=== PATIENT | male | born 1965 | race Caucasian/White ===

== ENCOUNTER 2020-04-07 01:07 | Observation (INO) | payer OTHER ==
[~2020-04-07] VITALS: Ht 185.4 cm; Wt 199.1 kg
--- NOTE | 2020-04-07 01:15 | PHYS DOC ---
Past Medical History Past Medical History: CAD, CHF, MRSA Past Medical History morbid obesity Past Surgical History: Other Past Surgical History cardiac stents [facility] about 2 yrs ago, Ortho surgeries that included ankle fusion, knee surgery, hip surgery and left arm surgery Smoking Status: Never Smoker Alcohol Use: None Drug Use: None General Adult EDM: Chief Complaint: CHEST PAIN HPI: HPI: Patient is a 54 year old male who presents for evaluation of chest pain and upper back pain that started just before arrival. Patient states that it was sudden onset and woke him up from sleep. Patient brought in by [facility] for evaluation. Patient took a [place] and nitroglycerin with improvement of symptoms. Patient states the pain did radiate up into his neck. Patient has a cardiac history and has cardiac stents placed approximately 2 years ago. Patient's last stress test was about 6 months ago. Patient denies any current complaints of chest pain. He was hypertensive on arrival but that improved spontaneously. Patient is normally seen at [facility]. Patient was recently admitted to that facility in the past 48 hours and discharged after treatment of MRSA infection Review of Systems: Review of Systems: Constitutional: Denies fever or chills. [] Eyes: Denies change in visual acuity. [] HENT: Denies nasal congestion or sore throat. [] Respiratory: Denies cough or shortness of breath. [] Cardiovascular: has chest pain and chronic edema. [] GI: Denies abdominal pain, nausea, vomiting, bloody stools or diarrhea. [] : Denies dysuria. [] Musculoskeletal: has upper back pain no joint pain. [] Integument: Denies rash. [] Neurologic: Denies headache, focal weakness or sensory changes. [] Endocrine: Denies polyuria or polydipsia. [] Lymphatic: Denies swollen glands. [] Psychiatric: Denies depression or anxiety. [] Heart Score: HEART Score for Chest Pain: HEART Score for Chest Pain Response (Comments) Value History Moderately Suspicious 1 ECG Normal 0 Age >45 - < 65 1 Risk Factors 1 or 2 Risk Factors 1 Troponin < Normal Limit 0 Total 3 Risk Factors: Risk Factors: DM, Current or recent (<one month) smoker, HTN, HLP, family history of CAD, obesity. Risk Scores: Score 0 - 3: 2.5% MACE over next 6 weeks - Discharge Home Score 4 - 6: 20.3% MACE over next 6 weeks - Admit for Clinical Observation Score 7 - 10: 72.7% MACE over next 6 weeks - Early Invasive Strategies Physical Exam: PE: Constitutional: Well developed, well nourished, mild acute distress, non-toxic appearance. [] HENT: Normocephalic, atraumatic, bilateral external ears normal, oropharynx moist, no oral exudates. [] Eyes: PERRL, EOMI, conjunctiva normal, no discharge. [] Neck: Normal range of motion, no tenderness, supple, no stridor. [] Cardiovascular:Heart rate regular rhythm, no murmur [] Lungs & Thorax: Bilateral breath sounds clear to auscultation [] Abdomen: Bowel sounds normal, soft, no tenderness, no masses. [] Skin: Warm, dry, no erythema, no rash. [] Back: No tenderness. [] Extremities: No tenderness, no cyanosis, ROM intact, no edema. [] Neurologic: Alert and oriented X 3, normal motor function, normal sensory function, no focal deficits noted. [] Psychologic: Affect normal, judgement normal, mood normal. [] Current Patient Data: Labs: Laboratory Tests Test 04/07/20 01:30 04/07/20 01:33 White Blood Count 5.0 x10^3/uL Red Blood Count 4.13 x10^6/uL Hemoglobin 13.5 g/dL Hematocrit 39.5 % Mean Corpuscular Volume 96 fL Mean Corpuscular Hemoglobin 33 pg Mean Corpuscular Hemoglobin Concent 34 g/dL Red Cell Distribution Width 14.1 % Platelet Count 117 x10^3/uL Neutrophils (%) (Auto) 53 % Lymphocytes (%) (Auto) 28 % Monocytes (%) (Auto) 14 % Eosinophils (%) (Auto) 5 % Basophils (%) (Auto) 1 % Neutrophils # (Auto) 2.7 x10^3/uL Lymphocytes # (Auto) 1.4 x10^3/uL Monocytes # (Auto) 0.7 x10^3/uL Eosinophils # (Auto) 0.2 x10^3/uL Basophils # (Auto) 0.0 x10^3/uL Sodium Level 135 mmol/L Potassium Level 4.7 mmol/L Chloride Level 101 mmol/L Carbon Dioxide Level 25 mmol/L Anion Gap 9 Blood Urea Nitrogen 11 mg/dL Creatinine 0.8 mg/dL Estimated GFR (Cockcroft-Gault) 101.5 BUN/Creatinine Ratio 14 Glucose Level 191 mg/dL Calcium Level 8.7 mg/dL Total Bilirubin 0.4 mg/dL Aspartate Amino Transf (AST/SGOT) 53 U/L Alanine Aminotransferase (ALT/SGPT) 29 U/L Alkaline Phosphatase 134 U/L Troponin I Quantitative 0.024 ng/mL EP-[id number]-[id number]-Type Natriuretic Peptide 24 pg/mL Total Protein 6.9 g/dL Albumin 2.7 g/dL Albumin/Globulin Ratio 0.6 Lipase 202 U/L Bedside Troponin I 0.01 ng/ml Current Medications Medications (Trade) Dose Ordered Sig/Arsenio Route PRN Reason Start Time Stop Time Status Last Admin Dose Admin Aspirin (Aspirin Chewable) 324 mg 1X ONCE PO 04/07/20 02:00 04/07/20 02:01 DC 04/07/20 01:42 Hydralazine HCl (Apresoline Inj) 10 mg 1X ONCE IVP 04/07/20 02:00 04/07/20 01:41 DC Iohexol (Omnipaque 350 Mg/ml) 100 ml 1X ONCE IV 04/07/20 03:00 04/07/20 03:01 DC 04/07/20 03:03 Info (CONTRAST GIVEN -- Rx MONITORING) 1 each PRN DAILY PRN MC SEE COMMENTS 04/07/20 02:45 04/09/20 02:44 EKG: EKG: EKG showed normal sinus rhythm, rate 73, leftward axis, inverted T waves lead III, not STEMI read at 1:21 AM [] Radiology/Procedures: Radiology/Procedures: [facility] [address] [place] [address] IMAGING REPORT Signed PATIENT: LEE HILLMAN ACCOUNT: [id number] : 1965 LOCATION: ER AGE: 54 SEX: M EXAM STATUS: REG ER ORD. PHYSICIAN: PENELOPE SHAW DO REASON: chest pain PROCEDURE: PORTABLE CHEST 1V AP portable chest radiograph 04/07/2020 Clinical History: Chest pain. An AP erect portable digital radiograph of the chest was obtained. No Previous studies are available for comparison. The Cardiac silhouette is borderline enlarged. The thoracic aorta is minimally tortuous. Mild elevation of the right hemidiaphragm is noted. Slight prominence of pulmonary vasculature is seen which could reflect mild CHF. Clinical correlation is recommended. No area of consolidation is noted. No pneumothorax or pleural effusion is seen. Degenerative changes are seen involving the thoracic spine. IMPRESSION: Slight prominence of the pulmonary vasculature is seen which could reflect mild CHF. Clinical correlation is recommended. Electronically signed by: Munir Larry MD (04/07/2020 2:12 AM) [id number] DICTATED and SIGNED BY: MUNIR LARRY MD DATE: 04/07/20 021 [] Impression: [facility] [address] [place] [address] IMAGING REPORT Signed PATIENT: LEE HILLMAN ACCOUNT: [id number] : 1965 LOCATION: ER AGE: 54 SEX: M EXAM STATUS: REG ER ORD. PHYSICIAN: PENELOPE SHAW DO REASON: chest pain radiated to back PROCEDURE: CT ANGIOGRAPHY CHEST CTA scan of the Chest with Contrast (Pulmonary Embolism protocol) 04/07/2020 Clinical History: Chest pain which radiates to the back. Technique: After the intravenous administration of 100 cc of Omnipaque 350, contiguous, 0.625 mm axial sections were obtained through the chest. 2 mm axial and 3D MIP coronal and sagittal reconstructed images were obtained. One or more of the following individualized dose reduction techniques were utilized for this study: 1. Automated exposure control. 2. Adjustment of the mA and/or kV according to patient size. 3. Use of iterative reconstruction technique. Findings: Comparison is made to portable chest radiograph formed earlier today. Images from the study are limited to some degree due to the patient's extremely large body habitus. No filling defect is seen within the major branches of either pulmonary artery. There is no CT evidence of pulmonary embolism. The heart is mildly enlarged. A stent is seen in the region of the left anterior descending coronary artery. Mild atherosclerotic calcification of the thoracic aorta is noted. The thoracic aorta is mildly tortuous but tapers normally. Minimal dependent subsegmental atelectasis is seen involving both lungs. No area of consolidation, pleural effusion or pneumothorax is seen. Images through the upper abdomen demonstrate the spleen to the mild to moderately enlarged measuring approximately 17 cm in length. The liver has a nodular contour suggestive of cirrhosis. Degenerative changes are seen involving the thoracic spine. Impression: There is no CT evidence of pulmonary embolism. Electronically signed by: Munir Larry MD (04/07/2020 3:16 AM) [id number] DICTATED and SIGNED BY: MUNIR LARRY MD DATE: 04/07/20 0316 Course & Med Decision Making: Course & Med Decision Making Pertinent Labs and Imaging studies reviewed. (See chart for details) [] Dragon Disclaimer: Dragon Disclaimer: This electronic medical record was generated, in whole or in part, using a voice recognition dictation system. 0227 CT angios chest added for further evaluation. In light of the fact of the sudden onset and severity of the pain and the history given that the pain started in his chest and radiate to his back I wanted to make sure he did not have an obvious aortic dissection versus a pulmonary embolus. 0329 patient was admitted for chest pain overnight observation. First round of cardiac work-up unremarkable and the CT chest is negative for pulmonary embolism. Patient is chest pain-free at this time Departure Departure Impression: Primary Impression: Precordial chest pain Additional Impressions: Congestive heart failure Qualified Codes: I50.9 - Heart failure, unspecified Elevated blood pressure reading Disposition: ADMITTED INPATIENT Admitting Physician: MAGO Condition: STABLE Justicifation of Admission Dx: Justifications for Admission: Justification of Admission Dx: Yes Angina: Symp at Rest PENELOPE SHAW DO Apr 07, 2020 01:15
[2020-04-07 01:37] LABS: BASO % 1 % (0-3); EOS # 0.2 x10^3/uL (0.0-0.7); EOS % 5 % (0-3); HEMATOCRIT 39.5 % (39.0-53.0); HEMOGLOBIN 13.5 g/dL (13.0-17.5); LYMPH # 1.4 x10^3/uL (1.0-4.8); LYMPH % 28 % (24-48); MEAN CORPUSCULAR HEMOGLOBIN 33 pg (25-35); MEAN CORPUSCULAR HGB CONC 34 g/dL (31-37); MEAN CORPUSCULAR VOLUME 96 fL (79-100); MONO # 0.7 x10^3/uL (0.0-1.1); MONO % 14 % (0-9); NEUT # 2.7 x10^3/uL (1.8-7.7); NEUT % 53 % (31-73); PLATELET COUNT 117 x10^3/uL (140-400); RED BLOOD COUNT 4.13 x10^6/uL (4.30-5.70); RED CELL DISTRIBUTION WIDTH 14.1 % (11.5-14.5)
[2020-04-07 01:48] LABS: CALCIUM 8.7 mg/dL (8.5-10.1); CREATININE 0.8 mg/dL (0.7-1.3); GFR 101.5; POTASSIUM 4.7 mmol/L (3.5-5.1)
[2020-04-07 01:53] LABS: ALBUMIN 2.7 g/dL (3.4-5.0); ALBUMIN/GLOBULIN RATIO 0.6 (1.0-1.7); TOTAL BILIRUBIN 0.4 mg/dL (0.2-1.0); TOTAL PROTEIN 6.9 g/dL (6.4-8.2)
[2020-04-07] MEDS ORDERED: hydrALAZINE 20 MG/ML VIAL. IVP ONE (02:00)
[2020-04-07] MEDS ORDERED: ASPIRIN CHEWABLE 81 MG TABLET. PO ONE (02:00)
--- NOTE | 2020-04-07 02:15 | RAD ---
AP portable chest radiograph 04/07/2020 Clinical History: Chest pain. An AP erect portable digital radiograph of the chest was obtained. No Previous studies are available for comparison. The Cardiac silhouette is borderline enlarged. The thoracic aorta is minimally tortuous. Mild elevation of the right hemidiaphragm is noted. Slight prominence of pulmonary vasculature is seen which could reflect mild CHF. Clinical correlation is recommended. No area of consolidation is noted. No pneumothorax or pleural effusion is seen. Degenerative changes are seen involving the thoracic spine. IMPRESSION: Slight prominence of the pulmonary vasculature is seen which could reflect mild CHF. Clinical correlation is recommended. Electronically signed by: Munir Cole MD (04/07/2020 2:12 AM) [id number]
[2020-04-07] MEDS ORDERED: CONTRAST GIVEN. MC PRN (02:45)
[2020-04-07] MEDS ORDERED: IOHEXOL 350 MG/ML 100 ML VIAL. IV ONE (03:00)
--- NOTE | 2020-04-07 03:19 | RAD ---
CTA scan of the Chest with Contrast (Pulmonary Embolism protocol) 04/07/2020 Clinical History: Chest pain which radiates to the back. Technique: After the intravenous administration of 100 cc of Omnipaque 350, contiguous, 0.625 mm axial sections were obtained through the chest. 2 mm axial and 3D MIP coronal and sagittal reconstructed images were obtained. One or more of the following individualized dose reduction techniques were utilized for this study: 1. Automated exposure control. 2. Adjustment of the mA and/or kV according to patient size. 3. Use of iterative reconstruction technique. Findings: Comparison is made to portable chest radiograph formed earlier today. Images from the study are limited to some degree due to the patient's extremely large body habitus. No filling defect is seen within the major branches of either pulmonary artery. There is no CT evidence of pulmonary embolism. The heart is mildly enlarged. A stent is seen in the region of the left anterior descending coronary artery. Mild atherosclerotic calcification of the thoracic aorta is noted. The thoracic aorta is mildly tortuous but tapers normally. Minimal dependent subsegmental atelectasis is seen involving both lungs. No area of consolidation, pleural effusion or pneumothorax is seen. Images through the upper abdomen demonstrate the spleen to the mild to moderately enlarged measuring approximately 17 cm in length. The liver has a nodular contour suggestive of cirrhosis. Degenerative changes are seen involving the thoracic spine. Impression: There is no CT evidence of pulmonary embolism. Electronically signed by: Munir Cole MD (04/07/2020 3:16 AM) [id number]
[2020-04-07] MEDS ORDERED: ONDANSETRON PF 4 MG/2 ML VIAL. IV PRN ×2 (03:45→09:30)
[2020-04-07 04:51] VITALS: BP 124/51
[2020-04-07] MEDS ORDERED: POTA10TA12 PO (05:33)
[2020-04-07] MEDS ORDERED: LISI-334 PO (05:33)
[2020-04-07] MEDS ORDERED: PRAV10TA2 PO (05:33)
[2020-04-07] MEDS ORDERED: LINE600T12 PO (05:33)
[2020-04-07] MEDS ORDERED: CARV25TA PO (05:33)
[2020-04-07] MEDS ORDERED: FURO20TA3 PO (05:33)
--- NOTE | 2020-04-07 06:28 | PDOC1 ---
History and Physical Date of Admission Date of Admission DATE: 04/07/20 TIME: 06:27 Identification/Chief Complaint Chief Complaint seen in er for evaluation of chest pain and upper back pain that started just before arrival. Patient states that it was sudden onset and woke him up from sleep. Patient brought in by [facility] for evaluation. Patient took a [place] and nitroglycerin with improvement of symptoms. Patient states the pain did radiate up into his neck. Patient has a cardiac history and has cardiac stents placed approximately 2 years ago. Patient's last stress test was about 6 months ago. Patient denies any current complaints of chest pain. He was hypertensive on arrival but that improved Patient is normally seen at [facility]. Patient was recently admitted to that facility in the past 48 hours and discharged after treatment of MRSA infection Past Medical History Past Medical History Past Medical History Past Medical History Past Medical History: CAD, CHF, MRSA Past Medical History morbid obesity Past Surgical History: Other Past Surgical History cardiac stents [facility] about 2 yrs ago, Ortho surgeries that included ankle fusion, knee surgery, hip surgery and left arm surgery Smoking Status: Never Smoker Alcohol Use: None Drug Use: None Cardiovascular: CHF, HTN Infectious disease: Other (CELLULITIS, MRSA) Family History Family History: High Cholestrol, Hypertension Social History Smoke: No ALCOHOL: none Drugs: None Current Problem List Problem List Problems Medical Problems: (1) Congestive heart failure Status: Acute (2) Elevated blood pressure reading Status: Acute (3) Precordial chest pain Status: Acute Current Medications Current Medications Current Medications Aspirin (Aspirin Chewable) 324 mg 1X ONCE PO Last administered on 04/07/20at 01:42; Start 04/07/20 at 02:00; Stop 04/07/20 at 02:01; Status DC Hydralazine HCl (Apresoline Inj) 10 mg 1X ONCE IVP ; Start 04/07/20 at 02:00; Stop 04/07/20 at 01:41; Status DC Iohexol (Omnipaque 350 Mg/ml) 100 ml 1X ONCE IV Last administered on 04/07/20at 03:03; Start 04/07/20 at 03:00; Stop 04/07/20 at 03:01; Status DC Info (CONTRAST GIVEN -- Rx MONITORING) 1 each PRN DAILY PRN MC SEE COMMENTS; Start 04/07/20 at 02:45; Stop 04/09/20 at 02:44 Ondansetron HCl (Zofran) 4 mg PRN Q8HRS PRN IV NAUSEA/VOMITING 1ST CHOICE; Start 04/07/20 at 03:45; Stop 04/08/20 at 03:44 Active Scripts Active Reported Zyvox (Linezolid) 600 Mg Tablet 600 Mg PO BID Klor-Con 10 (Potassium Chloride) 10 Meq Tablet.er 10 Meq PO DAILY Furosemide 20 Mg Tablet 20 Mg PO TIDAC Lisinopril 20 Mg Tablet 20 Mg PO DAILY Coreg (Carvedilol) 25 Mg Tablet 25 Mg PO BIDWMEALS Pravastatin Sodium 10 Mg Tablet 1 Tab PO DAILY Allergies Allergies: Coded Allergies: No Known Drug Allergies (Unverified , 04/07/20) ROS Review of System Constitutional: Denies fever or chills. [] Eyes: Denies change in visual acuity. [] HENT: Denies nasal congestion or sore throat. [] Respiratory: Denies cough or shortness of breath. [] Cardiovascular: has chest pain and chronic edema. [] GI: Denies abdominal pain, nausea, vomiting, bloody stools or diarrhea. [] : Denies dysuria. [] Musculoskeletal: has upper back pain no joint pain. [] Integument: Denies rash. [] Neurologic: Denies headache, focal weakness or sensory changes. [] Endocrine: Denies polyuria or polydipsia. [] Lymphatic: Denies swollen glands. [] Psychiatric: Denies depression or anxiety. [] 14 PT ROS OTHERWISE NEG General: YES: Fatigue Cardiovascular: yes Chest Pain Neurological: No Behavorial Changes, No Bowel/Bladder ControlChng, No Confusion, No Dizziness, No Gait Disturbance, No Headaches, No Impaired Coord/balance, No Memory Loss, No Numbness/Tingling, No Seizures, No Speech Problems, No Tremors, No Visual Changes, No Weakness, No Other Skin: Yes Skin Lesion Changes Physical Exam Physical Exam Constitutional: Well developed, well nourished, NO acute distress, non-toxic appearance. [] HENT: Normocephalic, atraumatic, bilateral external ears normal, oropharynx moist, no oral exudates. [] Eyes: PERRL, EOMI, conjunctiva normal, no discharge. [] Neck: Normal range of motion, no tenderness, supple, no stridor. [] Cardiovascular:Heart rate regular rhythm, no murmur [] Lungs & Thorax: Bilateral breath sounds clear to auscultation [] Abdomen: Bowel sounds normal, soft, no tenderness, no masses. [] Skin: Warm, LEFT UPPER, LATERAL CHEST WALL SWELLING, ERYTHEMA, NEAR AXILLA Back: No tenderness. [] Extremities: No tenderness, no cyanosis, ROM intact, no edema. [] Neurologic: Alert and oriented X 3, normal motor function, normal sensory function, no focal deficits noted. [] Psychologic: Affect normal, judgment normal, mood normal. [] General: Alert, Oriented X3, Cooperative, No acute distress HEENT: EOMI, Mucous membr. moist/pink Lungs: Clear to auscultation, Normal air movement Heart: RRR, no thrills Abdomen: Normal bowel sounds, Soft, Other (VERY OBESE) Rectal Exam: not examined PELVIC: Examination not indicated Extremities: No cyanosis Neuro: Normal speech, Cranial nerves 3-12 NL Psych/Mental Status: Mental status NL, Mood NL Vitals Vitals Vital Signs Date Time Temp Pulse Resp B/P (MAP) Pulse Ox O2 Delivery O2 Flow Rate FiO2 04/07/20 04:51 97.8 61 20 124/51 (75) 97 Room Air 97.8 Labs Labs Laboratory Tests Test 04/07/20 01:30 04/07/20 01:33 White Blood Count 5.0 x10^3/uL (4.0-11.0) Red Blood Count 4.13 x10^6/uL (4.30-5.70) Hemoglobin 13.5 g/dL (13.0-17.5) Hematocrit 39.5 % (39.0-53.0) Mean Corpuscular Volume 96 fL (79-100) Mean Corpuscular Hemoglobin 33 pg (25-35) Mean Corpuscular Hemoglobin Concent 34 g/dL (31-37) Red Cell Distribution Width 14.1 % (11.5-14.5) Platelet Count 117 x10^3/uL (140-400) Neutrophils (%) (Auto) 53 % (31-73) Lymphocytes (%) (Auto) 28 % (24-48) Monocytes (%) (Auto) 14 % (0-9) Eosinophils (%) (Auto) 5 % (0-3) Basophils (%) (Auto) 1 % (0-3) Neutrophils # (Auto) 2.7 x10^3/uL (1.8-7.7) Lymphocytes # (Auto) 1.4 x10^3/uL (1.0-4.8) Monocytes # (Auto) 0.7 x10^3/uL (0.0-1.1) Eosinophils # (Auto) 0.2 x10^3/uL (0.0-0.7) Basophils # (Auto) 0.0 x10^3/uL (0.0-0.2) Sodium Level 135 mmol/L (136-145) Potassium Level 4.7 mmol/L (3.5-5.1) Chloride Level 101 mmol/L (98-107) Carbon Dioxide Level 25 mmol/L (21-32) Anion Gap 9 (6-14) Blood Urea Nitrogen 11 mg/dL (8-26) Creatinine 0.8 mg/dL (0.7-1.3) Estimated GFR (Cockcroft-Gault) 101.5 BUN/Creatinine Ratio 14 (6-20) Glucose Level 191 mg/dL (70-99) Calcium Level 8.7 mg/dL (8.5-10.1) Total Bilirubin 0.4 mg/dL (0.2-1.0) Aspartate Amino Transf (AST/SGOT) 53 U/L (15-37) Alanine Aminotransferase (ALT/SGPT) 29 U/L (16-63) Alkaline Phosphatase 134 U/L (46-116) Troponin I Quantitative 0.024 ng/mL (0.000-0.055) HM-Htz-Y-Type Natriuretic Peptide 24 pg/mL (0-124) Total Protein 6.9 g/dL (6.4-8.2) Albumin 2.7 g/dL (3.4-5.0) Albumin/Globulin Ratio 0.6 (1.0-1.7) Lipase 202 U/L (73-393) Bedside Troponin I 0.01 ng/ml (<0.08) Laboratory Tests Test 04/07/20 01:30 04/07/20 01:33 White Blood Count 5.0 x10^3/uL (4.0-11.0) Red Blood Count 4.13 x10^6/uL (4.30-5.70) Hemoglobin 13.5 g/dL (13.0-17.5) Hematocrit 39.5 % (39.0-53.0) Mean Corpuscular Volume 96 fL (79-100) Mean Corpuscular Hemoglobin 33 pg (25-35) Mean Corpuscular Hemoglobin Concent 34 g/dL (31-37) Red Cell Distribution Width 14.1 % (11.5-14.5) Platelet Count 117 x10^3/uL (140-400) Neutrophils (%) (Auto) 53 % (31-73) Lymphocytes (%) (Auto) 28 % (24-48) Monocytes (%) (Auto) 14 % (0-9) Eosinophils (%) (Auto) 5 % (0-3) Basophils (%) (Auto) 1 % (0-3) Neutrophils # (Auto) 2.7 x10^3/uL (1.8-7.7) Lymphocytes # (Auto) 1.4 x10^3/uL (1.0-4.8) Monocytes # (Auto) 0.7 x10^3/uL (0.0-1.1) Eosinophils # (Auto) 0.2 x10^3/uL (0.0-0.7) Basophils # (Auto) 0.0 x10^3/uL (0.0-0.2) Sodium Level 135 mmol/L (136-145) Potassium Level 4.7 mmol/L (3.5-5.1) Chloride Level 101 mmol/L (98-107) Carbon Dioxide Level 25 mmol/L (21-32) Anion Gap 9 (6-14) Blood Urea Nitrogen 11 mg/dL (8-26) Creatinine 0.8 mg/dL (0.7-1.3) Estimated GFR (Cockcroft-Gault) 101.5 BUN/Creatinine Ratio 14 (6-20) Glucose Level 191 mg/dL (70-99) Calcium Level 8.7 mg/dL (8.5-10.1) Total Bilirubin 0.4 mg/dL (0.2-1.0) Aspartate Amino Transf (AST/SGOT) 53 U/L (15-37) Alanine Aminotransferase (ALT/SGPT) 29 U/L (16-63) Alkaline Phosphatase 134 U/L (46-116) Troponin I Quantitative 0.024 ng/mL (0.000-0.055) QN-Qps-Q-Type Natriuretic Peptide 24 pg/mL (0-124) Total Protein 6.9 g/dL (6.4-8.2) Albumin 2.7 g/dL (3.4-5.0) Albumin/Globulin Ratio 0.6 (1.0-1.7) Lipase 202 U/L (73-393) Bedside Troponin I 0.01 ng/ml (<0.08) Images Images CTA scan of the Chest with Contrast (Pulmonary Embolism protocol) 04/07/2020 Clinical History: Chest pain which radiates to the back. Technique: After the intravenous administration of 100 cc of Omnipaque 350, contiguous, 0.625 mm axial sections were obtained through the chest. 2 mm axial and 3D MIP coronal and sagittal reconstructed images were obtained. One or more of the following individualized dose reduction techniques were utilized for this study: 1. Automated exposure control. 2. Adjustment of the mA and/or kV according to patient size. 3. Use of iterative reconstruction technique. Findings: Comparison is made to portable chest radiograph formed earlier today. Images from the study are limited to some degree due to the patient's extremely large body habitus. No filling defect is seen within the major branches of either pulmonary artery. There is no CT evidence of pulmonary embolism. The heart is mildly enlarged. A stent is seen in the region of the left anterior descending coronary artery. Mild atherosclerotic calcification of the thoracic aorta is noted. The thoracic aorta is mildly tortuous but tapers normally. Minimal dependent subsegmental atelectasis is seen involving both lungs. No area of consolidation, pleural effusion or pneumothorax is seen. Images through the upper abdomen demonstrate the spleen to the mild to moderately enlarged measuring approximately 17 cm in length. The liver has a nodular contour suggestive of cirrhosis. Degenerative changes are seen involving the thoracic spine. Impression: There is no CT evidence of pulmonary embolism. Electronically signed by: Munir Cole MD (04/07/2020 3:16 AM) [id number] DICTATED and SIGNED BY: MUNIR COLE MD VTE Prophylaxis Ordered VTE Prophylaxis Devices: Yes VTE Pharmacological Prophylaxi: Yes Assessment/Plan Assessment/Plan Impression: Acute CHEST PAIN, ANGINA no CT evidence of pulmonary embolism. ON CTA Morbid OBESITY mrsa left chest wall cellulitis EPIGASTRIC PAIN cad with stents PLAN ADMIT CVC BED Serial troponin i consult cardiology CONSULT ID PO ZYVOX FOR NOW MELISSA NDIAYE D/W ER DR Oliviaicifation of Admission Dx: Justifications for Admission: Justification of Admission Dx: Yes Angina: Symp at Rest RODERICK MAXWELL MD Apr 07, 2020 06:28
[2020-04-07 07:00] VITALS: BP 129/40
[2020-04-07 07:30] LABS: BILIRUBIN,URINE NEGATIVE (NEG); CLARITY,URINE CLEAR; COLOR,URINE YELLOW; NITRITE,URINE NEGATIVE (NEG); PROTEIN,URINE NEGATIVE (NEG-TRACE); UROBILINOGEN,URINE 0.2 mg/dL (0.2 mg/dL)
[2020-04-07 07:46] LABS: BACTERIA,URINE 0 /HPF (0-FEW); RBC,URINE 0 /HPF (0-2); SQUAMOUS EPITHELIAL CELL,UR OCC /LPF; WBC,URINE 0 /HPF (0-4)
[2020-04-07] MEDS ORDERED: LINEZOLID 600 MG TABLET PO SCH (09:00)
[2020-04-07] MEDS ORDERED: LISINOPRIL 20 MG TABLET PO SCH (09:00)
[2020-04-07] MEDS ORDERED: POTASSIUM CHLORIDE 10 MEQ TABLET.ER. PO SCH (09:00)
[2020-04-07] MEDS ORDERED: IV NORMAL SALINE 1000ML BAG 1,000 ML IV SCH (09:25)
[2020-04-07] MEDS ORDERED: 0.9 % SODIUM CHLORIDE 10 ML DISP.SYRIN. IV PRN (09:30)
[2020-04-07] MEDS ORDERED: ALBUTEROL SULFATE 2.5 MG/3 ML NEBU. NEB PRN (09:30)
[2020-04-07] MEDS ORDERED: ACETAMINOPHEN 325 MG TABLET. PO PRN (09:30)
[2020-04-07] MEDS ORDERED: DOCUSATE SODIUM 100 MG CAPSULE. PO PRN (09:30)
[2020-04-07] MEDS ORDERED: CARVEDILOL 12.5 MG TABLET. PO SCH (09:30)
[2020-04-07] MEDS ORDERED: FUROSEMIDE 20 MG TABLET PO SCH (09:30)
[2020-04-07 11:29] VITALS: BP 127/61
--- NOTE | 2020-04-07 11:52 | CONS ---
DATE OF CONSULTATION: 04/07/2020 REQUESTING PHYSICIAN: Dr. King. REASON FOR CONSULTATION: Left chest wall abscess. HISTORY OF PRESENT ILLNESS: This is a 54-year-old gentleman who has morbid obesity, who was at [facility] from Friday to Friday with a left chest wall abscess, an I and D was done in the ER and the patient was admitted, it turned out to be MRSA. The patient was discharged on Zyvox. The patient was taking it and he had chest pain, hence he was brought in here. The patient is doing fine. The patient says he is ready to go home. I have been consulted for that MRSA abscess. The patient denies any nausea, vomiting, diarrhea, chest pain, shortness of breath, abdominal pain, urinary symptoms or bowel symptoms. The area of the left chest, where the cellulitis and abscess, which is significantly improved, there is no redness. There is a packing in place and minimal drainage present. Rest of skin examination unremarkable. PMH Obesity, HTN, CAD, THEO SH neg for smoking or etoh or drugs ROS : as per HPI,rest neg PHYSICAL EXAMINATION: HEENT: NAD. NECK: Supple. LUNGS: Clear. HEART: S1, S2 regular. ABDOMEN: Benign. EXTREMITIES: No edema, cyanosis. SKIN: Unremarkable other than what I mentioned. NEUROLOGICAL: The patient is alert, awake and appropriate. No focal neurologic deficit. LABORATORY DATA: White count is normal. BUN and creatinine are normal. Urinalysis unremarkable. Chest CT was negative for pulmonary embolism. IMPRESSION: 1. Left chest wall abscess and cellulitis, which have significantly improved. 2. Chest pain. 3. Obesity. 4. Hypertension. 5. Coronary artery disease. 6. Obstructive sleep apnea. RECOMMENDATIONS: I would continue Zyvox. He has 10 more days' worth of Zyvox at home. He should take it and finish it and he does have followup with his primary care. Thank you very much, Dr. King, for giving me the opportunity to participate in this patient's care. LINDA SESAY MD DR: TRACEE/zach JOB#: [id number] / [id number]
--- NOTE | 2020-04-07 12:25 | NUR ---
SS following for discharge planning. SS reviewed pt chart and discussed with pt RN. Pt is from home with spouse and is currently on room air. Possible discharge to home today. SS will continue to follow for discharge planning.
--- NOTE | 2020-04-07 12:32 | PDOC2 ---
CONSULT Date of Consult Date of Consult DATE: 04/07/20 TIME: 12:32 Reason for Consult Reason for Consult: Chest pain Referring Physician Referring Physician: Dr. King Identification/Chief Complaint Chief Complaint Chest pain Source Source: Chart review, Patient History of Present Illness Reason for Visit: 54-year-old male presented complaining of chest pain that is mostly inframammary that started this morning and was relieved after he burped. He rated the pain at 2/10 severity and not related to exertion. He stated that the pain was totally different than the pain he had prior to his previous angioplasty 2 years ago. He usually sees milieu manager at [facility]. He apparently had a stress test in October 2019 and was told it was normal. More recently, he was admitted to [facility] for left chest wall abscess and cellulitis that turned out to be MRSA infection and was discharged home on Zyvox by ID team. He denied any orthopnea/PND, palpitations or syncope. Past Medical History Cardiovascular: CAD (s/p PCI/stent placement 2 years ago), CHF, HTN Infectious disease: Other (CELLULITIS, MRSA) Past Surgical History Past Surgical History Ankle fusion surgery Knee surgery Hip surgery Recent abscess drainage Family History Family History: High Cholestrol, Hypertension Social History No ALCOHOL: none Drugs: None Current Problem List Problem List Problems Medical Problems: (1) Congestive heart failure Status: Acute (2) Elevated blood pressure reading Status: Acute (3) Precordial chest pain Status: Acute Current Medications Current Medications Current Medications Aspirin (Aspirin Chewable) 324 mg 1X ONCE PO Last administered on 04/07/20at 01:42; Start 04/07/20 at 02:00; Stop 04/07/20 at 02:01; Status DC Hydralazine HCl (Apresoline Inj) 10 mg 1X ONCE IVP ; Start 04/07/20 at 02:00; Stop 04/07/20 at 01:41; Status DC Iohexol (Omnipaque 350 Mg/ml) 100 ml 1X ONCE IV Last administered on 04/07/20at 03:03; Start 04/07/20 at 03:00; Stop 04/07/20 at 03:01; Status DC Info (CONTRAST GIVEN -- Rx MONITORING) 1 each PRN DAILY PRN MC SEE COMMENTS; Start 04/07/20 at 02:45; Stop 7/19/20 at 02:44 Ondansetron HCl (Zofran) 4 mg PRN Q8HRS PRN IV NAUSEA/VOMITING 1ST CHOICE; Start 04/07/20 at 03:45; Stop 04/08/20 at 03:44 Furosemide (Lasix) 20 mg TIDAC PO ; Start 04/07/20 at 09:30 Linezolid (Zyvox) 600 mg BID PO ; Start 04/07/20 at 09:00 Lisinopril (Prinivil) 20 mg DAILY PO ; Start 04/07/20 at 09:00 Potassium Chloride (Klor-Con) 10 meq DAILY PO ; Start 04/07/20 at 09:00 Carvedilol (Coreg) 25 mg BIDWMEALS PO ; Start 04/07/20 at 09:30 Atorvastatin Calcium (Lipitor) 5 mg QHS PO ; Start 04/07/20 at 21:00 Sodium Chloride (Normal Saline Flush) 3 ml QSHIFT PRN IV AFTER MEDS AND BLOOD DRAWS; Start 04/07/20 at 09:30 Sodium Chloride 1,000 ml @ 60 mls/hr [id number] IV ; Start 04/07/20 at 09:25 Ondansetron HCl (Zofran) 4 mg PRN Q4HRS PRN IV NAUSEA/VOMITING; Start 04/07/20 at 09:30 Acetaminophen (Tylenol) 650 mg PRN Q4HRS PRN PO TEMP OVER 100.4F OR MILD PAIN; Start 04/07/20 at 09:30 Docusate Sodium (Colace) 100 mg PRN BID PRN PO HARD STOOLS; Start 04/07/20 at 09:30 Albuterol Sulfate (Ventolin Neb Soln) 2.5 mg PRN Q4HRS PRN NEB SHORTNESS OF B REATH; Start 04/07/20 at 09:30 Enoxaparin Sodium (Lovenox 60mg Syringe) 60 mg Q12HR SQ ; Start 04/07/20 at 10:00 Active Scripts Active Reported Zyvox (Linezolid) 600 Mg Tablet 600 Mg PO BID Klor-Con 10 (Potassium Chloride) 10 Meq Tablet.er 10 Meq PO DAILY Furosemide 20 Mg Tablet 20 Mg PO TIDAC Lisinopril 20 Mg Tablet 20 Mg PO DAILY Coreg (Carvedilol) 25 Mg Tablet 25 Mg PO BIDWMEALS Pravastatin Sodium 10 Mg Tablet 1 Tab PO DAILY Allergies Allergies: Coded Allergies: No Known Drug Allergies (Unverified , 04/07/20) ROS PSYCHOLOGICAL ROS: No: Hallucinations Eyes: No Loss of vision HEENT: No: Epistaxis Respiratory: No: Hemoptysis Cardiovascular: yes Chest Pain Gastrointestinal: No Vomiting, No Diarrhea Genitourinary: No Hematuria Neurological: No Seizures Skin: No Rash Physical Exam General: Alert, Oriented X3 HEENT: Atraumatic, PERRLA Lungs: Clear to auscultation Heart: Regular rate Abdomen: Soft Neuro: Normal speech Psych/Mental Status: Mood NL Vitals VITALS Vital Signs Date Time Temp Pulse Resp B/P (MAP) Pulse Ox O2 Delivery O2 Flow Rate FiO2 04/07/20 11:33 96 Room Air 04/07/20 11:29 98.0 66 127/61 (83) 98.0 04/07/20 04:51 20 Labs Labs Laboratory Tests Test 04/07/20 01:30 04/07/20 01:33 04/07/20 07:10 04/07/20 07:30 White Blood Count 5.0 x10^3/uL (4.0-11.0) Red Blood Count 4.13 x10^6/uL (4.30-5.70) Hemoglobin 13.5 g/dL (13.0-17.5) Hematocrit 39.5 % (39.0-53.0) Mean Corpuscular Volume 96 fL (79-100) Mean Corpuscular Hemoglobin 33 pg (25-35) Mean Corpuscular Hemoglobin Concent 34 g/dL (31-37) Red Cell Distribution Width 14.1 % (11.5-14.5) Platelet Count 117 x10^3/uL (140-400) Neutrophils (%) (Auto) 53 % (31-73) Lymphocytes (%) (Auto) 28 % (24-48) Monocytes (%) (Auto) 14 % (0-9) Eosinophils (%) (Auto) 5 % (0-3) Basophils (%) (Auto) 1 % (0-3) Neutrophils # (Auto) 2.7 x10^3/uL (1.8-7.7) Lymphocytes # (Auto) 1.4 x10^3/uL (1.0-4.8) Monocytes # (Auto) 0.7 x10^3/uL (0.0-1.1) Eosinophils # (Auto) 0.2 x10^3/uL (0.0-0.7) Basophils # (Auto) 0.0 x10^3/uL (0.0-0.2) Sodium Level 135 mmol/L (136-145) Potassium Level 4.7 mmol/L (3.5-5.1) Chloride Level 101 mmol/L (98-107) Carbon Dioxide Level 25 mmol/L (21-32) Anion Gap 9 (6-14) Blood Urea Nitrogen 11 mg/dL (8-26) Creatinine 0.8 mg/dL (0.7-1.3) Estimated GFR (Cockcroft-Gault) 101.5 BUN/Creatinine Ratio 14 (6-20) Glucose Level 191 mg/dL (70-99) Calcium Level 8.7 mg/dL (8.5-10.1) Total Bilirubin 0.4 mg/dL (0.2-1.0) Aspartate Amino Transf (AST/SGOT) 53 U/L (15-37) Alanine Aminotransferase (ALT/SGPT) 29 U/L (16-63) Alkaline Phosphatase 134 U/L (46-116) Troponin I Quantitative 0.024 ng/mL (0.000-0.055) 0.045 ng/mL (0.000-0.055) FD-Ohn-M-Type Natriuretic Peptide 24 pg/mL (0-124) Total Protein 6.9 g/dL (6.4-8.2) Albumin 2.7 g/dL (3.4-5.0) Albumin/Globulin Ratio 0.6 (1.0-1.7) Lipase 202 U/L (73-393) Bedside Troponin I 0.01 ng/ml (<0.08) Urine Collection Type Unknown Urine Color Yellow Urine Clarity Clear Urine pH 6.0 (<5.0-8.0) Urine Specific [place]andy[place] >=1.030 (1.000-1.030) Urine Protein Negative mg/dL (NEG-TRACE) Urine Glucose (UA) Negative mg/dL (NEG) Urine Ketones (Stick) Negative mg/dL (NEG) Urine Blood Negative (NEG) Urine Nitrite Negative (NEG) Urine Bilirubin Negative (NEG) Urine Urobilinogen Dipstick 0.2 mg/dL (0.2 mg/dL) Urine Leukocyte Esterase Negative (NEG) Urine RBC 0 /HPF (0-2) Urine WBC 0 /HPF (0-4) Urine Squamous Epithelial Cells Occ /LPF Urine Bacteria 0 /HPF (0-FEW) Laboratory Tests Test 04/07/20 01:30 04/07/20 01:33 04/07/20 07:10 04/07/20 07:30 White Blood Count 5.0 x10^3/uL (4.0-11.0) Red Blood Count 4.13 x10^6/uL (4.30-5.70) Hemoglobin 13.5 g/dL (13.0-17.5) Hematocrit 39.5 % (39.0-53.0) Mean Corpuscular Volume 96 fL (79-100) Mean Corpuscular Hemoglobin 33 pg (25-35) Mean Corpuscular Hemoglobin Concent 34 g/dL (31-37) Red Cell Distribution Width 14.1 % (11.5-14.5) Platelet Count 117 x10^3/uL (140-400) Neutrophils (%) (Auto) 53 % (31-73) Lymphocytes (%) (Auto) 28 % (24-48) Monocytes (%) (Auto) 14 % (0-9) Eosinophils (%) (Auto) 5 % (0-3) Basophils (%) (Auto) 1 % (0-3) Neutrophils # (Auto) 2.7 x10^3/uL (1.8-7.7) Lymphocytes # (Auto) 1.4 x10^3/uL (1.0-4.8) Monocytes # (Auto) 0.7 x10^3/uL (0.0-1.1) Eosinophils # (Auto) 0.2 x10^3/uL (0.0-0.7) Basophils # (Auto) 0.0 x10^3/uL (0.0-0.2) Sodium Level 135 mmol/L (136-145) Potassium Level 4.7 mmol/L (3.5-5.1) Chloride Level 101 mmol/L (98-107) Carbon Dioxide Level 25 mmol/L (21-32) Anion Gap 9 (6-14) Blood Urea Nitrogen 11 mg/dL (8-26) Creatinine 0.8 mg/dL (0.7-1.3) Estimated GFR (Cockcroft-Gault) 101.5 BUN/Creatinine Ratio 14 (6-20) Glucose Level 191 mg/dL (70-99) Calcium Level 8.7 mg/dL (8.5-10.1) Total Bilirubin 0.4 mg/dL (0.2-1.0) Aspartate Amino Transf (AST/SGOT) 53 U/L (15-37) Alanine Aminotransferase (ALT/SGPT) 29 U/L (16-63) Alkaline Phosphatase 134 U/L (46-116) Troponin I Quantitative 0.024 ng/mL (0.000-0.055) 0.045 ng/mL (0.000-0.055) YS-Hqz-H-Type Natriuretic Peptide 24 pg/mL (0-124) Total Protein 6.9 g/dL (6.4-8.2) Albumin 2.7 g/dL (3.4-5.0) Albumin/Globulin Ratio 0.6 (1.0-1.7) Lipase 202 U/L (73-393) Bedside Troponin I 0.01 ng/ml (<0.08) Urine Collection Type Unknown Urine Color Yellow Urine Clarity Clear Urine pH 6.0 (<5.0-8.0) Urine Specific [place] >=1.030 (1.000-1.030) Urine Protein Negative mg/dL (NEG-TRACE) Urine Glucose (UA) Negative mg/dL (NEG) Urine Ketones (Stick) Negative mg/dL (NEG) Urine Blood Negative (NEG) Urine Nitrite Negative (NEG) Urine Bilirubin Negative (NEG) Urine Urobilinogen Dipstick 0.2 mg/dL (0.2 mg/dL) Urine Leukocyte Esterase Negative (NEG) Urine RBC 0 /HPF (0-2) Urine WBC 0 /HPF (0-4) Urine Squamous Epithelial Cells Occ /LPF Urine Bacteria 0 /HPF (0-FEW) Assessment/Plan Assessment/Plan 1. Chest pain with atypical features and most probably GI etiology. Myocardial infarction has been ruled out. Patient has history of coronary artery disease and had stents placement 2 years ago but had a negative stress test recently in October of this year. Okay for DC from cardiac standpoint and follow-up with primary milieu manager. 2. Hypertension: Controlled 3. Hyperlipidemia: Continue statins 4. Patient stated that he has history of CHF, most probably chronic diastolic heart failure. He is clinically well compensated. Continue Lasix. Thank you for your consultation DANIEL MILIAN MD Apr 07, 2020 12:32
[2020-04-07 13:34] VITALS: BP 127/61
--- NOTE | 2020-04-07 14:07 | NUR ---
Discharge Note: [facility] Discharge instructions and discharge home medications reviewed with Patient and a copy given. All questions have been answered and understanding verbalized. The following instructions and handouts were given: chest pain, wound care, cardiac diet. Discontinued iv line and catheter intact. Patient discharged to home with self-care via private vehicle.
--- NOTE | 2020-04-07 17:37 | NUR ---
Wound Care Pt discharged prior to arrival of WC team.
[2020-04-07] MEDS ORDERED: ATORVASTATIN CALCIUM 10 MG TABLET. PO SCH (21:00)
== END 2020-04-07 14:04 | disposition home or self-care (01) ==
LOC: ER 01:07 → 2 SOUTH 03:27
PROVIDERS: ADMIT Family Medicine; ATTEND Family Medicine
DX: I11.0 Hypertensive heart disease with heart failure (principal); I50.9 Heart failure, unspecified; R07.2 Precordial pain; B95.62 Methicillin resistant Staphylococcus aureus infection as the cause of diseases classified elsewhere; E66.01 Morbid (severe) obesity due to excess calories; E78.5 Hyperlipidemia, unspecified; G47.33 Obstructive sleep apnea (adult) (pediatric); Z95.1 Presence of aortocoronary bypass graft; Z79.82 Long term (current) use of aspirin; Z98.890 Other specified postprocedural states; Z68.43 Body mass index [BMI] 50.0-59.9, adult
CPT/HCPCS: 36415; 71045; 71275; 80053; 81001; 83690; 83880; 84484; 85025; 99285; G0378; Q9967; G0379

== ENCOUNTER 2020-04-30 19:57 | Observation (INO) | payer OTHER ==
[~2020-04-30] VITALS: Ht 182.9 cm; Wt 187.9 kg
[~2020-04-30 19:57] MED LIST: CARV25TA PO; FURO20TA3 PO; LINE600T12 PO; LISI-334 PO; POTA10TA12 PO; PRAV10TA2 PO
--- NOTE | 2020-04-30 21:09 | PHYS DOC ---
Past Medical History Past Medical History: CAD, CHF, MRSA Additional Past Medical Histor: NUMEROUS ORTHOPEDIC SURGERIES Past Surgical History: Other Additional Past Surgical Histo: MOST SURGICAL HX IS WITH [facility] Smoking Status: Never Smoker Alcohol Use: None Drug Use: None General Adult EDM: Chief Complaint: ABDOMINAL PAIN HPI: HPI: Patient is a 54 year old male who presents with vague complaints of fever. Patient reports that he has had chronic abdominal pain now for couple of months. This is bilateral and in the upper margins of his abdomen. He reports that it is intermittent in nature and now although he does have it today it is not as bad as it has been. He complains today of pain in the left lower quadrant which is new since yesterday. He reports that this is persistent, aching in nature and nonradiating. It is associated with a decrease in appetite but no diarrhea, melena or hematochezia. Patient also reports no nausea or vomiting. He does report some chronic dysuria that is unchanged. He denied any change in back pain. Today and yesterday the patient stated he ran a temperature as high as 101.5. Left upper quadrant patient decided to come in today when the pain worsened. Patient denies any cough, shortness of breath, chest pain, change in smell or taste, sore throat but does complain of some mild rhinorrhea. Review of Systems: Review of Systems: Constitutional: See HPI. [] Eyes: Denies change in visual acuity. [] HENT: See HPI. [] Respiratory: Denies cough or shortness of breath. [] Cardiovascular: Denies chest pain or edema. [] GI: See HPI. [] : Denies dysuria. [] Musculoskeletal: Denies back pain or joint pain. [] Integument: Denies rash. [] Neurologic: Denies headache, focal weakness or sensory changes. [] Endocrine: Denies polyuria or polydipsia. [] Lymphatic: Denies swollen glands. [] Psychiatric: Denies depression or anxiety. [] Heart Score: Risk Factors: Risk Factors: DM, Current or recent (<one month) smoker, HTN, HLP, family history of CAD, obesity. Risk Scores: Score 0 - 3: 2.5% MACE over next 6 weeks - Discharge Home Score 4 - 6: 20.3% MACE over next 6 weeks - Admit for Clinical Observation Score 7 - 10: 72.7% MACE over next 6 weeks - Early Invasive Strategies Allergies: Allergies: Allergies Coded Allergies Type Severity Reaction Last Updated Verified No Known Drug Allergies 04/07/20 No Physical Exam: PE: Constitutional: Well developed, well nourished, no acute distress, morbidly obese, non-toxic appearance. [] HENT: Normocephalic, atraumatic, bilateral external ears normal, TMs bilaterally without erythema or exudative changes, oropharynx dry, no oral exudates, nose normal. [] Eyes: PERRLA, EOMI, conjunctiva normal, no discharge. [] Neck: Normal range of motion, no tenderness, supple, no stridor. [] Cardiovascular: Regular rate and rhythm, no S3 or S4, no shift of PMI, pulses 1 out of 2 in the dorsalis pedis bilaterally [] Lungs & Thorax: Bilateral breath sounds clear to auscultation [] Abdomen: Bowel sounds normal, soft, tenderness in the left lower quadrant with questionable rebound, no guarding no masses, mild distention, no bruits. [] Skin: Warm, dry, no erythema, no rash. [] Back: No tenderness, no CVA tenderness. [] Extremities: No tenderness, no cyanosis, no clubbing, ROM intact, symmetric pitting edema 2 mm [] Neurologic: Alert and oriented X 3, normal motor function, normal sensory function, no focal deficits noted. [] Psychologic: Affect normal, judgement normal, mood normal. [] EKG: EKG: [] Radiology/Procedures: Radiology/Procedures: [] Course & Med Decision Making: Course & Med Decision Making Pertinent Labs and Imaging studies reviewed. (See chart for details) [id number]-patient was seen and examined. I discussed with him the results of the testing. As I suspect he does have diverticulitis but also has cystitis. In addition he does have some sirs criteria and I am uncomfortable to send him home. I like to see him improving for at least 8 to 10 hours. I discussed admission and he is amenable. [] Kacy Disclaimer: Kacy Disclaimer: This electronic medical record was generated, in whole or in part, using a voice recognition dictation system. Departure Departure Impression: Primary Impression: Acute diverticulitis Additional Impressions: Acute cystitis without hematuria Left lower quadrant abdominal pain SIRS (systemic inflammatory response syndrome) Disposition: ADMITTED INPATIENT Condition: GOOD Referrals: NO PCP (PCP) Justicifation of Admission Dx: Justifications for Admission: Justification of Admission Dx: Yes Sepsis: Infection Angina: [facility] NIECY ROCHA MD Apr 30, 2020 21:09
[2020-04-30 21:14] LABS: BASO % 0 % (0-3); EOS # 0.1 x10^3/uL (0.0-0.7); EOS % 1 % (0-3); HEMATOCRIT 36.5 % (39.0-53.0); HEMOGLOBIN 12.4 g/dL (13.0-17.5); LYMPH # 1.2 x10^3/uL (1.0-4.8); LYMPH % 9 % (24-48); MEAN CORPUSCULAR HEMOGLOBIN 33 pg (25-35); MEAN CORPUSCULAR HGB CONC 34 g/dL (31-37); MEAN CORPUSCULAR VOLUME 95 fL (79-100); MONO # 1.4 x10^3/uL (0.0-1.1); MONO % 11 % (0-9); NEUT # 10.2 x10^3/uL (1.8-7.7); NEUT % 79 % (31-73); PLATELET COUNT 115 x10^3/uL (140-400); RED BLOOD COUNT 3.83 x10^6/uL (4.30-5.70); RED CELL DISTRIBUTION WIDTH 15.3 % (11.5-14.5); WHITE BLOOD COUNT 12.8 x10^3/uL (4.0-11.0)
[2020-04-30] MEDS ORDERED: KETOROLAC 30 MG/ML VIAL. IVP ONE (21:15)
[2020-04-30] MEDS ORDERED: METOCLOPRAMIDE HCL 10 MG/2 ML VIAL. IVP ONE (21:15)
[2020-04-30] MEDS ORDERED: FAMOTIDINE 20 MG TABLET. PO ONE ×2 (21:15)
[2020-04-30] MEDS ORDERED: IV NORMAL SALINE 1000ML BAG 1,000 ML IV ONE (21:15)
[2020-04-30] MEDS ORDERED: MAG HYDROX/ALUMINUM HYD/SIMETH 30 ML ORAL.SUSP PO ONE (21:15)
[2020-04-30 21:16] LABS: BILIRUBIN,URINE SMALL (NEG); CLARITY,URINE CLOUDY; COLOR,URINE ORANGE; NITRITE,URINE POSITIVE (NEG); PH,URINE 5.5 (<5.0-8.0); PROTEIN,URINE 30 mg/dL (NEG-TRACE)
[2020-04-30 21:22] LABS: BACTERIA,URINE MANY /HPF (0-FEW); RBC,URINE 0 /HPF (0-2); SQUAMOUS EPITHELIAL CELL,UR OCC /LPF; WBC,URINE TNTC /HPF (0-4)
[2020-04-30 21:22] LABS: PROTHROMBIN TIME PATIENT 15.5 SEC (11.7-14.0)
--- NOTE | 2020-04-30 21:32 | RAD ---
Exam: Chest one view INDICATION: Fever TECHNIQUE: Frontal view of the chest Comparisons: 04/07/2020 FINDINGS: The cardiomediastinal silhouette and pulmonary vessels are within normal limits. The lung and pleural spaces are clear. IMPRESSION: No acute cardiopulmonary process. Electronically signed by: Kat Iverson MD (04/30/2020 9:28 PM) [id number]
[2020-04-30 21:39] LABS: CALCIUM 8.6 mg/dL (8.5-10.1); CREATININE 0.8 mg/dL (0.7-1.3); GFR 101.5; POTASSIUM 3.6 mmol/L (3.5-5.1)
[2020-04-30 21:44] LABS: ALBUMIN 2.5 g/dL (3.4-5.0); ALBUMIN/GLOBULIN RATIO 0.6 (1.0-1.7); TOTAL BILIRUBIN 1.8 mg/dL (0.2-1.0); TOTAL PROTEIN 6.9 g/dL (6.4-8.2)
[2020-04-30] MEDS ORDERED: CONTRAST GIVEN. MC PRN (22:00)
[2020-04-30] MEDS ORDERED: IOHEXOL 300 MG/ML 100ML VIAL. IV ONE (22:00)
--- NOTE | 2020-04-30 22:40 | RAD ---
Exam: CT of abdomen and pelvis with contrast INDICATION: Left lower quadrant abdominal pain with fever TECHNIQUE: Sequential axial images through the abdomen and pelvis obtained following the administration of 75 mL of Omni 300 IV contrast. Sagittal and coronal reformatted images were reconstructed from the axial data and reviewed. Comparisons: None FINDINGS: Heart size is normal. No pericardial visualized lung bases are clear. No pleural effusion. Cirrhotic morphology of the liver. Spleen is enlarged measuring 17.3 cm in long axis. Pancreas and adrenals are unremarkable. Gallbladder is distended. No pericholecystic inflammatory changes are identified. Kidneys demonstrate symmetric enhancement. No ureteral calculi. There is a nonobstructing 4 mm calculus at the upper pole of the left kidney. Bladder is decompressed not well evaluated. Prostate is not enlarged. Diverticulosis is noted in the sigmoid colon with mild adjacent fat stranding noted surrounding the descending colon. Additionally there is mucosal hyperenhancement of the duodenum. Bartley of the large and small bowel are unremarkable. No free abdominal air or fluid. No obstruction. Abdominal aorta has a normal course and caliber. Abdominal vasculature is patent. No enlarged intra-abdominal lymph nodes are identified. No suspicious osseous lesions or acute fractures. IMPRESSION: 1. Findings likely related to mild diverticulitis at the descending colon. No evidence for perforation or adjacent abscess. 2. There is mucosal hyperenhancement at the duodenum may relate to enteritis. 3. Cirrhotic morphology of the liver with secondary sequela of portal hypertension including splenomegaly. Exposure: One or more of the following in the visualized dose reduction techniques were utilized for this examination: 1. Automated exposure control 2. Adjustment of the MA and/or KV according to patient size 3. Use of iterative of reconstructive technique Electronically signed by: Kat Iverson MD (04/30/2020 10:37 PM) [id number]
[2020-04-30] MEDS ORDERED: PIPERACILLIN/TAZOBACTAM 4.5 GM in IV NORMAL SALINE 100ML 100 ML IV ONE (23:15)
[2020-04-30] MEDS ORDERED: PIPERACILLIN/TAZOBACTAM 3.375 GM in IV NORMAL SALINE 50ML 50 ML IV ONE (23:30)
[2020-04-30] MEDS ORDERED: fentaNYL PF VIAL 100 MCG/2 ML VIAL IV PRN (23:30)
[2020-05-01] MEDS ORDERED: PRAV40TA2 PO (03:33)
[2020-05-01] MEDS ORDERED: LISI-130 PO (03:33)
[2020-05-01] MEDS ORDERED: CARV12.511 PO (03:33)
[2020-05-01 03:34] VITALS: BP 145/70
[2020-05-01 07:56] VITALS: BP 154/64
[2020-05-01] MEDS ORDERED: LISINOPRIL 20 MG TABLET PO SCH (09:00)
[2020-05-01] MEDS ORDERED: PIPERACILLIN/TAZOBACTAM 4.5 GM in IV NORMAL SALINE 100ML 100 ML IV ONE (09:00)
[2020-05-01] MEDS ORDERED: POTASSIUM CHLORIDE 10 MEQ TABLET.ER. PO SCH (09:00)
[2020-05-01] MEDS ORDERED: CARVEDILOL 12.5 MG TABLET. PO SCH (09:15)
[2020-05-01] MEDS ORDERED: POLYETHYLENE GLYCOL 3350 17 GM PACKET. PO ONE (09:30)
[2020-05-01] MEDS ORDERED: DOCUSATE SODIUM 100 MG CAPSULE. PO PRN (09:30)
[2020-05-01] MEDS ORDERED: CIPR500T94 PO (09:30)
--- NOTE | 2020-05-01 09:37 | PDOC1 ---
History and Physical Date of Admission Date of Admission DATE: 05/01/20 TIME: 09:31 Identification/Chief Complaint Chief Complaint abd pain Source Source: Chart review, Patient History of Present Illness History of Present Illness MR. Preet Cage, is a 54 year old male ad [facility] with tachycardia and fever. He has abdominal pain now for couple of months, has diet moddded to try to improve possible ramírez. upper pain was intermittent and has been improved lately last night, admit with acute lower abd pain, left lower quadrant, acute and sharp, no diarrhea, but some hard stool, and less stool. he has changed his diet to no fast food, and now orders fruit and toast when he goes to the [employer] restaurant Patient also reports no nausea or vomiting. He does report some chronic dysuria that is unchanged. T 101.5. 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, has 3 grandkids, Past Medical History Cardiovascular: CAD, CHF, HTN Infectious disease: Other Family History Family History: High Cholestrol, Hypertension Social History Smoke: No ALCOHOL: none Drugs: None Current Problem List Problem List Problems Medical Problems: (1) Acute cystitis without hematuria Status: Acute (2) Left lower quadrant abdominal pain Status: Acute Current Medications Current Medications Current Medications Sodium Chloride 1,000 ml @ 1,000 mls/hr 1X ONCE IV Last administered on 04/30/20at 21:30; Start 04/30/20 at 21:15; Stop 04/30/20 at 22:14; Status DC Al Hydroxide/Mg Hydroxide (Mylanta Plus Xs) 30 ml 1X ONCE PO Last administered on 04/30/20at 21:31; Start 04/30/20 at 21:15; Stop 04/30/20 at 21:16; Status DC Famotidine (Pepcid) 20 mg 1X ONCE PO ; Start 04/30/20 at 21:15; Stop 04/30/20 at 21:16; Status UNV Metoclopramide HCl (Reglan Vial) 10 mg 1X ONCE IVP Last administered on 04/30/20at 21:30; Start 04/30/20 at 21:15; Stop 04/30/20 at 21:16; Status DC Ketorolac Tromethamine (Toradol 30mg Vial) 30 mg 1X ONCE IVP Last administered on 04/30/20at 21:30; Start 04/30/20 at 21:15; Stop 04/30/20 at 21:16; Status DC Famotidine (Pepcid) 20 mg 1X ONCE PO Last administered on 04/30/20at 21:31; Start 04/30/20 at 21:15; Stop 04/30/20 at 21:16; Status DC Iohexol (Omnipaque 300 Mg/ml) 75 ml 1X ONCE IV Last administered on 04/30/20at 22:10; Start 04/30/20 at 22:00; Stop 04/30/20 at 22:01; Status DC Info (CONTRAST GIVEN -- Rx MONITORING) 1 each PRN DAILY PRN MC SEE COMMENTS; Start 04/30/20 at 22:00; Stop 05/02/20 at 21:59 Piperacillin Sod/ Tazobactam Sod 4.5 gm/Sodium Chloride 100 ml @ 200 mls/hr 1X ONCE IV Last administered on 05/01/20at 00:24; Start 04/30/20 at 23:15; Stop 04/30/20 at 23:44; Status DC Fentanyl Citrate (Fentanyl 2ml Vial) 50 mcg PRN Q1HR PRN IV PAIN Last administered on 05/01/20at 00:22; Start 04/30/20 at 23:30; Stop 05/01/20 at 23:29 Piperacillin Sod/ Tazobactam Sod 3.375 gm/Sodium Chloride 50 ml @ 100 mls/hr 1X ONCE IV Last administered on 05/01/20at 06:20; Start 04/30/20 at 23:30; Stop 04/30/20 at 23:59; Status DC Carvedilol (Coreg) 12.5 mg BIDWMEALS PO ; Start 05/01/20 at 09:15 Furosemide (Lasix) 20 mg TIDAC PO ; Start 05/01/20 at 11:30 Lisinopril (Prinivil) 40 mg DAILY PO ; Start 05/01/20 at 09:00 Potassium Chloride (Klor-Con) 10 meq DAILY PO ; Start 05/01/20 at 09:00 Atorvastatin Calcium (Lipitor) 10 mg QHS PO ; Start 05/01/20 at 21:00 Piperacillin Sod/ Tazobactam Sod 4.5 gm/Sodium Chloride 100 ml @ 200 mls/hr 1X ONCE IV ; Start 05/01/20 at 09:00; Stop 05/01/20 at 09:29 Polyethylene Glycol (miraLAX PACKET) 17 gm 1X ONCE PO ; Start 05/01/20 at 09:30; Stop 05/01/20 at 09:31; Status UNV Docusate Sodium (Colace) 100 mg PRN DAILY PRN PO HARD STOOLS; Start 05/01/20 at 09:30; Status UNV Active Scripts Active Cipro (Ciprofloxacin Hcl) 500 Mg Tablet 1 Tab PO BID 10 Days Reported Pravastatin Sodium 40 Mg Tablet 1 Tab PO QHS Carvedilol (Carvedilol) 12.5 Mg Tablet 12.5 Mg PO BIDWMEALS Lisinopril 40 Mg Tablet 1 Tab PO DAILY Klor-Con 10 (Potassium Chloride) 10 Meq Tablet.er 10 Meq PO DAILY Furosemide 20 Mg Tablet 20 Mg PO TIDAC Allergies Allergies: Coded Allergies: No Known Drug Allergies (Unverified , 04/07/20) ROS General: YES: Fatigue; No: Chills, Night Sweats, Malaise, Appetite, Other PSYCHOLOGICAL ROS: No: Anxiety, Behavioral Disorder, Concentration difficultie, Decreased libido, Depression, Disorientation, Hallucinations, Hostility, Irritablity, Memory difficulties, Mood Swings, Obsessive thoughts, Physical abuse, Sexual abuse, Sleep disturbances, Suicidal ideation, Other Eyes: No Blurry vision, No Decreased vision, No Double vision, No Dry eyes, No Excessive tearing, No Eye Pain, No Itchy Eyes, No Loss of vision, No Photophobia, No Scotomata, No Uses contacts, No Uses glasses, No Other HEENT: No: Heacaches, Visual Changes, Hearing change, Nasal congestion, Nasal discharge, Oral lesions, Sinus pain, Sore Throat, Epistaxis, Sneezing, Snoring, Tinnitus, Vertigo, Vocal changes, Other Respiratory: No: Cough, Hemoptysis, Orthopnea, Pleuritic Pain, Shortness of breath, SOB with excertion, Sputum Changes, Stridor, Tachypnea, Wheezing, Other Cardiovascular: No Chest Pain, No Palpitations, No Orthopnea, No Paroxysmal Noc. Dyspnea, No Edema, No Lt Headedness, No Other Gastrointestinal: Yes Nausea, Yes Abdominal Pain, Yes Constipation Genitourinary: YES Flank Pain, YES Other; No Dysuria, No Frequency, No Incontinence, No Hematuria, No Retention, No Discharge, No Urgency, No Pain, No , No , No , No , No , No , No Musculoskeletal: No Gait Disturbance, No Joint Pain, No Joint Stiffness, No Joint Swelling, No Muscle Pain, No Muscular Weakness, No Pain In:, No Swelling In:, No Other Neurological: No Behavorial Changes, No Bowel/Bladder ControlChng, No Confusion, No Dizziness, No Gait Disturbance, No Headaches, No Impaired Coord/balance, No Memory Loss, No Numbness/Tingling, No Seizures, No Speech Problems, No Tremors, No Visual Changes, No Weakness, No Other Skin: No Dry Skin, No Eczema, No Hair Changes, No Lumps, No Mole Changes, No Mottling, No Nail Changes, No Pruritus, No Rash, No Skin Lesion Changes, No Other, No Acne Physical Exam General: Alert, Oriented X3, No acute distress HEENT: Atraumatic, Mucous membr. moist/pink Lungs: Clear to auscultation, Normal air movement Heart: S1S2, no gallops Extremities: No cyanosis, Other (chronic LE edema and lymphedema, elephantitis legs, ) Neuro: Normal speech, Normal tone Psych/Mental Status: Mental status NL, Mood NL Vitals Vitals Vital Signs Date Time Temp Pulse Resp B/P (MAP) Pulse Ox O2 Delivery O2 Flow Rate FiO2 05/01/20 07:56 99.1 82 18 154/64 (94) 93 Room Air 99.1 Labs Labs Laboratory Tests Test 04/30/20 20:30 04/30/20 21:00 05/01/20 02:04 Urine Collection Type Unknown Urine Color [place] Urine Clarity Cloudy Urine pH 5.5 (<5.0-8.0) Urine Specific [place] 1.020 (1.000-1.030) Urine Protein 30 mg/dL (NEG-TRACE) Urine Glucose (UA) Negative mg/dL (NEG) Urine Ketones (Stick) Trace mg/dL (NEG) Urine Blood Trace (NEG) Urine Nitrite Positive (NEG) Urine Bilirubin Small (NEG) Urine Urobilinogen Dipstick 1.0 mg/dL (0.2 mg/dL) Urine Leukocyte Esterase Large (NEG) Urine RBC 0 /HPF (0-2) Urine WBC Tntc /HPF (0-4) Urine Squamous Epithelial Cells Occ /LPF Urine Bacteria Many /HPF (0-FEW) White Blood Count 12.8 x10^3/uL (4.0-11.0) Red Blood Count 3.83 x10^6/uL (4.30-5.70) Hemoglobin 12.4 g/dL (13.0-17.5) Hematocrit 36.5 % (39.0-53.0) Mean Corpuscular Volume 95 fL (79-100) Mean Corpuscular Hemoglobin 33 pg (25-35) Mean Corpuscular Hemoglobin Concent 34 g/dL (31-37) Red Cell Distribution Width 15.3 % (11.5-14.5) Platelet Count 115 x10^3/uL (140-400) Neutrophils (%) (Auto) 79 % (31-73) Lymphocytes (%) (Auto) 9 % (24-48) Monocytes (%) (Auto) 11 % (0-9) Eosinophils (%) (Auto) 1 % (0-3) Basophils (%) (Auto) 0 % (0-3) Neutrophils # (Auto) 10.2 x10^3/uL (1.8-7.7) Lymphocytes # (Auto) 1.2 x10^3/uL (1.0-4.8) Monocytes # (Auto) 1.4 x10^3/uL (0.0-1.1) Eosinophils # (Auto) 0.1 x10^3/uL (0.0-0.7) Basophils # (Auto) 0.0 x10^3/uL (0.0-0.2) Prothrombin Time 15.5 SEC (11.7-14.0) Prothromb Time International Ratio 1.3 (0.8-1.1) Sodium Level 133 mmol/L (136-145) Potassium Level 3.6 mmol/L (3.5-5.1) Chloride Level 101 mmol/L (98-107) Carbon Dioxide Level 24 mmol/L (21-32) Anion Gap 8 (6-14) Blood Urea Nitrogen 11 mg/dL (8-26) Creatinine 0.8 mg/dL (0.7-1.3) Estimated GFR (Cockcroft-Gault) 101.5 BUN/Creatinine Ratio 14 (6-20) Glucose Level 132 mg/dL (70-99) Lactic Acid Level 2.3 mmol/L (0.4-2.0) 1.7 mmol/L (0.4-2.0) Calcium Level 8.6 mg/dL (8.5-10.1) Total Bilirubin 1.8 mg/dL (0.2-1.0) Aspartate Amino Transf (AST/SGOT) 47 U/L (15-37) Alanine Aminotransferase (ALT/SGPT) 31 U/L (16-63) Alkaline Phosphatase 102 U/L (46-116) Total Protein 6.9 g/dL (6.4-8.2) Albumin 2.5 g/dL (3.4-5.0) Albumin/Globulin Ratio 0.6 (1.0-1.7) Laboratory Tests Test 04/30/20 20:30 04/30/20 21:00 05/01/20 02:04 Urine Collection Type Unknown Urine Color [place] Urine Clarity Cloudy Urine pH 5.5 (<5.0-8.0) Urine Specific [place] 1.020 (1.000-1.030) Urine Protein 30 mg/dL (NEG-TRACE) Urine Glucose (UA) Negative mg/dL (NEG) Urine Ketones (Stick) Trace mg/dL (NEG) Urine Blood Trace (NEG) Urine Nitrite Positive (NEG) Urine Bilirubin Small (NEG) Urine Urobilinogen Dipstick 1.0 mg/dL (0.2 mg/dL) Urine Leukocyte Esterase Large (NEG) Urine RBC 0 /HPF (0-2) Urine WBC Tntc /HPF (0-4) Urine Squamous Epithelial Cells Occ /LPF Urine Bacteria Many /HPF (0-FEW) White Blood Count 12.8 x10^3/uL (4.0-11.0) Red Blood Count 3.83 x10^6/uL (4.30-5.70) Hemoglobin 12.4 g/dL (13.0-17.5) Hematocrit 36.5 % (39.0-53.0) Mean Corpuscular Volume 95 fL (79-100) Mean Corpuscular Hemoglobin 33 pg (25-35) Mean Corpuscular Hemoglobin Concent 34 g/dL (31-37) Red Cell Distribution Width 15.3 % (11.5-14.5) Platelet Count 115 x10^3/uL (140-400) Neutrophils (%) (Auto) 79 % (31-73) Lymphocytes (%) (Auto) 9 % (24-48) Monocytes (%) (Auto) 11 % (0-9) Eosinophils (%) (Auto) 1 % (0-3) Basophils (%) (Auto) 0 % (0-3) Neutrophils # (Auto) 10.2 x10^3/uL (1.8-7.7) Lymphocytes # (Auto) 1.2 x10^3/uL (1.0-4.8) Monocytes # (Auto) 1.4 x10^3/uL (0.0-1.1) Eosinophils # (Auto) 0.1 x10^3/uL (0.0-0.7) Basophils # (Auto) 0.0 x10^3/uL (0.0-0.2) Prothrombin Time 15.5 SEC (11.7-14.0) Prothromb Time International Ratio 1.3 (0.8-1.1) Sodium Level 133 mmol/L (136-145) Potassium Level 3.6 mmol/L (3.5-5.1) Chloride Level 101 mmol/L (98-107) Carbon Dioxide Level 24 mmol/L (21-32) Anion Gap 8 (6-14) Blood Urea Nitrogen 11 mg/dL (8-26) Creatinine 0.8 mg/dL (0.7-1.3) Estimated GFR (Cockcroft-Gault) 101.5 BUN/Creatinine Ratio 14 (6-20) Glucose Level 132 mg/dL (70-99) Lactic Acid Level 2.3 mmol/L (0.4-2.0) 1.7 mmol/L (0.4-2.0) Calcium Level 8.6 mg/dL (8.5-10.1) Total Bilirubin 1.8 mg/dL (0.2-1.0) Aspartate Amino Transf (AST/SGOT) 47 U/L (15-37) Alanine Aminotransferase (ALT/SGPT) 31 U/L (16-63) Alkaline Phosphatase 102 U/L (46-116) Total Protein 6.9 g/dL (6.4-8.2) Albumin 2.5 g/dL (3.4-5.0) Albumin/Globulin Ratio 0.6 (1.0-1.7) VTE Prophylaxis Ordered VTE Prophylaxis Devices: No VTE Pharmacological Prophylaxi: Yes Assessment/Plan Assessment/Plan tachycardia, fever, abd pain, UTI, sepsis admit OBS Zosyn x2 given some mild diverticulitis on CT, also constipated, miralax and colace given for DC morbid obesity, BMI 56 htn dm2 lipids he has lost 80 pounds in a year, trying to improve PATIENT was PUI, swabbed for COVID-19 and pending at the time of this eval. CYNDY EVANGELISTA MD May 01, 2020 09:36
[2020-05-01] MEDS ORDERED: FUROSEMIDE 20 MG TABLET PO SCH (11:30)
--- NOTE | 2020-05-01 11:35 | NUR ---
Pt discharged to home with . Discharge teaching completed.
[2020-05-01 11:42] VITALS: BP 147/62
[2020-05-01] MEDS ORDERED: ATORVASTATIN CALCIUM 10 MG TABLET. PO SCH (21:00)
--- NOTE | 2020-05-02 17:16 | NUR ---
IP: Notified pt of negative COVID results. Pt verbalized understanding.
== END 2020-05-01 11:35 | disposition home or self-care (01) ==
LOC: ER 19:57 → 6 SOUTH 05-01 00:22
PROVIDERS: ADMIT Family Medicine; ATTEND Family Medicine
DX: A41.9 Sepsis, unspecified organism (principal); K57.92 Diverticulitis of intestine, part unspecified, without perforation or abscess without bleeding; N30.00 Acute cystitis without hematuria; I11.0 Hypertensive heart disease with heart failure; I50.9 Heart failure, unspecified; I25.10 Atherosclerotic heart disease of native coronary artery without angina pectoris; E66.01 Morbid (severe) obesity due to excess calories; E11.9 Type 2 diabetes mellitus without complications; Z20.828 Contact with and (suspected) exposure to other viral communicable diseases; Z68.43 Body mass index [BMI] 50.0-59.9, adult; Z88.1 Allergy status to other antibiotic agents
CPT/HCPCS: 36415; 71045; 74177; 80053; 81001; 83605; 85025; 85610; 87040; 87086; 96361; 96365; 96366; 96375; 99285; G0378; J1885; J2543; J2765; J3010; J7030; Q9967; U0003; G0379

== ENCOUNTER 2020-09-25 11:18 | Emergency (ER) | payer SELFPAY ==
[~2020-09-25] VITALS: Ht 182.9 cm; Wt 216.0 kg
[~2020-09-25 11:18] MED LIST changes: +CARV12.511 PO; +CIPR500T94 PO; +LISI-130 PO; +PRAV40TA2 PO
[2020-09-25 11:40] VITALS: BP 235/116
--- NOTE | 2020-09-25 12:06 | RAD ---
EXAM: Right knee, 4 views. HISTORY: Pain. COMPARISON: None. FINDINGS: 4 views of the right knee are obtained. There is occipital spurring. There is medial and la teral compartment chondrocalcinosis. There is no significant joint effusion. There is no fracture or dislocation. IMPRESSION: 1. Mild tricompartmental osteoarthritis of the right knee with chondrocalcinosis. 2. No acute osseous finding. Electronically signed by: Traci Silveira MD (09/25/2020 12:04 PM) [id number]
[2020-09-25] MEDS ORDERED: TRAM50TA PO (12:32)
--- NOTE | 2020-09-25 12:32 | PHYS DOC ---
Past Medical History Past Medical History: CAD, CHF, MRSA Additional Past Medical Histor: NUMEROUS ORTHOPEDIC SURGERIES Past Surgical History: Other Additional Past Surgical Histo: MOST SURGICAL HX IS WITH [facility] Smoking Status: Never Smoker Alcohol Use: None Drug Use: None General Adult EDM: Chief Complaint: LOWER EXT PAIN HPI: HPI: Patient is a 55 year old morbidly obese male patient with history of hypertension, CAD, CHF, who presents to the ED today complaining of 7 out of 10 sharp right posterior and slightly anterior knee pain that began yesterday worse on ambulation. Patient states he feels like his knee is going to give out. Patient denies any injuries. States the pain is worse on weightbearing. Denies anything specifically relieving the pain. Describes the pain as sharp and intermittent. Review of Systems: Review of Systems: Constitutional: Denies fever or chills. []] Musculoskeletal: Reports right knee pain Integument: Denies rash. [] Neurologic: Denies headache, focal weakness or sensory changes. [] Psychiatric: Denies depression or anxiety. [] Heart Score: Risk Factors: Risk Factors: DM, Current or recent (<one month) smoker, HTN, HLP, family history of CAD, obesity. Risk Scores: Score 0 - 3: 2.5% MACE over next 6 weeks - Discharge Home Score 4 - 6: 20.3% MACE over next 6 weeks - Admit for Clinical Observation Score 7 - 10: 72.7% MACE over next 6 weeks - Early Invasive Strategies Allergies: Allergies: Allergies Coded Allergies Type Severity Reaction Last Updated Verified No Known Drug Allergies 04/07/20 No Physical Exam: PE: Constitutional: Well developed, well nourished, no acute distress, non-toxic appearance. [] Skin: Warm, dry, no erythema, no rash. [] Back: No tenderness, no CVA tenderness. [] Extremities: Morbidly obese patient, right knee with no obvious deformity. Limited range of motion to the right knee due to obesity. + Right pedal pulse. Cap refill less than 2 seconds of right lower extremity. Sensation intact to the right lower extremity Neurologic: Alert and oriented X 3, normal motor function, normal sensory function, no focal deficits noted. [] Psychologic: Affect normal, judgement normal, mood normal. [] Current Patient Data: Vital Signs: Vital Signs Date Time Temp Pulse Resp B/P (MAP) Pulse Ox O2 Delivery O2 Flow Rate FiO2 09/25/20 11:40 98.5 69 16 235/116 (155) 94 Room Air 98.5 EKG: EKG: [] Radiology/Procedures: Radiology/Procedures: []PROCEDURE: KNEE RIGHT 4V EXAM: Right knee, 4 views. HISTORY: Pain. COMPARISON: None. FINDINGS: 4 views of the right knee are obtained. There is occipital spurring. There is medial and lateral compartment chondrocalcinosis. There is no significant joint effusion. There is no fracture or dislocation. IMPRESSION: 1. Mild tricompartmental osteoarthritis of the right knee with chondrocalcinosis. 2. No acute osseous finding. Electronically signed by: Traci Silveira MD (09/25/2020 12:04 PM) [id number] DICTATED and SIGNED BY: TRACI SILVEIRA MD DATE: 09/25/20 [id number] 0 Course & Med Decision Making: Course & Med Decision Making Pertinent Labs and Imaging studies reviewed. (See chart for details) This is a 55-year-old male patient presenting to the ED today with right knee pain since yesterday, no known injury. Patient is morbidly obese. Right knee x-rays interpreted by radiologist were negative for any acute findings, noted for mild tricompartmental osteoarthritis of the right knee with chondrocalcinosis. Discharge to home. Follow-up with Ortho in 1 week. Kacy Disclaimer: Kacy Disclaimer: This electronic medical record was generated, in whole or in part, using a voice recognition dictation system. Departure Departure Impression: Primary Impression: Degenerative joint disease of knee, right Qualified Codes: M17.11 - Unilateral primary osteoarthritis, right knee Additional Impression: Knee pain, right Qualified Codes: M25.561 - Pain in right knee Disposition: 01 DC HOME SELF CARE/HOMELESS Condition: STABLE Referrals: NON,STAFF (PCP) AMI MCNAIR MD follow up in one week Patient Instructions: Arthritis, Degenerative-Brief, Knee Pain Additional Instructions: You were seen for right knee pain, your right knee x-rays were negative for any acute findings.You have mild tricompartmental osteoarthritis of the right knee with chondrocalcinosis. Please follow up with your Orthopedic doctor in one week Scripts Tramadol Hcl (TRAMADOL HCL) 50 Mg Tablet 50 MG PO Q6HRS PRN for PAIN, #20 TAB Prov: TANIKA MONTES APRN 09/25/20 TANIKA MONTES APRN Sep 25, 2020 12:32
== END 2020-09-25 12:55 | disposition home or self-care (01) ==
LOC: ER 11:18
DX: M17.11 Unilateral primary osteoarthritis, right knee (principal); M25.561 Pain in right knee; I11.0 Hypertensive heart disease with heart failure; R20.2 Paresthesia of skin; I50.9 Heart failure, unspecified; E66.01 Morbid (severe) obesity due to excess calories; Z68.44 Body mass index [BMI] 60.0-69.9, adult; Z86.14 Personal history of Methicillin resistant Staphylococcus aureus infection; Z98.890 Other specified postprocedural states
CPT/HCPCS: 73564; 99283

== ENCOUNTER 2021-07-10 13:03 | Inpatient (IN) | payer SELFPAY ==
[~2021-07-10] VITALS: Ht 188 cm; Wt 212.4 kg
[~2021-07-10 13:03] MED LIST changes: -LISI-334 PO; +LISI20TA18 PO; +TRAM50TA PO
[2021-07-10] MEDS ORDERED: NALOXONE 2 MG/2 ML DISP.SYRIN. IV ONE (13:15)
[2021-07-10] MEDS ORDERED: IV NORMAL SALINE 1000ML BAG 1,000 ML IV ONE ×3 (13:15→16:00)
--- NOTE | 2021-07-10 13:23 | RAD ---
CT STROKE HEAD W/O History: Reason: AMS / Spl. Instructions: / History: Comparison: None. Technique: Noncontrast CT imaging was performed of the head. Exposure: One or more of the following individualized dose reduction techniques were utilized for thi s examination: 1. Automated exposure control 2. Adjustment of the mA and/or kV according to patient size 3. Use of iterative reconstruction technique. Findings: No intracranial hemorrhage. No mass effect. No hydrocephalus. Mild foci of decreased aeration within the hemispheric white matter, most often due to chronic microv ascular ischemia. Imaged orbits are unremarkable. Imaged paranasal sinuses and mastoid air cells are clear. No acute ca lvarial fracture. Impression: 1. No acute intracranial abnormality. 2. Mild nonspecific white matter changes, most often due to chronic microvascular ischemia. FOR INTERNAL CODING PURPOSES Critical result: Findings discussed with Dr. Duncan at 07/10/2021 1:17 PM. RESULT CODE: (C) Electronically signed by: Christofer Vieyra DO (07/10/2021 1:20 PM) [id number]
[2021-07-10 13:37] LABS: BASO % 0 % (0-3); EOS % 0 % (0-3); HEMATOCRIT 38.1 % (39.0-53.0); LYMPH # 0.8 x10^3/uL (1.0-4.8); LYMPH % 8 % (24-48); MEAN CORPUSCULAR HEMOGLOBIN 34 pg (25-35); MEAN CORPUSCULAR HGB CONC 34 g/dL (31-37); MEAN CORPUSCULAR VOLUME 98 fL (79-100); MONO # 0.8 x10^3/uL (0.0-1.1); MONO % 8 % (0-9); NEUT % 84 % (31-73); PLATELET COUNT 66 x10^3/uL (140-400); RED CELL DISTRIBUTION WIDTH 16.6 % (11.5-14.5); WHITE BLOOD COUNT 10.7 x10^3/uL (4.0-11.0)
[2021-07-10 13:47] LABS: PROTHROMBIN TIME PATIENT 17.1 SEC (11.7-14.0)
[2021-07-10 13:54] LABS: CALCIUM 8.7 mg/dL (8.5-10.1); CREATININE 2.8 mg/dL (0.7-1.3); GFR 23.8; POTASSIUM 4.3 mmol/L (3.5-5.1)
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
[2021-07-10 14:06] LABS: ALBUMIN 2.2 g/dL (3.4-5.0); ALBUMIN/GLOBULIN RATIO 0.5 (1.0-1.7); MAGNESIUM 1.8 mg/dL (1.8-2.4); TOTAL BILIRUBIN 1.9 mg/dL (0.2-1.0); TOTAL PROTEIN 6.3 g/dL (6.4-8.2)
--- NOTE | 2021-07-10 14:10 | RAD ---
Single view of the chest. 07/10/2021 1:49 PM Indication: Reason: Altered mental status: Comparison: Chest radiograph April 30, 2020 Findings: There is diffuse interstitial coarsening. No pneumothorax or pleural effusion is seen. Poss ible left basilar infiltrate or atelectasis is seen. Heart size is within normal limits given techniq ue. No acute osseous changes are seen. IMPRESSION: Diffuse interstitial thickening with areas of left basilar consolidation or atelectasis. Reflect edema and low lung volumes versus an atypical or viral infectious process. Electronically signed by: Vinayak Wagner MD (07/10/2021 2:08 PM) [id number]
[2021-07-10] MEDS ORDERED: ONDANSETRON PF 4 MG/2 ML VIAL. IVP PRN ×2 (15:15→16:00)
--- NOTE | 2021-07-10 15:43 | PDOC2 ---
JEFFREY MCKENNA FINE [employer] MODEL 07/10/21 1543: CARDIAC CONSULT DATE OF CONSULT Date of Consult DATE: 07/10/21 TIME: 15:29 REASON FOR CONSULT Reason for Consult: Elevated troponin REFERRING PHYSICIAN Referring Physician: Perla SOURCE Source: Chart review, Patient HISTORY OF PRESENT ILLNESS HISTORY OF PRESENT ILLNESS This is a 55 yo male admitted for altered mental status. At the present time he is acting confused, tries to answer questions but incomplete. Able to follow commands. He is currently a poor historian. He is able to utter comprehensible words but again incomplete answers. He has a significant other and per chart review he she noted that he has not been acting right and at times shaking his head and has not been able to communicate well. He is not in significant pain currently and laying prone without and difficulty or distress. No mention of any chest pain, SOA or palpitations. PAST MEDICAL HISTORY Cardiovascular: CAD, HTN, Hyperlipidemia, Other (lymphedema) CENTRAL NERVOUS SYSTEM: CVA Heme/Onc: Other (thrmobocytopenia) Hepatobiliary: Cirrhosis Dermatology: Other (venous stasis) PAST SURGICAL HISTORY Past Surgical History Ankle fusion surgery, Knee surgery, Hip surgery, Recent abscess drainage FAMILY HISTORY Family History: Hypertension SOCIAL HISTORY Lives: Friends CURRENT MEDICATIONS CURRENT MEDICATIONS Current Medications Medications (Trade) Dose Ordered Sig/Arsenio Route PRN Reason Start Time Stop Time Status Last Admin Dose Admin Sodium Chloride 1,000 ml @ 1,000 mls/hr 1X ONCE IV 07/10/21 13:15 07/10/21 14:14 DC 07/10/21 13:38 ALLERGIES ALLERGIES: Coded Allergies: No Known Drug Allergies (Unverified , 04/07/20) ROS Review of System unreliable poor historian PHYSICAL EXAM General: Alert, Cooperative, No acute distress HEENT: Atraumatic, Mucous membr. moist/pink Lungs: Clear to auscultation, Normal air movement Heart: Regular rate (SR), Other (distant heart sounds) Abdomen: Soft, Other (obese) Extremities: Other (2+ bilateral LE pitting edema) Skin: No breakdown Neuro: Sensation intact Psych/Mental Status: Other (flat affect, answers questions in incomplete sentence) MUSCULOSKELETAL: Full range of motion without pain VITALS/I&O VITALS/I&O: Vital Signs Date Time Temp Pulse Resp B/P (MAP) Pulse Ox O2 Delivery O2 Flow Rate FiO2 07/10/21 14:01 72 24 94/50 (65) 95 Nasal Cannula 2.0 07/10/21 13:15 97.8 97.8 LABS Lab: Laboratory Tests Test 07/10/21 13:10 07/10/21 13:20 07/10/21 14:45 Glucose (Fingerstick) 84 mg/dL (70-99) White Blood Count 10.7 x10^3/uL (4.0-11.0) Red Blood Count 3.90 x10^6/uL (4.30-5.70) L Hemoglobin 13.0 g/dL (13.0-17.5) Hematocrit 38.1 % (39.0-53.0) L Mean Corpuscular Volume 98 fL (79-100) Mean Corpuscular Hemoglobin 34 pg (25-35) Mean Corpuscular Hemoglobin Concent 34 g/dL (31-37) Red Cell Distribution Width 16.6 % (11.5-14.5) H Platelet Count 66 x10^3/uL (140-400) L Neutrophils (%) (Auto) 84 % (31-73) H Lymphocytes (%) (Auto) 8 % (24-48) L Monocytes (%) (Auto) 8 % (0-9) Eosinophils (%) (Auto) 0 % (0-3) Basophils (%) (Auto) 0 % (0-3) Neutrophils # (Auto) 9.0 x10^3/uL (1.8-7.7) H Lymphocytes # (Auto) 0.8 x10^3/uL (1.0-4.8) L Monocytes # (Auto) 0.8 x10^3/uL (0.0-1.1) Eosinophils # (Auto) 0.0 x10^3/uL (0.0-0.7) Basophils # (Auto) 0.0 x10^3/uL (0.0-0.2) Prothrombin Time 17.1 SEC (11.7-14.0) H Prothrombin Time INR 1.4 (0.8-1.1) H Activated Partial Thromboplast Time 37 SEC (24-38) Sodium Level 134 mmol/L (136-145) L Potassium Level 4.3 mmol/L (3.5-5.1) Chloride Level 102 mmol/L (98-107) Carbon Dioxide Level 21 mmol/L (21-32) Anion Gap 11 (6-14) Blood Urea Nitrogen 40 mg/dL (8-26) H Creatinine 2.8 mg/dL (0.7-1.3) H Estimated GFR (Cockcroft-Gault) 23.8 BUN/Creatinine Ratio 14 (6-20) Glucose Level 96 mg/dL (70-99) Lactic Acid Level 3.8 mmol/L (0.4-2.0) H Calcium Level 8.7 mg/dL (8.5-10.1) Magnesium Level 1.8 mg/dL (1.8-2.4) Total Bilirubin 1.9 mg/dL (0.2-1.0) H Aspartate Amino Transferase (AST) 191 U/L (15-37) H Alanine Aminotransferase (ALT) 105 U/L (16-63) H Alkaline Phosphatase 68 U/L (46-116) Creatine Kinase 235 U/L (39-308) Troponin I Quantitative 0.185 ng/mL (0.000-0.055) Total Protein 6.3 g/dL (6.4-8.2) L Albumin 2.2 g/dL (3.4-5.0) L Albumin/Globulin Ratio 0.5 (1.0-1.7) L Ethyl Alcohol Level < 10 mg/dL (0-10) SARS-CoV-2 Antigen (Rapid) Negative (NEGATIVE) Laboratory Tests 07/10/21 13:20 Laboratory Tests 07/10/21 13:20 ASSESSMENT/PLAN ASSESSMENT/PLAN 1. Encephalopathy vs CVA syndrome 2. Hx of CVA 3. Hx of Cirrhosis with splenomegaly: noted on 04/30/2020 CT abd. Unknown etiology 4. Lactic acidosis 5. Transaminitis, Coagulopathy and thrombocytopenia: 1.. likely from cirrhosis. Defer to PCP 6. Mild troponin elevation: 0.1, no acute changes to EKG. Suspect demand mediated 7. JOSE: Cr 2.8, per PCP 8. Hypotension: low volume Recommendations 1. TTE, TSH, NH3, trend troponin, UDS 2. Hold statin. Stop lisinopril and lasix. Hold BP meds 3. IVF ongoing 4. Consult neurology 5. Change ASA from 325 to 81 mg. Monitor PLT HARVEY TERRELL MD 07/11/21 1838: CARDIAC CONSULT ASSESSMENT/PLAN ASSESSMENT/PLAN Late entry for 07/10/2021 Patient seen and examined. Agree with above nurse practitioner note. Multiorgan failure. Supportive care. Low suspicion for primary cardiac pathology JEFFREY MCKENNA APRN Jul 10, 2021 15:43 HARVEY TERRELL MD Jul 11, 2021 18:38
[2021-07-10] MEDS ORDERED: IOHEXOL 350 MG/ML 100 ML VIAL. IV ONE (15:45)
[2021-07-10] MEDS ORDERED: ASPIRIN RECTAL 300 MG SUPP. PR PRN (15:45)
--- NOTE | 2021-07-10 15:57 | PDOC2 ---
NEUROLOGY CONSULT Date of Service DOS: DATE: 07/10/21 TIME: 15:47 Reason for Consult Reason for Consult: Possible stroke Referring Physician Referring Physician: Dr. Calvin Source Source: Chart review, Patient History of Present Illness History of Present Illness The patient is a 55-year-old right-handed male brought in by emergency medical services from home for altered mental status. Last known normal was 23:00 last night. He has a significant other who reportedly has schizophrenia. She noticed that he was having trouble speaking, answering questions, giving only short answers. She says that he has had several strokes and heart attacks, but patient's daughter told Dr. Duncan that he has no such history. He is on disability because of multiple orthopedic surgeries. 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 He denies any history of stroke, seizure, or head injury. Past Medical History Cardiovascular: CAD, CHF, HTN, ND (?) Pulmonary: Other (Sleep apnea) CENTRAL NERVOUS SYSTEM: CVA Musculoskeletal: Other (Right shoulder limited motion (rotator cuff?), Several fractures) Infectious disease: Other (MRSA) Endocrine: Other (Morbid obesity, lymphedema, venous stasis) Past Surgical History Past Surgical History: Tonsillectomy, Other (Several orthopedic surgeries, cardiac catheterization, coronary stent) Family History Family History: No pertinent hx (He says parents of old age) Social History Social History Has significant other, says he works as a straight truck driver, denies alcohol or tobacco Current Medications Current Medications Current Medications Sodium Chloride 1,000 ml @ 1,000 mls/hr 1X ONCE IV Last administered on 07/10/21at 13:38; Start 07/10/21 at 13:15; Stop 07/10/21 at 14:14; Status DC Naloxone HCl (NARCAN 2mg SYRINGE) 2 mg 1X ONCE IV ; Start 07/10/21 at 13:15; Stop 07/10/21 at 13:16; Status DC Ondansetron HCl (Zofran) 4 mg PRN Q8HRS PRN IVP NAUSEA/VOMITING; Start at 15:15; Stop 07/11/21 at 15:14 Sodium Chloride 1,000 ml @ 100 mls/hr 1X ONCE IV ; Start 07/10/21 at 15:15; Stop 07/11/21 at 01:14 Iohexol (Omnipaque 350 Mg/ml) 75 ml 1X ONCE IV ; Start 07/10/21 at 15:45; Stop 07/10/21 at 15:46; Status DC Active Scripts Active Tramadol Hcl 50 Mg Tablet 50 Mg PO Q6HRS PRN Cipro (Ciprofloxacin Hcl) 500 Mg Tablet 1 Tab PO BID 10 Days Reported Pravastatin Sodium 40 Mg Tablet 1 Tab PO QHS Carvedilol (Carvedilol) 12.5 Mg Tablet 12.5 Mg PO BIDWMEALS Lisinopril 40 Mg Tablet 1 Tab PO DAILY Klor-Con 10 (Potassium Chloride) 10 Meq Tablet.er 10 Meq PO DAILY Furosemide 20 Mg Tablet 20 Mg PO TIDAC Allergies Allergies: Coded Allergies: No Known Drug Allergies (Unverified , 04/07/20) ROS Review of System Negative for fever, chills, weight loss, chest pain, indigestion, hematochezia, melena. Positive for dyspnea and dysuria. Full 14-point review of systems is negative. Physical Exam Physical Examination General: Well-developed, well-nourished, white male, in no acute distress HEENT: Normocephalic andatraumatic. Temporal arteriespulsatile and nontender. Neck: Supple without bruit, no meningismus Musculoskeletal: Stability:see neurologic. Gait exam:see neurologic. Tone:see neurologi c.Strength:see neurologic. Neurological: Mental Status:orientation, memory, attention span/concentration, language, fund of knowledge: Strange exam, he looks at the observer, follows a few commands, gives 1 or 2 word answers, acts like he is not understanding at first. He is silent when I asked him to name objects. Cranial Nerves:Pupils equal and reactive to light, extraocular movements areintact, visual pappas are full to confrontation. Facial sensation is normal. There is no facial asymmetry. Vesti bulo-ocular reflex is intact. Palate elevates and tongue protrudes in midline. All other cranial related problems are negative except as mentioned before.Reflexes:2+ and symmetric with flexor plantar responses. Motor:4/5 strength with normal tone and bulk. Coordination:Finger-nose finger is normal. Rapid alternating movements and fine finger movements are intact. Gait:not test ed. Sensory:Withdraws to minimal pain stimulation in all 4 extremities. Not cooperative with full sensory exam. Vitals VITALS Vital Signs Date Time Temp Pulse Resp B/P (MAP) Pulse Ox O2 Delivery O2 Flow Rate FiO2 07/10/21 14:01 72 24 94/50 (65) 95 Nasal Cannula 2.0 07/10/21 13:15 97.8 97.8 Labs Labs Laboratory Tests Test 07/10/21 13:10 07/10/21 13:20 07/10/21 14:45 Glucose (Fingerstick) 84 mg/dL (70-99) White Blood Count 10.7 x10^3/uL (4.0-11.0) Red Blood Count 3.90 x10^6/uL (4.30-5.70) Hemoglobin 13.0 g/dL (13.0-17.5) Hematocrit 38.1 % (39.0-53.0) Mean Corpuscular Volume 98 fL (79-100) Mean Corpuscular Hemoglobin 34 pg (25-35) Mean Corpuscular Hemoglobin Concent 34 g/dL (31-37) Red Cell Distribution Width 16.6 % (11.5-14.5) Platelet Count 66 x10^3/uL (140-400) Neutrophils (%) (Auto) 84 % (31-73) Lymphocytes (%) (Auto) 8 % (24-48) Monocytes (%) (Auto) 8 % (0-9) Eosinophils (%) (Auto) 0 % (0-3) Basophils (%) (Auto) 0 % (0-3) Neutrophils # (Auto) 9.0 x10^3/uL (1.8-7.7) Lymphocytes # (Auto) 0.8 x10^3/uL (1.0-4.8) Monocytes # (Auto) 0.8 x10^3/uL (0.0-1.1) Eosinophils # (Auto) 0.0 x10^3/uL (0.0-0.7) Basophils # (Auto) 0.0 x10^3/uL (0.0-0.2) Prothrombin Time 17.1 SEC (11.7-14.0) Prothromb Time International Ratio 1.4 (0.8-1.1) Activated Partial Thromboplast Time 37 SEC (24-38) Sodium Level 134 mmol/L (136-145) Potassium Level 4.3 mmol/L (3.5-5.1) Chloride Level 102 mmol/L (98-107) Carbon Dioxide Level 21 mmol/L (21-32) Anion Gap 11 (6-14) Blood Urea Nitrogen 40 mg/dL (8-26) Creatinine 2.8 mg/dL (0.7-1.3) Estimated GFR (Cockcroft-Gault) 23.8 BUN/Creatinine Ratio 14 (6-20) Glucose Level 96 mg/dL (70-99) Lactic Acid Level 3.8 mmol/L (0.4-2.0) Calcium Level 8.7 mg/dL (8.5-10.1) Magnesium Level 1.8 mg/dL (1.8-2.4) Total Bilirubin 1.9 mg/dL (0.2-1.0) Aspartate Amino Transf (AST/SGOT) 191 U/L (15-37) Alanine Aminotransferase (ALT/SGPT) 105 U/L (16-63) Alkaline Phosphatase 68 U/L (46-116) Creatine Kinase 235 U/L (39-308) Troponin I Quantitative 0.185 ng/mL (0.000-0.055) Total Protein 6.3 g/dL (6.4-8.2) Albumin 2.2 g/dL (3.4-5.0) Albumin/Globulin Ratio 0.5 (1.0-1.7) Ethyl Alcohol Level < 10 mg/dL (0-10) SARS-CoV-2 Antigen (Rapid) Negative (NEGATIVE) Laboratory Tests Test 07/10/21 13:10 07/10/21 13:20 07/10/21 14:45 Glucose (Fingerstick) 84 mg/dL (70-99) White Blood Count 10.7 x10^3/uL (4.0-11.0) Red Blood Count 3.90 x10^6/uL (4.30-5.70) Hemoglobin 13.0 g/dL (13.0-17.5) Hematocrit 38.1 % (39.0-53.0) Mean Corpuscular Volume 98 fL (79-100) Mean Corpuscular Hemoglobin 34 pg (25-35) Mean Corpuscular Hemoglobin Concent 34 g/dL (31-37) Red Cell Distribution Width 16.6 % (11.5-14.5) Platelet Count 66 x10^3/uL (140-400) Neutrophils (%) (Auto) 84 % (31-73) Lymphocytes (%) (Auto) 8 % (24-48) Monocytes (%) (Auto) 8 % (0-9) Eosinophils (%) (Auto) 0 % (0-3) Basophils (%) (Auto) 0 % (0-3) Neutrophils # (Auto) 9.0 x10^3/uL (1.8-7.7) Lymphocytes # (Auto) 0.8 x10^3/uL (1.0-4.8) Monocytes # (Auto) 0.8 x10^3/uL (0.0-1.1) Eosinophils # (Auto) 0.0 x10^3/uL (0.0-0.7) Basophils # (Auto) 0.0 x10^3/uL (0.0-0.2) Prothrombin Time 17.1 SEC (11.7-14.0) Prothromb Time International Ratio 1.4 (0.8-1.1) Activated Partial Thromboplast Time 37 SEC (24-38) Sodium Level 134 mmol/L (136-145) Potassium Level 4.3 mmol/L (3.5-5.1) Chloride Level 102 mmol/L (98-107) Carbon Dioxide Level 21 mmol/L (21-32) Anion Gap 11 (6-14) Blood Urea Nitrogen 40 mg/dL (8-26) Creatinine 2.8 mg/dL (0.7-1.3) Estimated GFR (Cockcroft-Gault) 23.8 BUN/Creatinine Ratio 14 (6-20) Glucose Level 96 mg/dL (70-99) Lactic Acid Level 3.8 mmol/L (0.4-2.0) Calcium Level 8.7 mg/dL (8.5-10.1) Magnesium Level 1.8 mg/dL (1.8-2.4) Total Bilirubin 1.9 mg/dL (0.2-1.0) Aspartate Amino Transf (AST/SGOT) 191 U/L (15-37) Alanine Aminotransferase (ALT/SGPT) 105 U/L (16-63) Alkaline Phosphatase 68 U/L (46-116) Creatine Kinase 235 U/L (39-308) Troponin I Quantitative 0.185 ng/mL (0.000-0.055) Total Protein 6.3 g/dL (6.4-8.2) Albumin 2.2 g/dL (3.4-5.0) Albumin/Globulin Ratio 0.5 (1.0-1.7) Ethyl Alcohol Level < 10 mg/dL (0-10) SARS-CoV-2 Antigen (Rapid) Negative (NEGATIVE) Images Images CT STROKE HEAD W/O History: Reason: AMS / Spl. Instructions: / History: Comparison: None. Technique: Noncontrast CT imaging was performed of the head. Exposure: One or more of the following individualized dose reduction techniques were utilized for this examination: 1. Automated exposure control 2. Adjustment of the mA and/or kV according to patient size 3. Use of iterative reconstruction technique. Findings: No intracranial hemorrhage. No mass effect. No hydrocephalus. Mild foci of decreased aeration within the hemispheric white matter, most often due to chronic microvascular ischemia. Imaged orbits are unremarkable. Imaged paranasal sinuses and mastoid air cells are clear. No acute calvarial fracture. Impression: 1. No acute intracranial abnormality. 2. Mild nonspecific white matter changes, most often due to chronic microvascular ischemia. Assessment/Plan Assessment/Plan Impression: I doubt that he has had a stroke, this would be a very strange aphasia, and the examination is otherwise nonfocal. I wonder about psychiatric disease, intoxication, or metabolic issues. Note he does have renal insufficiency, lactic acidosis, hyperbilirubinemia, transaminitis, elevated troponin, and hypoalbuminemia. Ethyl alcohol level is less than 10, urine drug screen is pending. Recommendations: He is well outside the window for alteplase, not a candidate for this medication CT angiogram Cardiac work-up Await urine drug screen Also see stroke orders, even though I doubt that he has had a stroke, he would benefit from rehabilitation modalities, neurological monitoring, speech for swallowing and communication. Consider additional studies including lumbar puncture and electroencephalogram depending on his course Also consider psychiatric assessment team consult Thank you for letting me help with the patient's care. TAHMINA RAMIREZ MD Jul 10, 2021 15:57
[2021-07-10] MEDS ORDERED: CALCIUM CARBONATE 500 MG TAB.CHEW PO PRN (16:00)
[2021-07-10] MEDS ORDERED: ELECTROLYTE (NON-ICU) PROTOCOL. MC PRN (16:00)
[2021-07-10] MEDS ORDERED: ACETAMINOPHEN 325 MG TABLET. PO PRN (16:00)
[2021-07-10] MEDS ORDERED: traMADol 50 MG TABLET PO PRN (16:00)
[2021-07-10 16:37] LABS: CHOLESTEROL/HDL RATIO 15.3
--- NOTE | 2021-07-10 16:50 | RAD ---
CTA HEAD AND NECK W/WO CONTRAST History:Reason: CVA / Spl. Instructions: IV OMNI 350 75 MLS / History: Technique: After bolus of intravenous contrast, volumetric CT data acquisition was acquired of the he ad and neck. Multiplanar reconstruction images to include MIP and 3-D reconstruction images are submi tted. Performed at a separate time from the noncontrast head CT. Exposure: One or more of the following individualized dose reduction techniques were utilized for thi s examination: 1. Automated exposure control 2. Adjustment of the mA and/or kV according to patient size 3. Use of iterative reconstruction technique. Comparison: None Any determination of stenosis is based on NASCET criteria. Head CTA: ICA: No stenosis, occlusion or aneurysm. MCA: No stenosis, occlusion or aneurysm. FAWN: No stenosis, occlusion or aneurysm. COMMUNICATIONS ADMINISTRATOR: No stenosis, occlusion or aneurysm. Basilar artery: No stenosis, occlusion or aneurysm. Distal vertebral arteries: No stenosis, occlusion or aneurysm. CT angiogram neck: Degraded evaluation due to patient body habitus. Aortic arch: Conventional arch anatomy. Common carotid arteries: No stenosis, occlusion or dissection. Internal carotid arteries: No stenosis, occlusion or dissection. External carotid arteries: Patent Vertebral arteries: No stenosis, occlusion or dissection. Imaged lung apices are unremarkable. Soft tissues appear normal. Bones: Multilevel cervical spondylosis. Multifocal carious dentition and periodontal disease. Multipl e missing teeth. Impression: 1. No arterial stenosis or occlusion within the head or neck. FOR INTERNAL CODING PURPOSES Critical result: Findings discussed with Dr. Duncan at 07/10/2021 4:47 PM. RESULT CODE: (C) Electronically signed by: Christofer Vieyra DO (07/10/2021 4:48 PM) [id number]
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
--- NOTE | 2021-07-10 18:32 | EKG ---
[facility] [address] [place] [id number] Test Date: 2021-07-10 Test Time: 13:23:12 Pat Name: LEE JORDAN Department: Room: ED HOLD 2 Gender: M Twister Tender: : 1965 Requested By: YOLI GAINES Order Number: [id number] Reading MD: Adams Christianson MD Measurements Intervals [place] Rate: 71 P: 26 VA: 186 QRS: 14 QRSD: 90 T: 8 QT: 426 QTc: 468 Interpretive Statements SINUS RHYTHM Electronically Signed On 07-11-2021 17:40:11 CDT by Adams Christianson MD
[2021-07-10 19:22] LABS: BILIRUBIN,URINE SMALL (NEG); CLARITY,URINE CLEAR; COLOR,URINE AMBER; NITRITE,URINE NEGATIVE (NEG); PROTEIN,URINE 100 mg/dL (NEG-TRACE)
[2021-07-10 19:29] LABS: BARBITURATES NEG (NEG); BENZODIAZEPINES NEG (NEG); CANNABINOIDS NEG (NEG); COCAINE NEG (NEG); METHADONE NEG (NEG); OPIATES POS (NEG); PHENCYCLIDINE NEG (NEG)
[2021-07-10 19:30] LABS: AMORPHOUS SEDIMENT,UR PRESENT /HPF; BACTERIA,URINE FEW /HPF (0-FEW); HYALINE CASTS, URINE MANY /HPF; RBC,URINE RARE /HPF (0-2)
[2021-07-10 19:36] LABS: AMPHETAMINE/METHAMPHETAMINE NEG (NEG)
[2021-07-10 21:39] VITALS: BP 91/58
[2021-07-10 22:39] VITALS: BP 105/50
[2021-07-10] MEDS: SENNOSIDES/DOCUSATE 8.6/50MG TABLET. PO SCH (22:59)
[2021-07-11 03:39] VITALS: BP 110/40
[2021-07-11 04:24] LABS: HEMOGLOBIN A1C 6.3 % (4.8-5.6)
[2021-07-11 07:16] VITALS: BP 135/44
[2021-07-11] MEDS ORDERED: ASPIRIN ENTERIC COATED 325 MG TABLET.DR. PO SCH (08:00)
[2021-07-11] MEDS ORDERED: PIP/TAZO PER PHARMACY MC PRN (08:15)
[2021-07-11] MEDS ORDERED: VANCOMYCIN 2 GM in IV NORMAL SALINE 500ML BAG 500 ML IV ONE (09:00)
[2021-07-11] MEDS ORDERED: INFLUENZA VAX SCREEN BY RX. MC ONE (09:00)
[2021-07-11] MEDS ORDERED: FLU VACC QUAD 21-22 (6MOS+) PF 0.5 ML SYRINGE. VAX IM ONE (09:00)
[2021-07-11 09:22] LABS: CREATININE 1.5 mg/dL (0.7-1.3)
[2021-07-11] MEDS ORDERED: OMEP20CA16 PO (09:22)
[2021-07-11] MEDS: ASPIRIN ENTERIC COATED 81 MG TABLET.DR. PO SCH (09:22)
[2021-07-11] MEDS: SENNOSIDES/DOCUSATE 8.6/50MG TABLET. PO SCH ×2 (09:22→21:41)
[2021-07-11] MEDS ORDERED: MELO15TA23 PO (09:23)
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
--- NOTE | 2021-07-11 10:38 | NUR ---
Wound Care Pt seen for wound care consultation. No wounds found on head to toe assessment. Calazime cream applied to buttocks area, reddened from moisture. Pt repositioned onto right side with wedge and pillows, heels floated. Wound care signing off at this time.
[2021-07-11 11:02] VITALS: BP 140/56
--- NOTE | 2021-07-11 12:45 | PDOC ---
PROGRESS NOTES Date of Service DATE: 07/11/21 TIME: 12:40 Assessment Problems Medical Problems: (1) Acute renal insufficiency Status: Acute (2) Elevated transaminase level Status: Acute (3) Elevated troponin level Status: Acute (4) Thrombocytopenia Status: Acute I doubt that he has had a stroke, this would be a very strange aphasia, and the examination is otherwise nonfocal. I wonder about psychiatric disease, intoxication, or metabolic issues. Note he does have renal insufficiency, lactic acidosis, hyperbilirubinemia, transaminitis, elevated troponin, and hypoalbuminemia. Ethyl alcohol level is less than 10, urine drug screen is positive for opiates He passed his swallow evaluation He has a very favorable lipid profile, I am going to hold off on statin Plan Repeat head CT tomorrow, too large for MRI scanner. Awaiting speech therapy communication evaluation Cardiac work-up including echocardiogram Physical and Occupational Therapy Aspirin Psychiatric assessment team consult There is no clouding of consciousness that requires an EEG, there is no evidence of central nervous system infection that requires a lumbar puncture Subjective Denies pain Objective Vital Signs Date Time Temp Pulse Resp B/P (MAP) Pulse Ox O2 Delivery O2 Flow Rate FiO2 07/11/21 11:02 97.6 71 18 140/56 (84) 96 Room Air 97.6 07/10/21 22:39 3.0 Intake and Output 07/11/21 07:00 Intake Total 0 ml Output Total 1025 ml Balance -1025 ml Intake Oral 0 ml Output Urine Total 1025 ml # Voids 2 PHYSICAL EXAM Alert. Oriented to place and person. He does not know the date. Still occasional strange hesitancy of speech, for instance he name my watch for me but then when I asked him a different question, he looked at me quizzically for a while. PERRL. EOMI. CN: no focal findings. Muscle tone: normal. Muscle strength: 4/5 DTR: 2+ Plantar reflex: Flexor Gait: not examined in bed. Sensory exam: no abnormal findings. No cerebellar signs elicited. Review of Relevant I have reviewed the following items robby (where applicable) has been applied. Labs Laboratory Tests Test 07/10/21 13:10 07/10/21 13:20 07/10/21 14:45 07/10/21 16:42 Glucose (Fingerstick) 84 mg/dL (70-99) White Blood Count 10.7 x10^3/uL (4.0-11.0) Red Blood Count 3.90 x10^6/uL (4.30-5.70) Hemoglobin 13.0 g/dL (13.0-17.5) Hematocrit 38.1 % (39.0-53.0) Mean Corpuscular Volume 98 fL (79-100) Mean Corpuscular Hemoglobin 34 pg (25-35) Mean Corpuscular Hemoglobin Concent 34 g/dL (31-37) Red Cell Distribution Width 16.6 % (11.5-14.5) Platelet Count 66 x10^3/uL (140-400) Neutrophils (%) (Auto) 84 % (31-73) Lymphocytes (%) (Auto) 8 % (24-48) Monocytes (%) (Auto) 8 % (0-9) Eosinophils (%) (Auto) 0 % (0-3) Basophils (%) (Auto) 0 % (0-3) Neutrophils # (Auto) 9.0 x10^3/uL (1.8-7.7) Lymphocytes # (Auto) 0.8 x10^3/uL (1.0-4.8) Monocytes # (Auto) 0.8 x10^3/uL (0.0-1.1) Eosinophils # (Auto) 0.0 x10^3/uL (0.0-0.7) Basophils # (Auto) 0.0 x10^3/uL (0.0-0.2) Prothrombin Time 17.1 SEC (11.7-14.0) Prothromb Time International Ratio 1.4 (0.8-1.1) Activated Partial Thromboplast Time 37 SEC (24-38) Sodium Level 134 mmol/L (136-145) Potassium Level 4.3 mmol/L (3.5-5.1) Chloride Level 102 mmol/L (98-107) Carbon Dioxide Level 21 mmol/L (21-32) Anion Gap 11 (6-14) Blood Urea Nitrogen 40 mg/dL (8-26) Creatinine 2.8 mg/dL (0.7-1.3) Estimated GFR (Cockcroft-Gault) 23.8 BUN/Creatinine Ratio 14 (6-20) Glucose Level 96 mg/dL (70-99) Hemoglobin A1c 6.3 % (4.8-5.6) Lactic Acid Level 3.8 mmol/L (0.4-2.0) 3.0 mmol/L (0.4-2.0) Calcium Level 8.7 mg/dL (8.5-10.1) Magnesium Level 1.8 mg/dL (1.8-2.4) Total Bilirubin 1.9 mg/dL (0.2-1.0) Aspartate Amino Transf (AST/SGOT) 191 U/L (15-37) Alanine Aminotransferase (ALT/SGPT) 105 U/L (16-63) Alkaline Phosphatase 68 U/L (46-116) Creatine Kinase 235 U/L (39-308) Troponin I Quantitative 0.185 ng/mL (0.000-0.055) Total Protein 6.3 g/dL (6.4-8.2) Albumin 2.2 g/dL (3.4-5.0) Albumin/Globulin Ratio 0.5 (1.0-1.7) Triglycerides Level 166 mg/dL (0-150) Cholesterol Level 107 mg/dL (0-200) LDL Cholesterol, Calculated 67 mg/dL (0-100) VLDL Cholesterol, Calculated 33 mg/dL (0-40) Non-HDL Cholesterol Calculated 100 mg/dL (0-129) HDL Cholesterol 7 mg/dL (40-60) Cholesterol/HDL Ratio 15.3 Thyroid Stimulating Hormone (TSH) 5.786 uIU/mL (0.358-3.74) Free Thyroxine 1.27 ng/dL (0.76-1.46) Ethyl Alcohol Level < 10 mg/dL (0-10) SARS-CoV-2 RNA (VINCE) Negative (Negative) SARS-CoV-2 Antigen (Rapid) Negative (NEGATIVE) Ammonia < 10 mcmol/L (11-34) Test 07/10/21 17:30 07/10/21 18:10 07/10/21 21:20 07/11/21 08:50 Urine Collection Type Void Urine Color Halina Urine Clarity Clear Urine pH 5.0 (<5.0-8.0) Urine Specific Raymond 1.020 (1.000-1.030) Urine Protein 100 mg/dL (NEG-TRACE) Urine Glucose (UA) Negative mg/dL (NEG) Urine Ketones (Stick) Trace mg/dL (NEG) Urine Blood Negative (NEG) Urine Nitrite Negative (NEG) Urine Bilirubin Small (NEG) Urine Urobilinogen Dipstick 1.0 mg/dL (0.2 mg/dL) Urine Leukocyte Esterase Trace (NEG) Urine RBC Rare /HPF (0-2) Urine WBC 5-10 /HPF (0-4) Urine Squamous Epithelial Cells Many /LPF Urine Amorphous Sediment Present /HPF Urine Bacteria Few /HPF (0-FEW) Urine Hyaline Casts Many /HPF Urine Mucus Marked /LPF Urine Opiates Screen Pos (NEG) Urine Methadone Screen Neg (NEG) Urine Barbiturates Neg (NEG) Urine Phencyclidine Screen Neg (NEG) Urine Amphetamine/Methamphetamine Neg (NEG) Urine Benzodiazepines Screen Neg (NEG) Urine Cocaine Screen Neg (NEG) Urine Cannabinoids Screen Neg (NEG) Urine Ethyl Alcohol Neg (NEG) Troponin I Quantitative 0.161 ng/mL (0.000-0.055) 0.178 ng/mL (0.000-0.055) Creatinine 1.5 mg/dL (0.7-1.3) Estimated GFR (Cockcroft-Gault) 49.0 Laboratory Tests Test 07/10/21 13:10 07/10/21 13:20 07/10/21 14:45 07/10/21 16:42 Glucose (Fingerstick) 84 mg/dL (70-99) White Blood Count 10.7 x10^3/uL (4.0-11.0) Red Blood Count 3.90 x10^6/uL (4.30-5.70) Hemoglobin 13.0 g/dL (13.0-17.5) Hematocrit 38.1 % (39.0-53.0) Mean Corpuscular Volume 98 fL (79-100) Mean Corpuscular Hemoglobin 34 pg (25-35) Mean Corpuscular Hemoglobin Concent 34 g/dL (31-37) Red Cell Distribution Width 16.6 % (11.5-14.5) Platelet Count 66 x10^3/uL (140-400) Neutrophils (%) (Auto) 84 % (31-73) Lymphocytes (%) (Auto) 8 % (24-48) Monocytes (%) (Auto) 8 % (0-9) Eosinophils (%) (Auto) 0 % (0-3) Basophils (%) (Auto) 0 % (0-3) Neutrophils # (Auto) 9.0 x10^3/uL (1.8-7.7) Lymphocytes # (Auto) 0.8 x10^3/uL (1.0-4.8) Monocytes # (Auto) 0.8 x10^3/uL (0.0-1.1) Eosinophils # (Auto) 0.0 x10^3/uL (0.0-0.7) Basophils # (Auto) 0.0 x10^3/uL (0.0-0.2) Prothrombin Time 17.1 SEC (11.7-14.0) Prothromb Time International Ratio 1.4 (0.8-1.1) Activated Partial Thromboplast Time 37 SEC (24-38) Sodium Level 134 mmol/L (136-145) Potassium Level 4.3 mmol/L (3.5-5.1) Chloride Level 102 mmol/L (98-107) Carbon Dioxide Level 21 mmol/L (21-32) Anion Gap 11 (6-14) Blood Urea Nitrogen 40 mg/dL (8-26) Creatinine 2.8 mg/dL (0.7-1.3) Estimated GFR (Cockcroft-Gault) 23.8 BUN/Creatinine Ratio 14 (6-20) Glucose Level 96 mg/dL (70-99) Hemoglobin A1c 6.3 % (4.8-5.6) Lactic Acid Level 3.8 mmol/L (0.4-2.0) 3.0 mmol/L (0.4-2.0) Calcium Level 8.7 mg/dL (8.5-10.1) Magnesium Level 1.8 mg/dL (1.8-2.4) Total Bilirubin 1.9 mg/dL (0.2-1.0) Aspartate Amino Transf (AST/SGOT) 191 U/L (15-37) Alanine Aminotransferase (ALT/SGPT) 105 U/L (16-63) Alkaline Phosphatase 68 U/L (46-116) Creatine Kinase 235 U/L (39-308) Troponin I Quantitative 0.185 ng/mL (0.000-0.055) Total Protein 6.3 g/dL (6.4-8.2) Albumin 2.2 g/dL (3.4-5.0) Albumin/Globulin Ratio 0.5 (1.0-1.7) Triglycerides Level 166 mg/dL (0-150) Cholesterol Level 107 mg/dL (0-200) LDL Cholesterol, Calculated 67 mg/dL (0-100) VLDL Cholesterol, Calculated 33 mg/dL (0-40) Non-HDL Cholesterol Calculated 100 mg/dL (0-129) HDL Cholesterol 7 mg/dL (40-60) Cholesterol/HDL Ratio 15.3 Thyroid Stimulating Hormone (TSH) 5.786 uIU/mL (0.358-3.74) Free Thyroxine 1.27 ng/dL (0.76-1.46) Ethyl Alcohol Level < 10 mg/dL (0-10) SARS-CoV-2 RNA (VINCE) Negative (Negative) SARS-CoV-2 Antigen (Rapid) Negative (NEGATIVE) Ammonia < 10 mcmol/L (11-34) Test 07/10/21 17:30 07/10/21 18:10 07/10/21 21:20 07/11/21 08:50 Urine Collection Type Void Urine Color Halina Urine Clarity Clear Urine pH 5.0 (<5.0-8.0) Urine Specific Raymond 1.020 (1.000-1.030) Urine Protein 100 mg/dL (NEG-TRACE) Urine Glucose (UA) Negative mg/dL (NEG) Urine Ketones (Stick) Trace mg/dL (NEG) Urine Blood Negative (NEG) Urine Nitrite Negative (NEG) Urine Bilirubin Small (NEG) Urine Urobilinogen Dipstick 1.0 mg/dL (0.2 mg/dL) Urine Leukocyte Esterase Trace (NEG) Urine RBC Rare /HPF (0-2) Urine WBC 5-10 /HPF (0-4) Urine Squamous Epithelial Cells Many /LPF Urine Amorphous Sediment Present /HPF Urine Bacteria Few /HPF (0-FEW) Urine Hyaline Casts Many /HPF Urine Mucus Marked /LPF Urine Opiates Screen Pos (NEG) Urine Methadone Screen Neg (NEG) Urine Barbiturates Neg (NEG) Urine Phencyclidine Screen Neg (NEG) Urine Amphetamine/Methamphetamine Neg (NEG) Urine Benzodiazepines Screen Neg (NEG) Urine Cocaine Screen Neg (NEG) Urine Cannabinoids Screen Neg (NEG) Urine Ethyl Alcohol Neg (NEG) Troponin I Quantitative 0.161 ng/mL (0.000-0.055) 0.178 ng/mL (0.000-0.055) Creatinine 1.5 mg/dL (0.7-1.3) Estimated GFR (Cockcroft-Gault) 49.0 Microbiology 07/10/21 Blood Culture - Final, Complete Medications Current Medications Sodium Chloride 1,000 ml @ 1,000 mls/hr 1X ONCE IV Last administered on 07/10/21at 13:38; Start 07/10/21 at 13:15; Stop 07/10/21 at 14:14; Status DC Naloxone HCl (NARCAN 2mg SYRINGE) 2 mg 1X ONCE IV ; Start 07/10/21 at 13:15; Stop 07/10/21 at 13:16; Status DC Ondansetron HCl (Zofran) 4 mg PRN Q8HRS PRN IVP NAUSEA/VOMITING; Start at 15:15; Stop 07/11/21 at 10:32; Status DC Sodium Chloride 1,000 ml @ 100 mls/hr 1X ONCE IV Last administered on at 16:42; Start 07/10/21 at 15:15; Stop 07/11/21 at 01:14; Status DC Iohexol (Omnipaque 350 Mg/ml) 75 ml 1X ONCE IV Last administered on 07/10/21at 15:59; Start 07/10/21 at 15:45; Stop 07/10/21 at 15:46; Status DC Acetaminophen (Tylenol) 650 mg PRN Q6HRS PRN PO MILD PAIN / TEMP > 100.3'F; Start 07/10/21 at 15:45 Aspirin (Ecotrin) 325 mg DAILYWBKFT PO ; Start 07/11/21 at 08:00; Stop 07/10/21 at 16:52; Status DC Aspirin (Aspirin Rectal Supp) 300 mg PRN DAILY PRN MD IF UNABLE TO TAKE PO; Start 07/10/21 at 15:45 Tramadol HCl (Ultram) 50 mg Q6HRS PRN PO MODERATE PAIN, SEVERE PAIN; Start 07/10/21 at 16:00; Stop 07/10/21 at 21:39; Status DC Sodium Chloride 1,000 ml @ 1,000 mls/hr 1X ONCE IV Last administered on 07/10/21at 16:41; Start 07/10/21 at 16:00; Stop 07/10/21 at 16:59; Status DC Ondansetron HCl (Zofran) 4 mg PRN Q6HRS PRN IVP NAUSEA/VOMITING; Start 07/10 at 16:00 Calcium Carbonate/ Glycine (Tums) 500 mg PRN Q3HRS PRN PO UPSET STOMACH; Start 07/10/21 at 16:00 Info (Non-Icu Electrolyte Protocol) 1 ea PRN DAILY PRN MC SEE COMMENTS; Start 07/10/21 at 16:00 Acetaminophen (Tylenol) 650 mg PRN Q6HRS PRN PO Headaches, Temp > 101.5F; Start 07/10/21 at 16:00; Status Cancel Senna/Docusate Sodium (Senna Plus) 1 tab BID PO Last administered on 07/11/21at 09:22; Start 07/10/21 at 21:00 Aspirin (Ecotrin) 81 mg DAILYWBKFT PO Last administered on 07/11/21at 09:22; Start 07/11/21 at 08:00 Tramadol HCl (Ultram) 50 mg PRN Q6HRS PRN PO MODERATE PAIN, SEVERE PAIN; Start 07/10/21 at 21:45 Info (FLU VACCINE SCREEN per RX) 1 each 1X ONCE MC ; Start 07/11/21 at 09:00; Stop 07/11/21 at 09:01; Status UNV Influenza Virus Vaccine Quadrival (Flulaval Quad [id number] Syringe) 0.5 ml ONCE ONCE VAX IM Last administered on 07/11/21at 09:26; Start 07/11/21 at 09:00; Stop 07/11/21 at 09:01; Status DC Vancomycin HCl (Vanco Per Pharmacy) 1 each PRN DAILY PRN MC SEE COMMENTS; Start 07/11/21 at 08:15 Piperacillin Sod/ Tazobactam Sod (Zosyn Per Pharmacy) 1 each PRN DAILY PRN MC SEE COMMENTS; Start 07/11/21 at 08:15 Piperacillin Sod/ Tazobactam Sod 3.375 gm/Sodium Chloride 50 ml @ 100 mls/hr Q6HRS IV ; Start 07/11/21 at 10:00 Vancomycin HCl 2 gm/Sodium Chloride 500 ml @ 250 mls/hr 1X ONCE IV Last administered on 07/11/21at 11:34; Start 07/11/21 at 09:00; Stop 07/11/21 at 10:59; Status DC Lorazepam (Ativan) 2 mg PRN Q6HRS PRN PO ANXIETY / AGITATION Last administered on 07/11/21at 09:22; Start 07/11/21 at 08:45 Active Scripts Active Reported Meloxicam 15 Mg Tablet 1 Tab PO DAILY 30 Days Omeprazole 20 Mg Capsule. 1 Cap PO DAILY Pravastatin Sodium 40 Mg Tablet 1 Tab PO QHS Carvedilol (Carvedilol) 12.5 Mg Tablet 12.5 Mg PO BIDWMEALS Lisinopril 40 Mg Tablet 1 Tab PO DAILY Klor-Con 10 (Potassium Chloride) 10 Meq Tablet.er 10 Meq PO DAILY Furosemide 20 Mg Tablet 20 Mg PO TIDAC Vitals/I & O Vital Sign - Last 24 Hours 07/10/21 07/10/21 07/10/21 07/10/21 13:15 13:31 13:45 13:47 Temp 97.8 97.8 Pulse 69 74 70 67 Resp 20 24 24 24 B/P (MAP) 86/42 (57) 94/47 (63) 91/42 (58) 91/43 (59) Pulse Ox 87 90 93 92 O2 Delivery Room Air Nasal Cannula Nasal Cannula Nasal Cannula O2 Flow Rate 2.0 2.0 2.0 07/10/21 07/10/21 07/10/21 07/10/21 14:01 14:16 14:31 14:46 Pulse 72 68 70 72 Resp 24 26 27 31 B/P (MAP) 94/50 (65) 96/55 (69) 89/49 (62) 103/53 (70) Pulse Ox 95 96 96 96 O2 Delivery Nasal Cannula Nasal Cannula Nasal Cannula Nasal Cannula O2 Flow Rate 2.0 2.0 2.0 2.0 07/10/21 07/10/21 07/10/21 07/10/21 15:01 15:16 15:31 16:17 Pulse 72 72 74 Resp 33 32 32 B/P (MAP) 89/44 (59) 81/43 (56) 111/52 (71) 121/59 (79) Pulse Ox 96 95 94 O2 Delivery Nasal Cannula Nasal Cannula Nasal Cannula Nasal Cannula O2 Flow Rate 2.0 2.0 2.0 2.0 07/10/21 07/10/21 07/10/21 07/10/21 17:12 19:42 20:12 20:42 Pulse 84 78 68 82 Resp 19 20 20 B/P (MAP) 110/56 (74) 98/48 (65) 105/57 (73) 110/56 (74) Pulse Ox 98 96 94 O2 Delivery Nasal Cannula Nasal Cannula Nasal Cannula Nasal Cannula O2 Flow Rate 2.0 2.0 2.0 2.0 07/10/21 07/10/21 07/10/21 07/11/21 21:39 22:00 22:39 03:39 Temp 98.5 99.5 98.5 98.5 99.5 98.5 Pulse 84 79 88 Resp 22 24 22 B/P (MAP) 91/58 (69) 105/50 (68) 110/40 (63) Pulse Ox 95 95 91 O2 Delivery Nasal Cannula Nasal Cannula Nasal Cannula Room Air O2 Flow Rate 2.0 2.0 3.0 07/11/21 07/11/21 07:16 11:02 Temp 98.2 97.6 98.2 97.6 Pulse 76 71 Resp 20 18 B/P (MAP) 135/44 (74) 140/56 (84) Pulse Ox 95 96 O2 Delivery Room Air Room Air Intake and Output 07/10/21 07/10/21 07/11/21 15:00 23:00 07:00 Intake Total 0 ml Output Total 300 ml 725 ml Balance -300 ml -725 ml Images CTA HEAD AND NECK W/WO CONTRAST History:Reason: CVA / Spl. Instructions: IV OMNI 350 75 MLS / History: Technique: After bolus of intravenous contrast, volumetric CT data acquisition was acquired of the head and neck. Multiplanar reconstruction images to include MIP and 3-D reconstruction images are submitted. Performed at a separate time from the noncontrast head CT. Exposure: One or more of the following individualized dose reduction techniques were utilized for this examination: 1. Automated exposure control 2. Adjustment of the mA and/or kV according to patient size 3. Use of iterative reconstruction technique. Comparison: None Any determination of stenosis is based on NASCET criteria. Head CTA: ICA: No stenosis, occlusion or aneurysm. MCA: No stenosis, occlusion or aneurysm. FAWN: No stenosis, occlusion or aneurysm. ANESTHESIOLOGY CRNA: No stenosis, occlusion or aneurysm. Basilar artery: No stenosis, occlusion or aneurysm. Distal vertebral arteries: No stenosis, occlusion or aneurysm. CT angiogram neck: Degraded evaluation due to patient body habitus. Aortic arch: Conventional arch anatomy. Common carotid arteries: No stenosis, occlusion or dissection. Internal carotid arteries: No stenosis, occlusion or dissection. External carotid arteries: Patent Vertebral arteries: No stenosis, occlusion or dissection. Imaged lung apices are unremarkable. Soft tissues appear normal. Bones: Multilevel cervical spondylosis. Multifocal carious dentition and periodontal disease. Multiple missing teeth. Impression: 1. No arterial stenosis or occlusion within the head or neck. Justicifation of Admission Dx: Justifications for Admission: Justification of Admission Dx: Yes Sepsis: Infection Angina: Symp at Rest TAHMINA RAMIREZ MD Jul 11, 2021 12:45
[2021-07-11] MEDS ORDERED: PERFLUTREN PROTEIN-A MICROSPHR 0.22 MG/ML 3 ML VIAL. IV ONE ×2 (13:06→13:15)
[2021-07-11] MEDS: VANCOMYCIN PER PHARMACY MC PRN (13:12)
--- NOTE | 2021-07-11 13:13 | NUR ---
Pharmacy Vancomycin Dosing Note S:Consulted to monitor and dose vancomycin started 07/11/21. O:LEE JORDAN is a 55 year old M with Bacteremia. Height: 6 feet, 2 inches Weight: 211.2 kg [place] Body Weight: 82.20 Adjusted Body Weight: 133.80 Dosing Weight: Actual Other Antibiotics: zosyn LABS: Last BUN: 40 Last Creatinine: 1.5 Creatinine Clearance: > 100 mL/min Last WBC: 10.7 Last Procalcitonin: -- Tmax (past 24 hours): 99.5 Microbiology: 07/10: blood cx: (2/2 bottles) gram positive cocci in clusters I/O: -- / 1025 Last dose given 07/11/21 at 1134 Vancomycin Dosing: Loading Dose: 2000 mg x1 Dosing Weight: Actual Target Trough: 15-20 A: Based on: patient's age, weight and renal function. P: 1. Begin Vancomycin 1500 mg IV q12h 2. Follow up Trough level on 07/12/21 at 2230 3. Pharmacy will continue to monitor, follow and adjust therapy as needed. JONNATHAN ARGUELLES RPH, 07/11/21 [id number]
[2021-07-11] MEDS: PIPERACILLIN/TAZOBACTAM 3.375 GM in IV NORMAL SALINE 50ML 50 ML IV SCH ×2 (14:05→18:00)
--- NOTE | 2021-07-11 14:15 | NUR ---
SS following for discharge planning. SS reviewed pt chart and discussed with pt RN. Pt is from home with spouse and is currently requiring oxygen at two liters nasal canula. COVID19 negative. Cardiology, Neurology, and Nephrology consulted. Pt on IV Zosyn and IV Vancomycin. PO diet. Self pay. Med Assist following. SS will continue to follow for discharge planning.
--- NOTE | 2021-07-11 14:37 | PDOC ---
DAVID MAYES COAL BAGGER 07/11/21 1437: CARDIO Progress Notes Date and Time Date of Service 07/11/21 Time of Evaluation 1310 Subjective Subjective: No Chest Pain, No shortness of breath, No Palpitations, Other Vitals Vitals Vital Signs Date Time Temp Pulse Resp B/P (MAP) Pulse Ox O2 Delivery O2 Flow Rate FiO2 07/11/21 13:18 Nasal Cannula 2.0 07/11/21 11:02 97.6 71 18 140/56 (84) 96 97.6 Weight Weight [ ] Input and Output Intake and Output Intake and Output 07/11/21 07:00 Intake Total 0 ml Output Total 1025 ml Balance -1025 ml Intake Oral 0 ml Output Urine Total 1025 ml # Voids 2 Laboratory Labs Laboratory Tests Test 07/10/21 14:45 07/10/21 16:42 07/10/21 17:30 07/10/21 18:10 SARS-CoV-2 RNA (VINCE) Negative (Negative) SARS-CoV-2 Antigen (Rapid) Negative (NEGATIVE) Lactic Acid Level 3.0 mmol/L (0.4-2.0) Ammonia < 10 mcmol/L (11-34) Urine Collection Type Void Urine Color Halina Urine Clarity Clear Urine pH 5.0 (<5.0-8.0) Urine Specific Roy 1.020 (1.000-1.030) Urine Protein 100 mg/dL (NEG-TRACE) Urine Glucose (UA) Negative mg/dL (NEG) Urine Ketones (Stick) Trace mg/dL (NEG) Urine Blood Negative (NEG) Urine Nitrite Negative (NEG) Urine Bilirubin Small (NEG) Urine Urobilinogen Dipstick 1.0 mg/dL (0.2 mg/dL) Urine Leukocyte Esterase Trace (NEG) Urine RBC Rare /HPF (0-2) Urine WBC 5-10 /HPF (0-4) Urine Squamous Epithelial Cells Many /LPF Urine Amorphous Sediment Present /HPF Urine Bacteria Few /HPF (0-FEW) Urine Hyaline Casts Many /HPF Urine Mucus Marked /LPF Urine Opiates Screen Pos (NEG) Urine Methadone Screen Neg (NEG) Urine Barbiturates Neg (NEG) Urine Phencyclidine Screen Neg (NEG) Urine Amphetamine/Methamphetamine Neg (NEG) Urine Benzodiazepines Screen Neg (NEG) Urine Cocaine Screen Neg (NEG) Urine Cannabinoids Screen Neg (NEG) Urine Ethyl Alcohol Neg (NEG) Troponin I Quantitative 0.161 ng/mL (0.000-0.055) Test 07/10/21 21:20 07/11/21 08:50 Troponin I Quantitative 0.178 ng/mL (0.000-0.055) Creatinine 1.5 mg/dL (0.7-1.3) Estimated GFR (Cockcroft-Gault) 49.0 Microbiology Micro Microbiology 07/10/21 Blood Culture - Preliminary, Resulted Physical Exam HEENT: Neck Supple W Full Motion Chest: Symmetric LUNGS: Other (diminished bases) Heart: RRR Abdomen: Soft N/T, Other (obese) Extremities: Other (1+ bilateral LE edema ) Neurology: alert, follow commands, confused Assessment Assessment 1. Encephalopathy; CT without acute findings 2. Lactic acidosis, sepsis, bacteremia; BC with GPC. BP remains low end 3. JOSE: improved 4. Mild troponin elevation: 0.1, no acute changes to EKG. Suspect type II, demand mediated in setting of above 5. Transaminitis, Coagulopathy and thrombocytopenia: 1.66. 6. Hx of Cirrhosis with splenomegaly: noted on 04/30/2020 CT abd. Unknown etiology. 7. Hx of CVA 8. Diabetes, II Recommendations ASA 81mg. Am labs. Monitor PLTs Echo pending Hold ACEi, Lasix with JOSE, hypotension No statin with transaminitis Ongoing antibiotic therapy for bacteremia Supportive care Justicifation of Admission Dx: Justifications for Admission: Justification of Admission Dx: Yes Sepsis: Infection Angina: Symp at Rest HARVEY TERRELL MD 07/11/21 1853: CARDIO Progress Notes Plan Plan The patient was seen and interviewed as well as examined at the bedside. The chart was reviewed. The case was discussed. Agree with the plan of care. DAVID MAYES APRN Jul 11, 2021 14:37 HARVEY TERRELL MD Jul 11, 2021 18:53
[2021-07-11 15:05] VITALS: BP 171/76
[2021-07-11] MEDS: MELOXICAM 7.5 MG TABLET PO SCH (16:04)
[2021-07-11] MEDS: CARVEDILOL 12.5 MG TABLET. PO SCH (16:05)
[2021-07-11] MEDS: FUROSEMIDE 20 MG TABLET PO SCH (16:05)
[2021-07-11] MEDS: PANTOPRAZOLE 40 MG TABLET.DR. PO SCH (16:05)
[2021-07-11] MEDS: LISINOPRIL 20 MG TABLET PO SCH (16:08)
[2021-07-11 19:17] VITALS: BP 157/71
[2021-07-11] MEDS ORDERED: ATORVASTATIN CALCIUM 10 MG TABLET. PO SCH (21:00)
[2021-07-11] MEDS: traMADol 50 MG TABLET PO PRN (21:42)
[2021-07-11 22:24] VITALS: BP 152/68
--- NOTE | 2021-07-11 22:55 | NUR ---
pt is doing sporadic hollers, he says he cant pee. pt got a coude cath last night. used a syringe to pull out what is in the balloon. readjusted it. scanned his bladder, it showed zero. urine began to flow slightly. pt states he doesnt take flomax. will continue to monitor, 3 rn's tried to get iv access on awake overnight counselor. zero success. dr raman said ok for anst to place a peripheral line. lcrn
[2021-07-11] MEDS: VANCOMYCIN 1.5 GM in IV NORMAL SALINE 500ML BAG 500 ML IV SCH (23:00)
[2021-07-11] MEDS: ACETAMINOPHEN 325 MG TABLET. PO PRN (23:37)
[2021-07-12 02:22] VITALS: BP 110/50
[2021-07-12] MEDS: PIPERACILLIN/TAZOBACTAM 3.375 GM in IV NORMAL SALINE 50ML 50 ML IV SCH ×4 (05:52→17:11)
[2021-07-12 07:30] VITALS: BP 151/60
[2021-07-12] MEDS ORDERED: OPIUM/BELLADONNA 30/16.2MG SUPP.RECT. PR PRN (07:30)
[2021-07-12 07:32] LABS: BILIRUBIN,URINE SMALL (NEG); CLARITY,URINE CLEAR; COLOR,URINE AMBER; NITRITE,URINE NEGATIVE (NEG); PROTEIN,URINE NEGATIVE (NEG-TRACE)
[2021-07-12 08:07] LABS: BACTERIA,URINE FEW /HPF (0-FEW)
[2021-07-12 08:17] LABS: BASO # 0.1 x10^3/uL (0.0-0.2); BASO % 1 % (0-3); EOS # 0.1 x10^3/uL (0.0-0.7); EOS % 1 % (0-3); HEMOGLOBIN 12.4 g/dL (13.0-17.5); LYMPH # 1.4 x10^3/uL (1.0-4.8); LYMPH % 16 % (24-48); MEAN CORPUSCULAR HEMOGLOBIN 32 pg (25-35); MEAN CORPUSCULAR HGB CONC 33 g/dL (31-37); MEAN CORPUSCULAR VOLUME 97 fL (79-100); MONO # 1.1 x10^3/uL (0.0-1.1); MONO % 13 % (0-9); NEUT % 70 % (31-73); PLATELET COUNT 67 x10^3/uL (140-400); RED BLOOD COUNT 3.81 x10^6/uL (4.30-5.70); RED CELL DISTRIBUTION WIDTH 16.5 % (11.5-14.5); WHITE BLOOD COUNT 8.5 x10^3/uL (4.0-11.0)
[2021-07-12 08:33] LABS: ALBUMIN 2.1 g/dL (3.4-5.0); ALBUMIN/GLOBULIN RATIO 0.5 (1.0-1.7); CALCIUM 8.3 mg/dL (8.5-10.1); GFR 78.2; POTASSIUM 4.1 mmol/L (3.5-5.1); TOTAL BILIRUBIN 1.9 mg/dL (0.2-1.0); TOTAL PROTEIN 6.4 g/dL (6.4-8.2)
[2021-07-12] MEDS: ASPIRIN ENTERIC COATED 81 MG TABLET.DR. PO SCH (08:47)
[2021-07-12] MEDS: CARVEDILOL 12.5 MG TABLET. PO SCH ×2 (08:47→17:12)
[2021-07-12] MEDS: SENNOSIDES/DOCUSATE 8.6/50MG TABLET. PO SCH ×2 (08:47→20:57)
[2021-07-12] MEDS: PANTOPRAZOLE 40 MG TABLET.DR. PO SCH (08:47)
[2021-07-12] MEDS: FUROSEMIDE 20 MG TABLET PO SCH ×2 (08:47→11:30)
[2021-07-12] MEDS: LISINOPRIL 20 MG TABLET PO SCH (08:48)
[2021-07-12] MEDS: MELOXICAM 7.5 MG TABLET PO SCH (08:48)
[2021-07-12] MEDS ORDERED: LINEZOLID 600 MG TABLET PO SCH (09:00)
[2021-07-12] MEDS ORDERED: LIDOCAINE WITH 8.4% SOD BICARB 3 ML DISP.SYRIN. ONE (09:49)
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
--- NOTE | 2021-07-12 10:16 | RAD ---
CT HEAD/BRAIN WO History: Reason: F/U possible stroke, 202.1KG, can't do MRI / Spl. Instructions: / History: Comparison: July 10, 2021 Technique: Noncontrast CT imaging was performed of the head. Exposure: One or more of the following individualized dose reduction techniques were utilized for thi s examination: 1. Automated exposure control 2. Adjustment of the mA and/or kV according to patient size 3. Use of iterative reconstruction technique. Findings: No intracranial hemorrhage. No mass effect. No hydrocephalus. Mild foci of decreased attenuation within the hemispheric white matter, most often due to chronic cristhian rovascular ischemia, unchanged. Imaged orbits are unremarkable. Imaged paranasal sinuses and mastoid air cells are clear. No acute ca lvarial fracture. Impression: 1. No acute intracranial abnormality. Electronically signed by: Christofer Vieyra DO (07/12/2021 10:13 AM) [id number]
[2021-07-12] MEDS: VANCOMYCIN 1.5 GM in IV NORMAL SALINE 500ML BAG 500 ML IV SCH (11:00)
[2021-07-12 11:13] VITALS: BP 156/60
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
--- NOTE | 2021-07-12 11:59 | NUR ---
SS following up with discharge planning. SS reviewed pt chart and discussed with pt RN. Pt is currently requiring oxygen at two liters nasal canula. COVID19 negative. Pt on IV Vancomycin, IV Zosyn, and PO Zyvox. Positive blood cultures. Order for PICC line placed. PO Diet. PT recommended [facility] unit. Self pay. Med Assist following. SS will continue to follow for discharge planning.
--- NOTE | 2021-07-12 13:44 | CARD ---
MR#: [id number] Date of Study: 07/11/2021 Ordering Physician: AYANNA ACOSTA, Referring Physician: AYANNA ACOSTA Tech: Richelle Gilliland [facility] APPROVED REPORT EXAM: Two-dimensional and M-mode echocardiogram with Doppler and color Doppler. Other Information Quality : Technically LimitedHR: 83bpm Rhythm : NSR INDICATION CVA/TIA Echo Enhancing Agent Indication: Rule Out Septal Defect Agent/Amount Used: Optison 2mL RISK FACTORS Hypertension Obesity Hyperlipidemia 2D DIMENSIONS Left Atrium(2D)4.9 (1.6-4.0cm)IVSd1.5 (0.7-1.1cm) Aortic Root(2D)3.7 (2.0-3.7cm)LVDd4.8 (3.9-5.9cm) LVOT Diameter2.7 (1.8-2.4cm)PWd1.9 (0.7-1.1cm) LVDs3.2 (2.5-4.0cm)FS (%) 34.2 % SV68.7 ml Aortic Valve AoV Peak Espinoza.153.5cm/Perez Peak GR.9.4mmHg Mitral Valve MV E Rgekgkqo13.4cm/sMV DECEL [id number] MV A Hdkoffix97.3cm/sE/A Ratio1.2 TDI Lateral E' P. V14.09cm/sMedial E' P. V11.46cm/s E/Lateral E'6.6E/Medial E'8.1 Tricuspid Valve TR P. [id number]/sTR Peak Gr.27mmHg LEFT VENTRICLE The left ventricle is normal size. There is mild to moderate concentric left ventricular hypertrophy. The left ventricular systolic function is normal and the ejection fraction is within normal range. LV ejection fraction is 55 to 60%. There is normal LV segmental wall motion. RIGHT VENTRICLE The right ventricle is normal size. There is normal right ventricular wall thickness. The right ventr icular systolic function is normal. ATRIA The left atrium is borderline dilated. The right atrium size is normal. The interatrial septum is int act with no evidence for an atrial septal defect or patent foramen ovale as noted on 2-D or Doppler i maging. Negative technically difficult bubble study. AORTIC VALVE The aortic valve is normal in structure and function. Doppler and Color Flow revealed no significant aortic regurgitation. There is no significant aortic valvular stenosis. MITRAL VALVE The mitral valve is normal in structure and function. There is no evidence of mitral valve prolapse. There is no mitral valve stenosis. Doppler and Color-flow revealed trace to mild mitral regurgitation . TRICUSPID VALVE The tricuspid valve is normal in structure and function. Doppler and Color Flow revealed trace tricus pid regurgitation. There is no tricuspid valve stenosis. PULMONIC VALVE The pulmonary valve is normal in structure and function. Doppler and Color Flow revealed no pulmonic valvular regurgitation. GREAT VESSELS The aortic root is normal in size. The ascending aorta is normal in size. The IVC was not visualized. PERICARDIAL EFFUSION There is no evidence of significant pericardial effusion. Critical Notification Critical Value: No <Conclusion> The left ventricle is normal size. The left ventricular systolic function is normal and the ejection fraction is within normal range. LV ejection fraction is 55 to 60%. There is mild to moderate concentric left ventricular hypertrophy. The interatrial septum is intact with no evidence for an atrial septal defect or patent foramen ovale as noted on 2-D or Doppler imaging. Negative technically difficult bubble study. Doppler and Color Flow revealed no significant aortic regurgitation. There is no significant aortic valvular stenosis. Doppler and Color-flow revealed trace to mild mitral regurgitation. Doppler and Color Flow revealed trace tricuspid regurgitation. Signed by : Deepak Russell MD Electronically Approved : 07/12/2021 13:43:57
--- NOTE | 2021-07-12 14:39 | RAD ---
XR CHEST 1V History: Reason: picc placement / Spl. Instructions: / History: Comparison: July 10, 2021 Findings: Interval placement left PICC with tip projecting over the cavoatrial junction. Low lung volumes. Mild diffuse interstitial thickening with ill-defined opacities, unchanged. No pleural effusion. No pneum othorax. Unchanged cardiac size. Impression: 1. Interval placement left PICC. 2. Diffuse interstitial thickening with ill-defined opacities, unchanged. Electronically signed by: Christofer Vieyra DO (07/12/2021 2:36 PM) [id number]
--- NOTE | 2021-07-12 14:48 | PDOC ---
PROGRESS NOTES Date of Service DATE: 07/12/21 TIME: 14:43 Assessment Problems Medical Problems: (1) Acute renal insufficiency Status: Acute (2) Elevated transaminase level Status: Acute (3) Elevated troponin level Status: Acute (4) Thrombocytopenia Status: Acute I doubt that he has had a stroke, CT head negative x2 I wonder about psychiatric disease, consider malingering, intoxication, or metabolic issues. Note he does have renal insufficiency, lactic acidosis, hyperbilirubinemia, transaminitis, elevated troponin, and hypoalbuminemia. Ethyl alcohol level is less than 10, urine drug screen is positive for opiates Speech therapy saw him for cognitive evaluation, patient feigned sleep and did not cooperate He passed his swallow evaluation He has a very favorable lipid profile, I am going to hold off on statin Echocardiogram done Plan Aspirin Awaiting psychiatric assessment team consult There is no clouding of consciousness that requires an EEG, there is no evidence of central nervous system infection that requires a lumbar puncture Discharge patient tomorrow if the additional evaluations are negative. Subjective No complaints Objective Vital Signs Date Time Temp Pulse Resp B/P (MAP) Pulse Ox O2 Delivery O2 Flow Rate FiO2 07/12/21 11:27 18 96 Nasal Cannula 07/12/21 11:13 98.5 82 156/60 (92) 2.0 98.5 Intake and Output 07/12/21 06:59 Intake Total 1220 ml Output Total 1950 ml Balance -730 ml Intake Oral 1220 ml Output Urine Total 1950 ml PHYSICAL EXAM Alert. Oriented to place and person. He does not know the date. Keeps eyes closed. Answers all questions, seems totally disinterested in whether he stays in the hospital goes home PERRL. EOMI. CN: no focal findings. Muscle tone: normal. Muscle strength: 4/5 DTR: 2+ Plantar reflex: Flexor Gait: not examined in bed. Sensory exam: no abnormal findings. No cerebellar signs elicited. Review of Relevant I have reviewed the following items robby (where applicable) has been applied. Labs Laboratory Tests Test 07/10/21 14:45 07/10/21 16:42 07/10/21 17:30 07/10/21 18:10 SARS-CoV-2 RNA (VINCE) Negative (Negative) SARS-CoV-2 Antigen (Rapid) Negative (NEGATIVE) Lactic Acid Level 3.0 mmol/L (0.4-2.0) Ammonia < 10 mcmol/L (11-34) Urine Collection Type Void Urine Color Halina Urine Clarity Clear Urine pH 5.0 (<5.0-8.0) Urine Specific [place] 1.020 (1.000-1.030) Urine Protein 100 mg/dL (NEG-TRACE) Urine Glucose (UA) Negative mg/dL (NEG) Urine Ketones (Stick) Trace mg/dL (NEG) Urine Blood Negative (NEG) Urine Nitrite Negative (NEG) Urine Bilirubin Small (NEG) Urine Urobilinogen Dipstick 1.0 mg/dL (0.2 mg/dL) Urine Leukocyte Esterase Trace (NEG) Urine RBC Rare /HPF (0-2) Urine WBC 5-10 /HPF (0-4) Urine Squamous Epithelial Cells Many /LPF Urine Amorphous Sediment Present /HPF Urine Bacteria Few /HPF (0-FEW) Urine Hyaline Casts Many /HPF Urine Mucus Marked /LPF Urine Opiates Screen Pos (NEG) Urine Methadone Screen Neg (NEG) Urine Barbiturates Neg (NEG) Urine Phencyclidine Screen Neg (NEG) Urine Amphetamine/Methamphetamine Neg (NEG) Urine Benzodiazepines Screen Neg (NEG) Urine Cocaine Screen Neg (NEG) Urine Cannabinoids Screen Neg (NEG) Urine Ethyl Alcohol Neg (NEG) Troponin I Quantitative 0.161 ng/mL (0.000-0.055) Test 07/10/21 21:20 07/11/21 08:50 07/12/21 06:23 07/12/21 06:30 Troponin I Quantitative 0.178 ng/mL (0.000-0.055) Creatinine 1.5 mg/dL (0.7-1.3) 1.0 mg/dL (0.7-1.3) Estimated GFR (Cockcroft-Gault) 49.0 78.2 Urine Collection Type Unknown Urine Color Halina Urine Clarity Clear Urine pH 6.0 (<5.0-8.0) Urine Specific [place] 1.025 (1.000-1.030) Urine Protein Negative mg/dL (NEG-TRACE) Urine Glucose (UA) Negative mg/dL (NEG) Urine Ketones (Stick) 15 mg/dL (NEG) Urine Blood Moderate (NEG) Urine Nitrite Negative (NEG) Urine Bilirubin Small (NEG) Urine Urobilinogen Dipstick 1.0 mg/dL (0.2 mg/dL) Urine Leukocyte Esterase Small (NEG) Urine RBC 11-20 /HPF (0-2) Urine WBC 5-10 /HPF (0-4) Urine Squamous Epithelial Cells Occ /LPF Urine Bacteria Few /HPF (0-FEW) Urine Mucus Slight /LPF White Blood Count 8.5 x10^3/uL (4.0-11.0) Red Blood Count 3.81 x10^6/uL (4.30-5.70) Hemoglobin 12.4 g/dL (13.0-17.5) Hematocrit 37.0 % (39.0-53.0) Mean Corpuscular Volume 97 fL (79-100) Mean Corpuscular Hemoglobin 32 pg (25-35) Mean Corpuscular Hemoglobin Concent 33 g/dL (31-37) Red Cell Distribution Width 16.5 % (11.5-14.5) Platelet Count 67 x10^3/uL (140-400) Neutrophils (%) (Auto) 70 % (31-73) Lymphocytes (%) (Auto) 16 % (24-48) Monocytes (%) (Auto) 13 % (0-9) Eosinophils (%) (Auto) 1 % (0-3) Basophils (%) (Auto) 1 % (0-3) Neutrophils # (Auto) 6.0 x10^3/uL (1.8-7.7) Lymphocytes # (Auto) 1.4 x10^3/uL (1.0-4.8) Monocytes # (Auto) 1.1 x10^3/uL (0.0-1.1) Eosinophils # (Auto) 0.1 x10^3/uL (0.0-0.7) Basophils # (Auto) 0.1 x10^3/uL (0.0-0.2) Sodium Level 136 mmol/L (136-145) Potassium Level 4.1 mmol/L (3.5-5.1) Chloride Level 102 mmol/L (98-107) Carbon Dioxide Level 23 mmol/L (21-32) Anion Gap 11 (6-14) Blood Urea Nitrogen 23 mg/dL (8-26) BUN/Creatinine Ratio 23 (6-20) Glucose Level 97 mg/dL (70-99) Calcium Level 8.3 mg/dL (8.5-10.1) Total Bilirubin 1.9 mg/dL (0.2-1.0) Aspartate Amino Transf (AST/SGOT) 113 U/L (15-37) Alanine Aminotransferase (ALT/SGPT) 69 U/L (16-63) Alkaline Phosphatase 116 U/L (46-116) Total Protein 6.4 g/dL (6.4-8.2) Albumin 2.1 g/dL (3.4-5.0) Albumin/Globulin Ratio 0.5 (1.0-1.7) Laboratory Tests Test 07/12/21 06:23 07/12/21 06:30 Urine Collection Type Unknown Urine Color Halina Urine Clarity Clear Urine pH 6.0 (<5.0-8.0) Urine Specific [place] 1.025 (1.000-1.030) Urine Protein Negative mg/dL (NEG-TRACE) Urine Glucose (UA) Negative mg/dL (NEG) Urine Ketones (Stick) 15 mg/dL (NEG) Urine Blood Moderate (NEG) Urine Nitrite Negative (NEG) Urine Bilirubin Small (NEG) Urine Urobilinogen Dipstick 1.0 mg/dL (0.2 mg/dL) Urine Leukocyte Esterase Small (NEG) Urine RBC 11-20 /HPF (0-2) Urine WBC 5-10 /HPF (0-4) Urine Squamous Epithelial Cells Occ /LPF Urine Bacteria Few /HPF (0-FEW) Urine Mucus Slight /LPF White Blood Count 8.5 x10^3/uL (4.0-11.0) Red Blood Count 3.81 x10^6/uL (4.30-5.70) Hemoglobin 12.4 g/dL (13.0-17.5) Hematocrit 37.0 % (39.0-53.0) Mean Corpuscular Volume 97 fL (79-100) Mean Corpuscular Hemoglobin 32 pg (25-35) Mean Corpuscular Hemoglobin Concent 33 g/dL (31-37) Red Cell Distribution Width 16.5 % (11.5-14.5) Platelet Count 67 x10^3/uL (140-400) Neutrophils (%) (Auto) 70 % (31-73) Lymphocytes (%) (Auto) 16 % (24-48) Monocytes (%) (Auto) 13 % (0-9) Eosinophils (%) (Auto) 1 % (0-3) Basophils (%) (Auto) 1 % (0-3) Neutrophils # (Auto) 6.0 x10^3/uL (1.8-7.7) Lymphocytes # (Auto) 1.4 x10^3/uL (1.0-4.8) Monocytes # (Auto) 1.1 x10^3/uL (0.0-1.1) Eosinophils # (Auto) 0.1 x10^3/uL (0.0-0.7) Basophils # (Auto) 0.1 x10^3/uL (0.0-0.2) Sodium Level 136 mmol/L (136-145) Potassium Level 4.1 mmol/L (3.5-5.1) Chloride Level 102 mmol/L (98-107) Carbon Dioxide Level 23 mmol/L (21-32) Anion Gap 11 (6-14) Blood Urea Nitrogen 23 mg/dL (8-26) Creatinine 1.0 mg/dL (0.7-1.3) Estimated GFR (Cockcroft-Gault) 78.2 BUN/Creatinine Ratio 23 (6-20) Glucose Level 97 mg/dL (70-99) Calcium Level 8.3 mg/dL (8.5-10.1) Total Bilirubin 1.9 mg/dL (0.2-1.0) Aspartate Amino Transf (AST/SGOT) 113 U/L (15-37) Alanine Aminotransferase (ALT/SGPT) 69 U/L (16-63) Alkaline Phosphatase 116 U/L (46-116) Total Protein 6.4 g/dL (6.4-8.2) Albumin 2.1 g/dL (3.4-5.0) Albumin/Globulin Ratio 0.5 (1.0-1.7) Microbiology 07/10/21 Urine Culture - Final, Complete 07/10/21 Blood Culture - Preliminary, Resulted Medications Current Medications Sodium Chloride 1,000 ml @ 1,000 mls/hr 1X ONCE IV Last administered on 07/10/21at 13:38; Start 07/10/21 at 13:15; Stop 07/10/21 at 14:14; Status DC Naloxone HCl (NARCAN 2mg SYRINGE) 2 mg 1X ONCE IV ; Start 07/10/21 at 13:15; Stop 07/10/21 at 13:16; Status DC Ondansetron HCl (Zofran) 4 mg PRN Q8HRS PRN IVP NAUSEA/VOMITING; Start 07/10/21 at 15:15; Stop 07/11/21 at 10:32; Status DC Sodium Chloride 1,000 ml @ 100 mls/hr 1X ONCE IV Last administered on 07/10/21at 16:42; Start 07/10/21 at 15:15; Stop 07/11/21 at 01:14; Status DC Iohexol (Omnipaque 350 Mg/ml) 75 ml 1X ONCE IV Last administered on 07/10/21at 15:59; Start 07/10/21 at 15:45; Stop 07/10/21 at 15:46; Status DC Acetaminophen (Tylenol) 650 mg PRN Q6HRS PRN PO MILD PAIN / TEMP > 100.3'F Last administered on 07/11/21at 23:37; Start 07/10/21 at 15:45 Aspirin (Ecotrin) 325 mg DAILYWBKFT PO ; Start 07/11/21 at 08:00; Stop 07/10/21 at 16:52; Status DC Aspirin (Aspirin Rectal Supp) 300 mg PRN DAILY PRN [place] IF UNABLE TO TAKE PO; Start 07/10/21 at 15:45 Tramadol HCl (Ultram) 50 mg Q6HRS PRN PO MODERATE PAIN, SEVERE PAIN; Start 07/10/21 at 16:00; Stop 07/10/21 at 21:39; Status DC Sodium Chloride 1,000 ml @ 1,000 mls/hr 1X ONCE IV Last administered on 07/10/21at 16:41; Start 07/10/21 at 16:00; Stop 07/10/21 at 16:59; Status DC Ondansetron HCl (Zofran) 4 mg PRN Q6HRS PRN IVP NAUSEA/VOMITING; Start 07/10/21 at 16:00 Calcium Carbonate/ Glycine (Tums) 500 mg PRN Q3HRS PRN PO UPSET STOMACH; Start 07/10/21 at 16:00 Info (Non-Icu Electrolyte Protocol) 1 ea PRN DAILY PRN MC SEE COMMENTS; Start 07/10/21 at 16:00 Acetaminophen (Tylenol) 650 mg PRN Q6HRS PRN PO Headaches, Temp > 101.5F; Start 07/10/21 at 16:00; Status Cancel Senna/Docusate Sodium (Senna Plus) 1 tab BID PO Last administered on 07/12/21at 08:47; Start 07/10/21 at 21:00 Aspirin (Ecotrin) 81 mg DAILYWBKFT PO Last administered on 07/12/21at 08:47; Start 07/11/21 at 08:00 Tramadol HCl (Ultram) 50 mg PRN Q6HRS PRN PO MODERATE PAIN, SEVERE PAIN Last administered on 07/11/21at 21:42; Start 07/10/21 at 21:45 Info (FLU VACCINE SCREEN per RX) 1 each 1X ONCE MC ; Start 07/11/21 at 09:00; Stop 07/11/21 at 09:01; Status UNV Influenza Virus Vaccine Quadrival (Flulaval Quad Syringe) 0.5 ml ONCE ONCE VAX IM Last administered on 07/11/21at 09:26; Start 07/11/21 at 09:00; Stop 07/11/21 at 09:01; Status DC Vancomycin HCl (Vanco Per Pharmacy) 1 each PRN DAILY PRN MC SEE COMMENTS Last administered on 07/11/21at 13:12; Start 07/11/21 at 08:15 Piperacillin Sod/ Tazobactam Sod (Zosyn Per Pharmacy) 1 each PRN DAILY PRN MC SEE COMMENTS; Start 07/11/21 at 08:15 Piperacillin Sod/ Tazobactam Sod 3.375 gm/Sodium Chloride 50 ml @ 100 mls/hr Q6HRS IV Last administered on 07/11/21at 14:05; Start 07/11/21 at 10:00 Vancomycin HCl 2 gm/Sodium Chloride 500 ml @ 250 mls/hr 1X ONCE IV Last administered on 07/11/21at 11:34; Start 07/11/21 at 09:00; Stop 07/11/21 at 10:59; Status DC Lorazepam (Ativan) 2 mg PRN Q6HRS PRN PO ANXIETY / AGITATION Last administered on 07/11/21at 23:38; Start 07/11/21 at 08:45 Vancomycin HCl 1.5 gm/Sodium Chloride 500 ml @ 250 mls/hr Q12H IV ; Start 07/11/21 at 23:00 Perflutren Protein Type A Microsphe (Optison) 0.66 mg STK-MED ONCE IV ; Start 07/11/21 at 13:06; Stop 07/11/21 at 13:07; Status DC Vancomycin HCl (Vancomycin Trough Level) 1 each 1X ONCE MC ; Start 07/12/21 at 22:30; Stop 07/12/21 at 22:31; Status Cancel Perflutren Protein Type A Microsphe (Optison) 0.66 mg 1X ONCE IV Last administered on 07/11/21at 13:15; Start 07/11/21 at 13:15; Stop 07/11/21 at 13:16; Status DC Carvedilol (Coreg) 12.5 mg BIDWMEALS PO Last administered on 07/12/21at 08:47; Start 07/11/21 at 17:00 Furosemide (Lasix) 20 mg TIDAC PO Last administered on 07/12/21at 08:47; Start 07/11/21 at 16:30 Lisinopril (Prinivil) 40 mg DAILY PO Last administered on 07/12/21at 08:48; Start 07/11/21 at 15:00 Meloxicam (Mobic) 15 mg DAILY PO Last administered on 07/12/21at 08:48; Start 07/11/21 at 15:00 Pantoprazole Sodium (Protonix) 40 mg DAILYAC PO Last administered on 07/12/21at 08:47; Start 07/11/21 at 16:30 Atorvastatin Calcium (Lipitor) 10 mg QHS PO Last administered on 07/11/21at 21:41; Start 07/11/21 at 21:00 Belladonna Alkaloids/Opium (B & O) 1 supp PRN Q8HRS PRN [place] BLADDER SPASM Last administered on 07/12/21at 10:57; Start 07/12/21 at 07:30 Linezolid (Zyvox) 600 mg BID PO Last administered on 07/12/21at 08:47; Start 07/12/21 at 09:00 Lidocaine HCl (Buffered Lidocaine 1%) 3 ml STK-MED ONCE .ROUTE ; Start 07/12/21 at 09:49; Stop 07/12/21 at 09:50; Status DC Lactobacillus Rhamnosus (Culturelle) 1 cap BID PO ; Start 07/12/21 at 21:00 Active Scripts Active Reported Meloxicam 15 Mg Tablet 1 Tab PO DAILY 30 Days Omeprazole 20 Mg Capsule.dr 1 Cap PO DAILY Pravastatin Sodium 40 Mg Tablet 1 Tab PO QHS Carvedilol (Carvedilol) 12.5 Mg Tablet 12.5 Mg PO BIDWMEALS Lisinopril 40 Mg Tablet 1 Tab PO DAILY Klor-Con 10 (Potassium Chloride) 10 Meq Tablet.er 10 Meq PO DAILY Furosemide 20 Mg Tablet 20 Mg PO TIDAC Vitals/I & O Vital Sign - Last 24 Hours 07/11/21 07/11/21 07/11/21 07/11/21 15:05 16:05 16:08 19:17 Temp 98.0 98.8 98.0 98.8 Pulse 73 73 73 85 Resp 20 24 B/P (MAP) 171/76 (107) 171/76 171/76 157/71 (99) Pulse Ox 96 93 O2 Delivery Nasal Cannula Nasal Cannula O2 Flow Rate 2.0 2.0 07/11/21 07/11/21 07/12/21 07/12/21 20:00 22:24 01:06 02:22 Temp 99.1 98.6 99.1 98.6 Pulse 80 75 Resp 22 B/P (MAP) 152/68 (96) 110/50 (70) Pulse Ox 93 93 O2 Delivery Nasal Cannula Nasal Cannula Nasal Cannula Nasal Cannula O2 Flow Rate 2.0 2.0 2.0 2.0 07/12/21 07/12/21 07/12/21 07/12/21 07:30 08:05 08:47 08:48 Temp 98.5 98.5 Pulse 84 84 84 Resp 22 B/P (MAP) 151/60 (90) 151/60 151/60 Pulse Ox 96 O2 Delivery Nasal Cannula Nasal Cannula O2 Flow Rate 2.0 2.0 07/12/21 07/12/21 07/12/21 10:57 11:13 11:27 Temp 98.5 98.5 Pulse 82 Resp 22 22 18 B/P (MAP) 156/60 (92) Pulse Ox 96 96 96 O2 Delivery Nasal Cannula Nasal Cannula Nasal Cannula O2 Flow Rate 2.0 2.0 Intake and Output 07/11/21 07/11/21 07/12/21 14:59 22:59 06:59 Intake Total 520 ml 700 ml Output Total 650 ml 1300 ml Balance -130 ml -[address] HEAD/BRAIN WO 07/12/2021 10:13 AM History: Reason: F/U possible stroke, 202.1KG, can't do MRI / Spl. Instructions: / History: Comparison: July 10, 2021 Technique: Noncontrast CT imaging was performed of the head. Exposure: One or more of the following individualized dose reduction techniques were utilized for this examination: 1. Automated exposure control 2. Adjustment of the mA and/or kV according to patient size 3. Use of iterative reconstruction technique. Findings: No intracranial hemorrhage. No mass effect. No hydrocephalus. Mild foci of decreased attenuation within the hemispheric white matter, most often due to chronic microvascular ischemia, unchanged. Imaged orbits are unremarkable. Imaged paranasal sinuses and mastoid air cells are clear. No acute calvarial fracture. Impression: 1. No acute intracranial abnormality. Echocardiogram, 07/11/2021: LEFT VENTRICLE The left ventricle is normal size. There is mild to moderate concentric left ventricular hypertrophy. The left ventricular systolic function is normal and the ejection fraction is within normal range. LV ejection fraction is 55 to 60%. There is normal LV segmental wall motion. RIGHT VENTRICLE The right ventricle is normal size. There is normal right ventricular wall thickness. The right ventricular systolic function is normal. ATRIA The left atrium is borderline dilated. The right atrium size is normal. The interatrial septum is intact with no evidence for an atrial septal defect or patent foramen ovale as noted on 2-D or Doppler imaging. Negative technically difficult bubble study. AORTIC VALVE The aortic valve is normal in structure and function. Doppler and Color Flow revealed no significant aortic regurgitation. There is no significant aortic valvular stenosis. MITRAL VALVE The mitral valve is normal in structure and function. There is no evidence of mitral valve prolapse. There is no mitral valve stenosis. Doppler and Color-flow revealed trace to mild mitral regurgitation. TRICUSPID VALVE The tricuspid valve is normal in structure and function. Doppler and Color Flow revealed trace tricuspid regurgitation. There is no tricuspid valve stenosis. PULMONIC VALVE The pulmonary valve is normal in structure and function. Doppler and Color Flow revealed no pulmonic valvular regurgitation. GREAT VESSELS The aortic root is normal in size. The ascending aorta is normal in size. The IVC was not visualized. PERICARDIAL EFFUSION There is no evidence of significant pericardial effusion. Critical Notification Critical Value: No <Conclusion> The left ventricle is normal size. The left ventricular systolic function is normal and the ejection fraction is within normal range. LV ejection fraction is 55 to 60%. There is mild to moderate concentric left ventricular hypertrophy. The interatrial septum is intact with no evidence for an atrial septal defect or patent foramen ovale as noted on 2-D or Doppler imaging. Negative technically difficult bubble study. Doppler and Color Flow revealed no significant aortic regurgitation. There is no significant aortic valvular stenosis. Doppler and Color-flow revealed trace to mild mitral regurgitation. Doppler and Color Flow revealed trace tricuspid regurgitation. Justicifation of Admission Dx: Justifications for Admission: Justification of Admission Dx: Yes Sepsis: Infection Angina: Symp at Rest TAHMINA RAMIREZ MD Jul 12, 2021 14:48
[2021-07-12 15:04] VITALS: BP 135/62
--- NOTE | 2021-07-12 15:18 | PDOC ---
DAVID MAYES ALL SOURCE INTELLIGENCE ANALYST 07/12/21 1518: CARDIO Progress Notes Date and Time Date of Service 07/12/21 Time of Evaluation 1310 Subjective Subjective: No Chest Pain, No shortness of breath, No Palpitations, Other Vitals Vitals Vital Signs Date Time Temp Pulse Resp B/P (MAP) Pulse Ox O2 Delivery O2 Flow Rate FiO2 07/12/21 11:27 18 96 Nasal Cannula 07/12/21 11:13 98.5 82 156/60 (92) 2.0 98.5 Weight Weight [ ] Input and Output Intake and Output Intake and Output 07/12/21 07:00 Intake Total 1220 ml Output Total 1950 ml Balance -730 ml Intake Oral 1220 ml Output Urine Total 1950 ml Laboratory Labs Laboratory Tests Test 07/12/21 06:23 07/12/21 06:30 Urine Collection Type Unknown Urine Color [place] Urine Clarity Clear Urine pH 6.0 (<5.0-8.0) Urine Specific [place] 1.025 (1.000-1.030) Urine Protein Negative mg/dL (NEG-TRACE) Urine Glucose (UA) Negative mg/dL (NEG) Urine Ketones (Stick) 15 mg/dL (NEG) Urine Blood Moderate (NEG) Urine Nitrite Negative (NEG) Urine Bilirubin Small (NEG) Urine Urobilinogen Dipstick 1.0 mg/dL (0.2 mg/dL) Urine Leukocyte Esterase Small (NEG) Urine RBC 11-20 /HPF (0-2) Urine WBC 5-10 /HPF (0-4) Urine Squamous Epithelial Cells Occ /LPF Urine Bacteria Few /HPF (0-FEW) Urine Mucus Slight /LPF White Blood Count 8.5 x10^3/uL (4.0-11.0) Red Blood Count 3.81 x10^6/uL (4.30-5.70) Hemoglobin 12.4 g/dL (13.0-17.5) Hematocrit 37.0 % (39.0-53.0) Mean Corpuscular Volume 97 fL (79-100) Mean Corpuscular Hemoglobin 32 pg (25-35) Mean Corpuscular Hemoglobin Concent 33 g/dL (31-37) Red Cell Distribution Width 16.5 % (11.5-14.5) Platelet Count 67 x10^3/uL (140-400) Neutrophils (%) (Auto) 70 % (31-73) Lymphocytes (%) (Auto) 16 % (24-48) Monocytes (%) (Auto) 13 % (0-9) Eosinophils (%) (Auto) 1 % (0-3) Basophils (%) (Auto) 1 % (0-3) Neutrophils # (Auto) 6.0 x10^3/uL (1.8-7.7) Lymphocytes # (Auto) 1.4 x10^3/uL (1.0-4.8) Monocytes # (Auto) 1.1 x10^3/uL (0.0-1.1) Eosinophils # (Auto) 0.1 x10^3/uL (0.0-0.7) Basophils # (Auto) 0.1 x10^3/uL (0.0-0.2) Sodium Level 136 mmol/L (136-145) Potassium Level 4.1 mmol/L (3.5-5.1) Chloride Level 102 mmol/L (98-107) Carbon Dioxide Level 23 mmol/L (21-32) Anion Gap 11 (6-14) Blood Urea Nitrogen 23 mg/dL (8-26) Creatinine 1.0 mg/dL (0.7-1.3) Estimated GFR (Cockcroft-Gault) 78.2 BUN/Creatinine Ratio 23 (6-20) Glucose Level 97 mg/dL (70-99) Calcium Level 8.3 mg/dL (8.5-10.1) Total Bilirubin 1.9 mg/dL (0.2-1.0) Aspartate Amino Transf (AST/SGOT) 113 U/L (15-37) Alanine Aminotransferase (ALT/SGPT) 69 U/L (16-63) Alkaline Phosphatase 116 U/L (46-116) Total Protein 6.4 g/dL (6.4-8.2) Albumin 2.1 g/dL (3.4-5.0) Albumin/Globulin Ratio 0.5 (1.0-1.7) Microbiology Micro Microbiology 07/10/21 Urine Culture - Final, Complete 07/10/21 Blood Culture - Preliminary, Resulted Physical Exam HEENT: Neck Supple W Full Motion Chest: Symmetric LUNGS: Other (diminished bases) Heart: RRR Abdomen: Soft N/T, Other (obese) Extremities: Other (1+ bilateral LE edema ) Neurology: alert, follow commands, confused Assessment Assessment 1. Encephalopathy; CT without acute findings 2. Lactic acidosis, sepsis, bacteremia; BC with GPC. BP remains low end 3. JOSE: improved. now normalized 4. Mild troponin elevation: 0.1, no acute changes to EKG. Suspect type II, demand mediated in setting of above. Echo with preserved LV systolic function 5. Transaminitis, Coagulopathy and thrombocytopenia: 1.. 6. Hx of Cirrhosis with splenomegaly: noted on 04/30/2020 CT abd. Unknown etiology. 7. Hx of CVA 8. Diabetes, II Recommendations ASA 81mg. Monitor PLTs Resume oral lasix No statin with transaminitis Ongoing antibiotic therapy for bacteremia Supportive care Justicifation of Admission Dx: Justifications for Admission: Justification of Admission Dx: Yes Sepsis: Infection Angina: Symp at Rest HARVEY TERRELL MD 07/12/21 1903: CARDIO Progress Notes Plan Plan The patient was seen and interviewed as well as examined at the bedside. The chart was reviewed. The case was discussed. Agree with the plan of care. DAVID MAYES APRN Jul 12, 2021 15:18 HARVEY TERRELL MD Jul 12, 2021 19:03
[2021-07-12] MEDS: VANCOMYCIN PER PHARMACY MC PRN (15:58)
--- NOTE | 2021-07-12 15:59 | NUR ---
Pharmacy Vancomycin Dosing Note S: Consulted to monitor and dose vancomycin started 07/11/21. O: LEE JORADN is a 55 year old M with Bacteremia. Other Antibiotics: zosyn LABS: Last BUN: 23 Last Creatinine: 1 Creatinine Clearance: > 100 mL/min Last WBC: 8.5 Last Procalcitonin: -- Tmax (past 24 hours): 99.5 Microbiology: 07/10: blood cx: (2/2 bottles) gram positive cocci in clusters 07/10: blood cx: Group B Strep I/O: 1220 / 1950 Last dose given 07/11/21 at 1134 Vancomycin Dosing: Dosing Weight: Actual Target Trough: 15-20 A: Based on: improvement in patients renal function. P: 1. Increase to Vancomycin 2000 mg IV q12h 2. Follow up Trough level on 07/14/21 at 0430 3. Pharmacy will continue to monitor, follow and adjust therapy as needed. JONNATHAN ARGUELLES, [facility], 07/12/21 [id number]
[2021-07-12] MEDS: VANCOMYCIN 2 GM in IV NORMAL SALINE 500ML BAG 500 ML IV SCH (17:00)
[2021-07-12 19:17] VITALS: BP 154/68
[2021-07-12] MEDS: traMADol 50 MG TABLET PO PRN (20:57)
[2021-07-12] MEDS: LACTOBACILLUS RHAMNOSUS GG 1 CAPSULE. PO SCH (20:57)
[2021-07-12 22:59] VITALS: BP 145/72
[2021-07-13 03:35] VITALS: BP 148/58
[2021-07-13] MEDS: VANCOMYCIN 2 GM in IV NORMAL SALINE 500ML BAG 500 ML IV SCH ×2 (05:00→17:00)
[2021-07-13 05:34] LABS: BASO # 0.1 x10^3/uL (0.0-0.2); BASO % 1 % (0-3); EOS # 0.1 x10^3/uL (0.0-0.7); EOS % 1 % (0-3); HEMATOCRIT 36.2 % (39.0-53.0); HEMOGLOBIN 12.2 g/dL (13.0-17.5); LYMPH # 1.5 x10^3/uL (1.0-4.8); LYMPH % 17 % (24-48); MEAN CORPUSCULAR HEMOGLOBIN 33 pg (25-35); MEAN CORPUSCULAR HGB CONC 34 g/dL (31-37); MEAN CORPUSCULAR VOLUME 96 fL (79-100); MONO # 1.7 x10^3/uL (0.0-1.1); MONO % 19 % (0-9); NEUT # 5.5 x10^3/uL (1.8-7.7); NEUT % 63 % (31-73); PLATELET COUNT 68 x10^3/uL (140-400); RED BLOOD COUNT 3.77 x10^6/uL (4.30-5.70); RED CELL DISTRIBUTION WIDTH 16.3 % (11.5-14.5); WHITE BLOOD COUNT 8.8 x10^3/uL (4.0-11.0)
[2021-07-13] MEDS: PIPERACILLIN/TAZOBACTAM 3.375 GM in IV NORMAL SALINE 50ML 50 ML IV SCH ×4 (06:00→16:59)
[2021-07-13 06:41] LABS: ALBUMIN/GLOBULIN RATIO 0.4 (1.0-1.7); CREATININE 0.9 mg/dL (0.7-1.3); GFR 88.3; POTASSIUM 3.7 mmol/L (3.5-5.1); TOTAL BILIRUBIN 1.9 mg/dL (0.2-1.0); TOTAL PROTEIN 6.7 g/dL (6.4-8.2)
[2021-07-13 07:15] VITALS: BP 135/66
[2021-07-13] MEDS: LACTOBACILLUS RHAMNOSUS GG 1 CAPSULE. PO SCH ×2 (08:23→20:57)
[2021-07-13] MEDS: MELOXICAM 7.5 MG TABLET PO SCH (08:23)
[2021-07-13] MEDS: SENNOSIDES/DOCUSATE 8.6/50MG TABLET. PO SCH ×2 (08:23→21:00)
[2021-07-13] MEDS: PANTOPRAZOLE 40 MG TABLET.DR. PO SCH (08:23)
[2021-07-13] MEDS: FUROSEMIDE 40 MG TABLET. PO SCH (08:24)
[2021-07-13] MEDS: CARVEDILOL 12.5 MG TABLET. PO SCH ×2 (08:24→17:00)
[2021-07-13] MEDS: LISINOPRIL 20 MG TABLET PO SCH (08:24)
[2021-07-13] MEDS: VANCOMYCIN PER PHARMACY MC PRN (08:39)
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
--- NOTE | 2021-07-13 10:33 | PDOC ---
PROGRESS NOTES Date of Service DATE: 07/13/21 TIME: 10:29 Assessment Problems Medical Problems: (1) Acute renal insufficiency Status: Acute (2) Elevated transaminase level Status: Acute (3) Elevated troponin level Status: Acute (4) Thrombocytopenia Status: Acute I doubt that he has had a stroke, CT head negative x2 I wonder about psychiatric disease Speech therapy saw him for cognitive evaluation, patient feigned sleep and did not cooperate He passed his swallow evaluation He has a very favorable lipid profile, I am going to hold off on statin Metabolic/medical issues include gram-positive bacteremia, acute renal insufficiency, elevated transaminases, hyperbilirubinemia, hypoalbuminemia, urine drug screen positive for opiates, elevated troponin, thrombocytopenia. He had lactic acidosis at admission Plan Aspirin Awaiting psychiatric assessment team consult There is no clouding of consciousness that requires an EEG, there is no evidence of central nervous system infection that requires a lumbar puncture Home when medical issues cleared Subjective No complaints Objective Vital Signs Date Time Temp Pulse Resp B/P (MAP) Pulse Ox O2 Delivery O2 Flow Rate FiO2 07/13/21 08:24 81 135/66 07/13/21 08:05 Room Air 07/13/21 07:15 98.0 22 95 98.0 07/12/21 11:13 2.0 Intake and Output 07/13/21 07:00 Intake Total 4280 ml Output Total 900 ml Balance 3380 ml Intake Oral 3680 ml IV Total 600 ml Output Urine Total 900 ml # Voids 2 PHYSICAL EXAM Alert. Oriented to place and person. Knows month and year, much more bright and alert PERRL. EOMI. CN: no focal findings. Muscle tone: normal. Muscle strength: 4/5 DTR: 2+ Plantar reflex: Flexor Gait: not examined in bed. Sensory exam: no abnormal findings. No cerebellar signs elicited. Review of Relevant I have reviewed the following items robby (where applicable) has been applied. Labs Laboratory Tests Test 07/12/21 06:23 07/12/21 06:30 07/13/21 05:15 Urine Collection Type Unknown Urine Color [place] Urine Clarity Clear Urine pH 6.0 (<5.0-8.0) Urine Specific [place] 1.025 (1.000-1.030) Urine Protein Negative mg/dL (NEG-TRACE) Urine Glucose (UA) Negative mg/dL (NEG) Urine Ketones (Stick) 15 mg/dL (NEG) Urine Blood Moderate (NEG) Urine Nitrite Negative (NEG) Urine Bilirubin Small (NEG) Urine Urobilinogen Dipstick 1.0 mg/dL (0.2 mg/dL) Urine Leukocyte Esterase Small (NEG) Urine RBC 11-20 /HPF (0-2) Urine WBC 5-10 /HPF (0-4) Urine Squamous Epithelial Cells Occ /LPF Urine Bacteria Few /HPF (0-FEW) Urine Mucus Slight /LPF White Blood Count 8.5 x10^3/uL (4.0-11.0) 8.8 x10^3/uL (4.0-11.0) Red Blood Count 3.81 x10^6/uL (4.30-5.70) 3.77 x10^6/uL (4.30-5.70) Hemoglobin 12.4 g/dL (13.0-17.5) 12.2 g/dL (13.0-17.5) Hematocrit 37.0 % (39.0-53.0) 36.2 % (39.0-53.0) Mean Corpuscular Volume 97 fL (79-100) 96 fL (79-100) Mean Corpuscular Hemoglobin 32 pg (25-35) 33 pg (25-35) Mean Corpuscular Hemoglobin Concent 33 g/dL (31-37) 34 g/dL (31-37) Red Cell Distribution Width 16.5 % (11.5-14.5) 16.3 % (11.5-14.5) Platelet Count 67 x10^3/uL (140-400) 68 x10^3/uL (140-400) Neutrophils (%) (Auto) 70 % (31-73) 63 % (31-73) Lymphocytes (%) (Auto) 16 % (24-48) 17 % (24-48) Monocytes (%) (Auto) 13 % (0-9) 19 % (0-9) Eosinophils (%) (Auto) 1 % (0-3) 1 % (0-3) Basophils (%) (Auto) 1 % (0-3) 1 % (0-3) Neutrophils # (Auto) 6.0 x10^3/uL (1.8-7.7) 5.5 x10^3/uL (1.8-7.7) Lymphocytes # (Auto) 1.4 x10^3/uL (1.0-4.8) 1.5 x10^3/uL (1.0-4.8) Monocytes # (Auto) 1.1 x10^3/uL (0.0-1.1) 1.7 x10^3/uL (0.0-1.1) Eosinophils # (Auto) 0.1 x10^3/uL (0.0-0.7) 0.1 x10^3/uL (0.0-0.7) Basophils # (Auto) 0.1 x10^3/uL (0.0-0.2) 0.1 x10^3/uL (0.0-0.2) Sodium Level 136 mmol/L (136-145) 133 mmol/L (136-145) Potassium Level 4.1 mmol/L (3.5-5.1) 3.7 mmol/L (3.5-5.1) Chloride Level 102 mmol/L (98-107) 100 mmol/L (98-107) Carbon Dioxide Level 23 mmol/L (21-32) 24 mmol/L (21-32) Anion Gap 11 (6-14) 9 (6-14) Blood Urea Nitrogen 23 mg/dL (8-26) 15 mg/dL (8-26) Creatinine 1.0 mg/dL (0.7-1.3) 0.9 mg/dL (0.7-1.3) Estimated GFR (Cockcroft-Gault) 78.2 88.3 BUN/Creatinine Ratio 23 (6-20) 17 (6-20) Glucose Level 97 mg/dL (70-99) 104 mg/dL (70-99) Calcium Level 8.3 mg/dL (8.5-10.1) 8.0 mg/dL (8.5-10.1) Total Bilirubin 1.9 mg/dL (0.2-1.0) 1.9 mg/dL (0.2-1.0) Aspartate Amino Transf (AST/SGOT) 113 U/L (15-37) 82 U/L (15-37) Alanine Aminotransferase (ALT/SGPT) 69 U/L (16-63) 52 U/L (16-63) Alkaline Phosphatase 116 U/L (46-116) 118 U/L (46-116) Total Protein 6.4 g/dL (6.4-8.2) 6.7 g/dL (6.4-8.2) Albumin 2.1 g/dL (3.4-5.0) 2.0 g/dL (3.4-5.0) Albumin/Globulin Ratio 0.5 (1.0-1.7) 0.4 (1.0-1.7) Laboratory Tests Test 07/13/21 05:15 White Blood Count 8.8 x10^3/uL (4.0-11.0) Red Blood Count 3.77 x10^6/uL (4.30-5.70) Hemoglobin 12.2 g/dL (13.0-17.5) Hematocrit 36.2 % (39.0-53.0) Mean Corpuscular Volume 96 fL (79-100) Mean Corpuscular Hemoglobin 33 pg (25-35) Mean Corpuscular Hemoglobin Concent 34 g/dL (31-37) Red Cell Distribution Width 16.3 % (11.5-14.5) Platelet Count 68 x10^3/uL (140-400) Neutrophils (%) (Auto) 63 % (31-73) Lymphocytes (%) (Auto) 17 % (24-48) Monocytes (%) (Auto) 19 % (0-9) Eosinophils (%) (Auto) 1 % (0-3) Basophils (%) (Auto) 1 % (0-3) Neutrophils # (Auto) 5.5 x10^3/uL (1.8-7.7) Lymphocytes # (Auto) 1.5 x10^3/uL (1.0-4.8) Monocytes # (Auto) 1.7 x10^3/uL (0.0-1.1) Eosinophils # (Auto) 0.1 x10^3/uL (0.0-0.7) Basophils # (Auto) 0.1 x10^3/uL (0.0-0.2) Sodium Level 133 mmol/L (136-145) Potassium Level 3.7 mmol/L (3.5-5.1) Chloride Level 100 mmol/L (98-107) Carbon Dioxide Level 24 mmol/L (21-32) Anion Gap 9 (6-14) Blood Urea Nitrogen 15 mg/dL (8-26) Creatinine 0.9 mg/dL (0.7-1.3) Estimated GFR (Cockcroft-Gault) 88.3 BUN/Creatinine Ratio 17 (6-20) Glucose Level 104 mg/dL (70-99) Calcium Level 8.0 mg/dL (8.5-10.1) Total Bilirubin 1.9 mg/dL (0.2-1.0) Aspartate Amino Transf (AST/SGOT) 82 U/L (15-37) Alanine Aminotransferase (ALT/SGPT) 52 U/L (16-63) Alkaline Phosphatase 118 U/L (46-116) Total Protein 6.7 g/dL (6.4-8.2) Albumin 2.0 g/dL (3.4-5.0) Albumin/Globulin Ratio 0.4 (1.0-1.7) Microbiology 07/10/21 Urine Culture - Final, Complete 07/10/21 Blood Culture - Preliminary, Resulted Medications Current Medications Sodium Chloride 1,000 ml @ 1,000 mls/hr 1X ONCE IV Last administered on 07/10/21at 13:38; Start 07/10/21 at 13:15; Stop 07/10/21 at 14:14; Status DC Naloxone HCl (NARCAN 2mg SYRINGE) 2 mg 1X ONCE IV ; Start 07/10/21 at 13:15; Stop 07/10/21 at 13:16; Status DC Ondansetron HCl (Zofran) 4 mg PRN Q8HRS PRN IVP NAUSEA/VOMITING; Start 07/10/21 at 15:15; Stop 07/11/21 at 10:32; Status DC Sodium Chloride 1,000 ml @ 100 mls/hr 1X ONCE IV Last administered on 07/10/21at 16:42; Start 07/10/21 at 15:15; Stop 07/11/21 at 01:14; Status DC Iohexol (Omnipaque 350 Mg/ml) 75 ml 1X ONCE IV Last administered on 07/10/21at 15:59; Start 07/10/21 at 15:45; Stop 07/10/21 at 15:46; Status DC Acetaminophen (Tylenol) 650 mg PRN Q6HRS PRN PO MILD PAIN / TEMP > 100.3'F Last administered on 07/11/21at 23:37; Start 07/10/21 at 15:45 Aspirin (Ecotrin) 325 mg DAILYWBKFT PO ; Start 07/11/21 at 08:00; Stop 07/10/21 at 16:52; Status DC Aspirin (Aspirin Rectal Supp) 300 mg PRN DAILY PRN AK IF UNABLE TO TAKE PO; Start 07/10/21 at 15:45 Tramadol HCl (Ultram) 50 mg Q6HRS PRN PO MODERATE PAIN, SEVERE PAIN; Start 07/10/21 at 16:00; Stop 07/10/21 at 21:39; Status DC Sodium Chloride 1,000 ml @ 1,000 mls/hr 1X ONCE IV Last administered on 07/10/21at 16:41; Start 07/10/21 at 16:00; Stop 07/10/21 at 16:59; Status DC Ondansetron HCl (Zofran) 4 mg PRN Q6HRS PRN IVP NAUSEA/VOMITING; Start 1 at 16:00 Calcium Carbonate/ Glycine (Tums) 500 mg PRN Q3HRS PRN PO UPSET STOMACH; Start 07/10/21 at 16:00 Info (Non-Icu Electrolyte Protocol) 1 ea PRN DAILY PRN MC SEE COMMENTS; Start 07/10/21 at 16:00 Acetaminophen (Tylenol) 650 mg PRN Q6HRS PRN PO Headaches, Temp > 101.5F; Start 07/10/21 at 16:00; Status Cancel Senna/Docusate Sodium (Senna Plus) 1 tab BID PO Last administered on 07/13/21at 08:23; Start 07/10/21 at 21:00 Aspirin (Ecotrin) 81 mg DAILYWBKFT PO Last administered on 07/12/21at 08:47; Start 07/11/21 at 08:00; Stop 07/12/21 at 19:05; Status DC Tramadol HCl (Ultram) 50 mg PRN Q6HRS PRN PO MODERATE PAIN, SEVERE PAIN Last administered on 07/12/21at 20:57; Start 07/10/21 at 21:45 Info (FLU VACCINE SCREEN per RX) 1 each 1X ONCE MC ; Start 07/11/21 at 09:00; Stop 07/11/21 at 09:01; Status UNV Influenza Virus Vaccine Quadrival (Flulaval Quad [id number] Syringe) 0.5 ml ONCE ONCE VAX IM Last administered on 07/11/21at 09:26; Start 07/11/21 at 09:00; Stop 07/11/21 at 09:01; Status DC Vancomycin HCl (Vanco Per Pharmacy) 1 each PRN DAILY PRN MC SEE COMMENTS Last administered on 07/13/21at 08:39; Start 07/11/21 at 08:15 Piperacillin Sod/ Tazobactam Sod (Zosyn Per Pharmacy) 1 each PRN DAILY PRN MC SEE COMMENTS; Start 07/11/21 at 08:15 Piperacillin Sod/ Tazobactam Sod 3.375 gm/Sodium Chloride 50 ml @ 100 mls/hr Q6HRS IV Last administered on 07/13/21at 06:00; Start 07/11/21 at 10:00 Vancomycin HCl 2 gm/Sodium Chloride 500 ml @ 250 mls/hr 1X ONCE IV Last administered on 07/11/21at 11:34; Start 07/11/21 at 09:00; Stop 07/11/21 at 10:59; Status DC Lorazepam (Ativan) 2 mg PRN Q6HRS PRN PO ANXIETY / AGITATION Last administered on 07/11/21at 23:38; Start 07/11/21 at 08:45 Vancomycin HCl 1.5 gm/Sodium Chloride 500 ml @ 250 mls/hr Q12H IV ; Start 07/11/21 at 23:00; Stop 07/12/21 at 15:52; Status DC Perflutren Protein Type A Microsphe (Optison) 0.66 mg STK-MED ONCE IV ; Start 07/11/21 at 13:06; Stop 07/11/21 at 13:07; Status DC Vancomycin HCl (Vancomycin Trough Level) 1 each 1X ONCE MC ; Start 07/12/21 at 22:30; Stop 07/12/21 at 22:31; Status Cancel Perflutren Protein Type A Microsphe (Optison) 0.66 mg 1X ONCE IV Last administered on 07/11/21at 13:15; Start 07/11/21 at 13:15; Stop 07/11/21 at 13:16; Status DC Carvedilol (Coreg) 12.5 mg BIDWMEALS PO Last administered on 07/13/21at 08:24; Start 07/11/21 at 17:00 Furosemide (Lasix) 20 mg TIDAC PO Last administered on 07/12/21at 08:47; Start 07/11/21 at 16:30; Stop 07/12/21 at 15:12; Status DC Lisinopril (Prinivil) 40 mg DAILY PO Last administered on 07/13/21at 08:24; Start 07/11/21 at 15:00 Meloxicam (Mobic) 15 mg DAILY PO Last administered on 07/13/21at 08:23; Start 07/11/21 at 15:00 Pantoprazole Sodium (Protonix) 40 mg DAILYAC PO Last administered on 07/13/21at 08:23; Start 07/11/21 at 16:30 Atorvastatin Calcium (Lipitor) 10 mg QHS PO Last administered on 07/11/21at 21:41; Start 07/11/21 at 21:00; Stop 07/12/21 at 19:05; Status DC Belladonna Alkaloids/Opium (B & O) 1 supp PRN Q8HRS PRN AK BLADDER SPASM Last administered on 07/12/21at 10:57; Start 07/12/21 at 07:30 Linezolid (Zyvox) 600 mg BID PO Last administered on 07/12/21at 08:47; Start 07/12/21 at 09:00; Stop 07/12/21 at 16:00; Status DC Lidocaine HCl (Buffered Lidocaine 1%) 3 ml STK-MED ONCE .ROUTE ; Start 07/12/21 at 09:49; Stop 07/12/21 at 09:50; Status DC Lactobacillus Rhamnosus (Culturelle) 1 cap BID PO Last administered on 07/13/21at 08:23; Start 07/12/21 at 21:00 Furosemide (Lasix) 40 mg DAILY PO Last administered on 07/13/21at 08:24; Start 07/13/21 at 09:00 Vancomycin HCl 2 gm/Sodium Chloride 500 ml @ 250 mls/hr Q12H IV Last administered on 07/13/21at 05:00; Start 07/12/21 at 17:00 Vancomycin HCl (Vancomycin Trough Level) 1 each 1X ONCE MC ; Start 07/14/21 at 04:30; Stop 07/14/21 at 04:31 Active Scripts Active Reported Meloxicam 15 Mg Tablet 1 Tab PO DAILY 30 Days Omeprazole 20 Mg Capsule.dr 1 Cap PO DAILY Pravastatin Sodium 40 Mg Tablet 1 Tab PO QHS Carvedilol (Carvedilol) 12.5 Mg Tablet 12.5 Mg PO BIDWMEALS Lisinopril 40 Mg Tablet 1 Tab PO DAILY Klor-Con 10 (Potassium Chloride) 10 Meq Tablet.er 10 Meq PO DAILY Furosemide 20 Mg Tablet 20 Mg PO TIDAC Vitals/I & O Vital Sign - Last 24 Hours 07/12/21 07/12/21 07/12/21 07/12/21 10:57 11:13 11:27 15:04 Temp 98.5 97.6 98.5 97.6 Pulse 82 71 Resp 18 B/P (MAP) 156/60 (92) 135/62 (86) Pulse Ox 96 96 96 96 O2 Delivery Nasal Cannula Nasal Cannula Nasal Cannula Room Air O2 Flow Rate 2.0 2.0 07/12/21 07/12/21 07/12/21 07/12/21 17:12 19:17 20:00 22:59 Temp 98.3 98.0 98.3 98.0 Pulse 82 79 85 Resp 19 B/P (MAP) 156/60 154/68 (96) 145/72 (96) Pulse Ox 94 98 O2 Delivery Room Air Room Air Room Air 07/13/21 07/13/21 07/13/21 07/13/21 03:35 07:15 08:05 08:24 Temp 98.9 98.0 98.9 98.0 Pulse 80 81 81 Resp 22 B/P (MAP) 148/58 (88) 135/66 (89) 135/66 Pulse Ox 93 95 O2 Delivery Room Air Room Air Room Air 07/13/21 08:24 Pulse 81 B/P (MAP) 135/66 Intake and Output 07/12/21 07/12/21 07/13/21 15:00 23:00 07:00 Intake Total 240 ml 1590 ml 2450 ml Output Total 900 ml Balance 240 ml 1590 ml 1550 ml Images Echocardiogram, 07/12: LEFT VENTRICLE The left ventricle is normal size. There is mild to moderate concentric left ventricular hypertrophy. The left ventricular systolic function is normal and the ejection fraction is within normal range. LV ejection fraction is 55 to 60%. There is normal LV segmental wall motion. RIGHT VENTRICLE The right ventricle is normal size. There is normal right ventricular wall thickness. The right ventricular systolic function is normal. ATRIA The left atrium is borderline dilated. The right atrium size is normal. The interatrial septum is intact with no evidence for an atrial septal defect or patent foramen ovale as noted on 2-D or Doppler imaging. Negative technically difficult bubble study. AORTIC VALVE The aortic valve is normal in structure and function. Doppler and Color Flow revealed no significant aortic regurgitation. There is no significant aortic valvular stenosis. MITRAL VALVE The mitral valve is normal in structure and function. There is no evidence of mitral valve prolapse. There is no mitral valve stenosis. Doppler and Color-flow revealed trace to mild mitral regurgitation. TRICUSPID VALVE The tricuspid valve is normal in structure and function. Doppler and Color Flow revealed trace tricuspid regurgitation. There is no tricuspid valve stenosis. PULMONIC VALVE The pulmonary valve is normal in structure and function. Doppler and Color Flow revealed no pulmonic valvular regurgitation. GREAT VESSELS The aortic root is normal in size. The ascending aorta is normal in size. The IVC was not visualized. PERICARDIAL EFFUSION There is no evidence of significant pericardial effusion. Critical Notification Critical Value: No <Conclusion> The left ventricle is normal size. The left ventricular systolic function is normal and the ejection fraction is within normal range. LV ejection fraction is 55 to 60%. There is mild to moderate concentric left ventricular hypertrophy. The interatrial septum is intact with no evidence for an atrial septal defect or patent foramen ovale as noted on 2-D or Doppler imaging. Negative technically difficult bubble study. Doppler and Color Flow revealed no significant aortic regurgitation. There is no significant aortic valvular stenosis. Doppler and Color-flow revealed trace to mild mitral regurgitation. Doppler and Color Flow revealed trace tricuspid regurgitation. Justicifation of Admission Dx: Justifications for Admission: Justification of Admission Dx: Yes Sepsis: Infection Angina: Symp at Rest TAHMINA RAMIREZ MD Jul 13, 2021 10:33
[2021-07-13 10:56] VITALS: BP 168/77
[2021-07-13 11:00] LABS: % ATYL 1 % (0-0); % BANDS 4 % (0-9); % EOS 1 % (0-5); % LYMPHS 14 % (24-48); % MONOS 10 % (0-10); % MYELOS 2 % (0-0); % SEGS 68 % (35-66)
[2021-07-13 11:01] LABS: PLT ESTIMATE DECREASED (ADEQUATE)
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
--- NOTE | 2021-07-13 13:30 | NUR ---
SS following up with discharge planning. SS reviewed pt chart and discussed with pt RN. Pt is currently on room air. COVID19 negative. Pt on IV Vancomycin and IV Zosyn. PICC placed yesterday. PT/OT recommended [facility]. Self pay. Med Assist following. SS will continue to follow for discharge planning.
[2021-07-13] MEDS: traMADol 50 MG TABLET PO PRN ×2 (14:05→20:58)
[2021-07-13 15:00] VITALS: BP 170/71
[2021-07-13 19:30] VITALS: BP 124/58
[2021-07-14] VITALS: BP 113/45
[2021-07-14] MEDS: PIPERACILLIN/TAZOBACTAM 3.375 GM in IV NORMAL SALINE 50ML 50 ML IV SCH ×2 (00:54→05:00)
[2021-07-14 03:40] VITALS: BP 122/53
[2021-07-14 05:26] LABS: BASO % 1 % (0-3); EOS # 0.1 x10^3/uL (0.0-0.7); EOS % 1 % (0-3); HEMATOCRIT 34.7 % (39.0-53.0); HEMOGLOBIN 11.9 g/dL (13.0-17.5); LYMPH # 1.6 x10^3/uL (1.0-4.8); LYMPH % 19 % (24-48); MEAN CORPUSCULAR HEMOGLOBIN 33 pg (25-35); MEAN CORPUSCULAR HGB CONC 34 g/dL (31-37); MEAN CORPUSCULAR VOLUME 96 fL (79-100); MONO # 0.7 x10^3/uL (0.0-1.1); MONO % 9 % (0-9); NEUT % 71 % (31-73); PLATELET COUNT 79 x10^3/uL (140-400); RED BLOOD COUNT 3.63 x10^6/uL (4.30-5.70); RED CELL DISTRIBUTION WIDTH 16.3 % (11.5-14.5); WHITE BLOOD COUNT 8.4 x10^3/uL (4.0-11.0)
[2021-07-14 05:35] LABS: VANC TR 10.6 mcg/mL (10.0-20.0)
[2021-07-14] MEDS ORDERED: VANCOMYCIN 2 GM in IV NORMAL SALINE 500ML BAG 500 ML IV SCH (06:00)
[2021-07-14] MEDS: VANCOMYCIN PER PHARMACY MC PRN (06:07)
--- NOTE | 2021-07-14 06:08 | NUR ---
Pharmacy Vancomycin Dosing Note S:Consulted to monitor and dose vancomycin started 07/11/21. O:LEE JORDAN is a 55 year old M with Bacteremia . Height: 6 feet, 2 inches Weight: 210.6 kg Napoleon Body Weight: 82.20 Adjusted Body Weight: 133.56 Dosing Weight: Actual Other Antibiotics: zosyn LABS: Last BUN: 15 Last Creatinine: 0.9 Creatinine Clearance: > 100 mL/min Last WBC: 8.8 Last Procalcitonin: -- Tmax (past 24 hours): 98.9 in last 24 hours Microbiology: 07/10: blood cx: (2/2 bottles) gram positive cocci in clusters 07/10: blood cx: Group B Strep preliminary I/O: 4280/ 900 + 2 voids Drug Levels: Last Trough level: 10.6 on 07/14/21 at 0430 Last dose given 07/13/21 at 0500 Vancomycin Dosing: Loading Dose: 2000 mg x1 Dosing Weight: Actual Target Trough: 15-20 A: Based on: TROUGH AND IMPROVED CRCL P: 1. Begin Vancomycin 2000 mg IV q8h 2. Follow up Trough level on 07/15/21 at 0530 3. Pharmacy will continue to monitor, follow and adjust therapy as needed. JUANA GALDAMEZ RPH, 07/14/21 06 Signed: 07/14/21 at 0608 by JUANA GALDAMEZ RPH PHA
[2021-07-14 06:15] LABS: ALBUMIN 1.9 g/dL (3.4-5.0); ALBUMIN/GLOBULIN RATIO 0.4 (1.0-1.7); CALCIUM 7.8 mg/dL (8.5-10.1); CREATININE 0.9 mg/dL (0.7-1.3); GFR 88.3; POTASSIUM 3.4 mmol/L (3.5-5.1); TOTAL BILIRUBIN 2.2 mg/dL (0.2-1.0); TOTAL PROTEIN 6.2 g/dL (6.4-8.2)
[2021-07-14 07:00] VITALS: BP 123/51
[2021-07-14] MEDS: SENNOSIDES/DOCUSATE 8.6/50MG TABLET. PO SCH ×2 (09:00→21:00)
[2021-07-14] MEDS: CARVEDILOL 12.5 MG TABLET. PO SCH ×2 (09:04→18:35)
[2021-07-14] MEDS: PANTOPRAZOLE 40 MG TABLET.DR. PO SCH (09:04)
[2021-07-14] MEDS: FUROSEMIDE 40 MG TABLET. PO SCH (09:05)
[2021-07-14] MEDS: LACTOBACILLUS RHAMNOSUS GG 1 CAPSULE. PO SCH ×2 (09:05→21:38)
[2021-07-14] MEDS: MELOXICAM 7.5 MG TABLET PO SCH (09:05)
[2021-07-14] MEDS: LISINOPRIL 20 MG TABLET PO SCH (09:06)
[2021-07-14 11:00] VITALS: BP 123/51
--- NOTE | 2021-07-14 11:20 | PDOC ---
Renal-Progress Notes Subjective Notes Notes NO COMPLAINTS History of Present Illness Hx of present illness SOME CONFUSION Vitals Vitals Vital Signs Date Time Temp Pulse Resp B/P (MAP) Pulse Ox O2 Delivery O2 Flow Rate FiO2 07/14/21 09:06 76 123/51 07/14/21 08:00 Room Air 07/14/21 07:00 98.0 18 88 98.0 07/14/21 03:40 2.0 Weight Weight [ ] I.O. Intake and Output Intake and Output 07/14/21 07:00 Intake Total 2300 ml Output Total 2250 ml Balance 50 ml Intake Oral 1750 ml IV Total 550 ml Output Urine Total 2250 ml # Bowel Movements 4 Labs Labs Laboratory Tests Test 07/14/21 04:30 White Blood Count 8.4 x10^3/uL (4.0-11.0) Red Blood Count 3.63 x10^6/uL (4.30-5.70) Hemoglobin 11.9 g/dL (13.0-17.5) Hematocrit 34.7 % (39.0-53.0) Mean Corpuscular Volume 96 fL (79-100) Mean Corpuscular Hemoglobin 33 pg (25-35) Mean Corpuscular Hemoglobin Concent 34 g/dL (31-37) Red Cell Distribution Width 16.3 % (11.5-14.5) Platelet Count 79 x10^3/uL (140-400) Neutrophils (%) (Auto) 71 % (31-73) Lymphocytes (%) (Auto) 19 % (24-48) Monocytes (%) (Auto) 9 % (0-9) Eosinophils (%) (Auto) 1 % (0-3) Basophils (%) (Auto) 1 % (0-3) Neutrophils # (Auto) 6.0 x10^3/uL (1.8-7.7) Lymphocytes # (Auto) 1.6 x10^3/uL (1.0-4.8) Monocytes # (Auto) 0.7 x10^3/uL (0.0-1.1) Eosinophils # (Auto) 0.1 x10^3/uL (0.0-0.7) Basophils # (Auto) 0.0 x10^3/uL (0.0-0.2) Sodium Level 132 mmol/L (136-145) Potassium Level 3.4 mmol/L (3.5-5.1) Chloride Level 99 mmol/L (98-107) Carbon Dioxide Level 24 mmol/L (21-32) Anion Gap 9 (6-14) Blood Urea Nitrogen 13 mg/dL (8-26) Creatinine 0.9 mg/dL (0.7-1.3) Estimated GFR (Cockcroft-Gault) 88.3 BUN/Creatinine Ratio 14 (6-20) Glucose Level 110 mg/dL (70-99) Calcium Level 7.8 mg/dL (8.5-10.1) Total Bilirubin 2.2 mg/dL (0.2-1.0) Aspartate Amino Transf (AST/SGOT) 76 U/L (15-37) Alanine Aminotransferase (ALT/SGPT) 42 U/L (16-63) Alkaline Phosphatase 142 U/L (46-116) Total Protein 6.2 g/dL (6.4-8.2) Albumin 1.9 g/dL (3.4-5.0) Albumin/Globulin Ratio 0.4 (1.0-1.7) Vancomycin Level Trough 10.6 mcg/mL (10.0-20.0) Vancomycin Last Dose Date 07/13/21 Vancomycin Last Dose Time 1700 Micro Micro Microbiology 07/10/21 Urine Culture - Final, Complete 07/10/21 Blood Culture - Preliminary, Resulted Review of Systems Constitutional: yes: other (SOME CONFUSION) Physical Exam General Appearance: no apparent distress Skin: warm Respiratory: bilateral CTA Heart: S1S2 Abdomen: soft Genitourinary: bladder flat, no mass Neurology: alert, follow commands, confused Musculoskeletal: Other (Right shoulder limited motion (rotator cuff?), Several fractures) Assessment Assessment IMP JOSE-NEARLY RESOLVED. CR OF 2.8 TO NL SEPSIS BACTEREMIA MET ACIDOSIS-BETTER HYPOKALEMIA MILD HYPONATREMIA DM II HX CVC HTN PLAN ANTIBIOTICS REPLACE K LABS IN AM WILL FOLLOW TIFFANIE SHIPMAN MD Jul 14, 2021 11:20
[2021-07-14] MEDS ORDERED: POTASSIUM CHLORIDE 20 MEQ TABLET.ER. PO ONE (11:30)
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
[2021-07-14 15:00] VITALS: BP 156/66
[2021-07-14] MEDS: cefTRIAXone IV Push 2 GM VIAL. IVP SCH (15:42)
[2021-07-14] MEDS: guaiFENesin/CODEINE 100mg/10mg 5 ML LIQUID PO PRN (18:34)
[2021-07-14 19:00] VITALS: BP 158/73
[2021-07-14] MEDS: ACETAMINOPHEN 325 MG TABLET. PO PRN (19:36)
[2021-07-14] MEDS: traMADol 50 MG TABLET PO PRN (21:39)
[2021-07-15 02:48] VITALS: BP 153/69
[2021-07-15 06:16] LABS: BASO # 0.1 x10^3/uL (0.0-0.2); BASO % 1 % (0-3); EOS # 0.1 x10^3/uL (0.0-0.7); EOS % 1 % (0-3); HEMATOCRIT 33.6 % (39.0-53.0); HEMOGLOBIN 11.5 g/dL (13.0-17.5); LYMPH # 1.4 x10^3/uL (1.0-4.8); LYMPH % 14 % (24-48); MEAN CORPUSCULAR HEMOGLOBIN 33 pg (25-35); MEAN CORPUSCULAR HGB CONC 34 g/dL (31-37); MEAN CORPUSCULAR VOLUME 96 fL (79-100); MONO # 1.2 x10^3/uL (0.0-1.1); MONO % 13 % (0-9); NEUT # 6.8 x10^3/uL (1.8-7.7); NEUT % 71 % (31-73); PLATELET COUNT 93 x10^3/uL (140-400); RED BLOOD COUNT 3.52 x10^6/uL (4.30-5.70); RED CELL DISTRIBUTION WIDTH 16.1 % (11.5-14.5); WHITE BLOOD COUNT 9.6 x10^3/uL (4.0-11.0)
[2021-07-15 06:39] LABS: ALBUMIN 1.9 g/dL (3.4-5.0); ALBUMIN/GLOBULIN RATIO 0.4 (1.0-1.7); CALCIUM 7.7 mg/dL (8.5-10.1); CREATININE 0.9 mg/dL (0.7-1.3); GFR 88.3; POTASSIUM 3.3 mmol/L (3.5-5.1); TOTAL BILIRUBIN 1.9 mg/dL (0.2-1.0); TOTAL PROTEIN 6.3 g/dL (6.4-8.2)
[2021-07-15 07:39] VITALS: BP 120/49
[2021-07-15] MEDS: PANTOPRAZOLE 40 MG TABLET.DR. PO SCH (08:37)
[2021-07-15] MEDS: LACTOBACILLUS RHAMNOSUS GG 1 CAPSULE. PO SCH ×2 (08:37→21:12)
[2021-07-15] MEDS: CARVEDILOL 12.5 MG TABLET. PO SCH ×2 (08:38→18:06)
[2021-07-15] MEDS: LISINOPRIL 20 MG TABLET PO SCH (08:39)
[2021-07-15] MEDS: MELOXICAM 7.5 MG TABLET PO SCH (08:39)
[2021-07-15] MEDS: SENNOSIDES/DOCUSATE 8.6/50MG TABLET. PO SCH ×2 (09:00→21:13)
[2021-07-15 11:00] VITALS: BP 123/50
--- NOTE | 2021-07-15 11:02 | PDOC ---
Renal-Progress Notes Subjective Notes Notes NO NEW COMPLAINTS History of Present Illness Hx of present illness STABLE Vitals Vitals Vital Signs Date Time Temp Pulse Resp B/P (MAP) Pulse Ox O2 Delivery O2 Flow Rate FiO2 07/15/21 08:39 87 120/49 07/15/21 07:39 99.4 16 99 Room Air 99.4 07/14/21 11:00 2.0 Weight Weight [ ] I.O. Intake and Output Intake and Output 07/15/21 07:00 Intake Total 1594 ml Output Total 1650 ml Balance -56 ml Intake Oral 1094 ml IV Total 500 ml Output Urine Total 1650 ml # Bowel Movements 2 Labs Labs Laboratory Tests Test 07/15/21 05:30 White Blood Count 9.6 x10^3/uL (4.0-11.0) Red Blood Count 3.52 x10^6/uL (4.30-5.70) Hemoglobin 11.5 g/dL (13.0-17.5) Hematocrit 33.6 % (39.0-53.0) Mean Corpuscular Volume 96 fL (79-100) Mean Corpuscular Hemoglobin 33 pg (25-35) Mean Corpuscular Hemoglobin Concent 34 g/dL (31-37) Red Cell Distribution Width 16.1 % (11.5-14.5) Platelet Count 93 x10^3/uL (140-400) Neutrophils (%) (Auto) 71 % (31-73) Lymphocytes (%) (Auto) 14 % (24-48) Monocytes (%) (Auto) 13 % (0-9) Eosinophils (%) (Auto) 1 % (0-3) Basophils (%) (Auto) 1 % (0-3) Neutrophils # (Auto) 6.8 x10^3/uL (1.8-7.7) Lymphocytes # (Auto) 1.4 x10^3/uL (1.0-4.8) Monocytes # (Auto) 1.2 x10^3/uL (0.0-1.1) Eosinophils # (Auto) 0.1 x10^3/uL (0.0-0.7) Basophils # (Auto) 0.1 x10^3/uL (0.0-0.2) Sodium Level 131 mmol/L (136-145) Potassium Level 3.3 mmol/L (3.5-5.1) Chloride Level 99 mmol/L (98-107) Carbon Dioxide Level 24 mmol/L (21-32) Anion Gap 8 (6-14) Blood Urea Nitrogen 13 mg/dL (8-26) Creatinine 0.9 mg/dL (0.7-1.3) Estimated GFR (Cockcroft-Gault) 88.3 BUN/Creatinine Ratio 14 (6-20) Glucose Level 116 mg/dL (70-99) Calcium Level 7.7 mg/dL (8.5-10.1) Magnesium Level 1.5 mg/dL (1.8-2.4) Total Bilirubin 1.9 mg/dL (0.2-1.0) Aspartate Amino Transf (AST/SGOT) 77 U/L (15-37) Alanine Aminotransferase (ALT/SGPT) 38 U/L (16-63) Alkaline Phosphatase 160 U/L (46-116) Total Protein 6.3 g/dL (6.4-8.2) Albumin 1.9 g/dL (3.4-5.0) Albumin/Globulin Ratio 0.4 (1.0-1.7) Micro Micro Microbiology 07/10/21 Urine Culture - Final, Complete 07/10/21 Blood Culture - Preliminary, Resulted Review of Systems Constitutional: yes: other (SOME CONFUSION) Physical Exam General Appearance: no apparent distress Skin: warm Respiratory: bilateral CTA Heart: S1S2 Abdomen: soft Genitourinary: bladder flat, no mass Neurology: alert, follow commands, confused Musculoskeletal: Other (Right shoulder limited motion (rotator cuff?), Several fractures) Assessment Assessment IMP JOSE-NEARLY RESOLVED. CR OF 2.8 TO NL SEPSIS BACTEREMIA MET ACIDOSIS-BETTER HYPOKALEMIA HYPOMAGNESEMIA MILD HYPONATREMIA DM II HX CVC HTN PLAN ANTIBIOTICS REPLACE K REPLACE MAG LABS IN AM WILL FOLLOW TIFFANIE SHIPMAN MD Jul 15, 2021 11:02
[2021-07-15] MEDS ORDERED: MAGNESIUM SULFATE 2GM 50 ML IV ONE (12:00)
[2021-07-15] MEDS ORDERED: POTASSIUM CHLORIDE 20 MEQ TABLET.ER. PO ONE (12:00)
[2021-07-15] MEDS: FUROSEMIDE 40 MG TABLET. PO SCH (12:13)
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
[2021-07-15] MEDS: cefTRIAXone IV Push 2 GM VIAL. IVP SCH (14:01)
[2021-07-15 15:00] VITALS: BP 133/53
[2021-07-15 19:00] VITALS: BP 127/46
[2021-07-15 22:54] VITALS: BP 153/67
[2021-07-16 02:54] VITALS: BP 112/39
[2021-07-16] MEDS: traMADol 50 MG TABLET PO PRN ×2 (04:18→12:34)
[2021-07-16] MEDS: guaiFENesin/CODEINE 100mg/10mg 5 ML LIQUID PO PRN (04:18)
[2021-07-16] MEDS: PANTOPRAZOLE 40 MG TABLET.DR. PO SCH (05:17)
[2021-07-16 05:44] LABS: BASO % 0 % (0-3); EOS # 0.1 x10^3/uL (0.0-0.7); EOS % 1 % (0-3); HEMATOCRIT 33.3 % (39.0-53.0); HEMOGLOBIN 11.4 g/dL (13.0-17.5); LYMPH # 1.3 x10^3/uL (1.0-4.8); LYMPH % 14 % (24-48); MEAN CORPUSCULAR HEMOGLOBIN 33 pg (25-35); MEAN CORPUSCULAR HGB CONC 34 g/dL (31-37); MEAN CORPUSCULAR VOLUME 96 fL (79-100); MONO % 11 % (0-9); NEUT # 6.7 x10^3/uL (1.8-7.7); NEUT % 74 % (31-73); PLATELET COUNT 107 x10^3/uL (140-400); RED BLOOD COUNT 3.47 x10^6/uL (4.30-5.70); RED CELL DISTRIBUTION WIDTH 16.3 % (11.5-14.5)
[2021-07-16 05:50] LABS: ALBUMIN 1.8 g/dL (3.4-5.0); ALBUMIN/GLOBULIN RATIO 0.4 (1.0-1.7); CALCIUM 7.9 mg/dL (8.5-10.1); CREATININE 0.9 mg/dL (0.7-1.3); GFR 88.3; MAGNESIUM 1.8 mg/dL (1.8-2.4); POTASSIUM 3.4 mmol/L (3.5-5.1); TOTAL BILIRUBIN 1.6 mg/dL (0.2-1.0); TOTAL PROTEIN 6.4 g/dL (6.4-8.2)
[2021-07-16 07:46] VITALS: BP 134/54
[2021-07-16] MEDS: CARVEDILOL 12.5 MG TABLET. PO SCH (08:38)
[2021-07-16] MEDS: LACTOBACILLUS RHAMNOSUS GG 1 CAPSULE. PO SCH (08:39)
[2021-07-16] MEDS: FUROSEMIDE 40 MG TABLET. PO SCH (08:40)
[2021-07-16] MEDS: MELOXICAM 7.5 MG TABLET PO SCH (08:40)
[2021-07-16] MEDS: LISINOPRIL 20 MG TABLET PO SCH (08:41)
[2021-07-16] MEDS: SENNOSIDES/DOCUSATE 8.6/50MG TABLET. PO SCH (08:41)
--- NOTE | 2021-07-16 08:53 | PDOC ---
PROGRESS NOTES Date of Service DATE: 07/16/21 TIME: 08:50 Assessment Problems Medical Problems: (1) Acute renal insufficiency Status: Acute (2) Elevated transaminase level Status: Acute (3) Elevated troponin level Status: Acute (4) Thrombocytopenia Status: Acute Metabolic encephalopathy, he thinks he got sepsis from cysts in his axilla popping internally. No stroke, CT head negative x2 I wonder about psychiatric disease, psychiatric assessment team never saw him (requested on 07/11) Speech therapy saw him for cognitive evaluation, patient feigned sleep and did not cooperate He passed his swallow evaluation He has a very favorable lipid profile, I am going to hold off on statin Metabolic/medical issues include gram-positive bacteremia, acute renal insufficiency, elevated transaminases, hyperbilirubinemia, hypoalbuminemia, urine drug screen positive for opiates, elevated troponin, thrombocytopenia. He had lactic acidosis at admission. Plan Aspirin No additional neurological tests needed Okay for discharge Subjective No complaints, has figured out explanation for the sepsis as listed above Objective Vital Signs Date Time Temp Pulse Resp B/P (MAP) Pulse Ox O2 Delivery O2 Flow Rate FiO2 07/16/21 08:41 75 134/54 07/16/21 07:46 99.4 18 92 Room Air 99.4 Intake and Output 07/16/21 07:00 Intake Total 2490 ml Output Total 2750 ml Balance -260 ml Intake Oral 2440 ml IV Total 50 ml Output Urine Total 2750 ml # Bowel Movements 1 PHYSICAL EXAM Alert. Oriented to place and person. Knows month and year. PERRL. EOMI. CN: no focal findings. Muscle tone: normal. Muscle strength: 4/5 DTR: 2+ Plantar reflex: Flexor Gait: not examined in bed. Sensory exam: no abnormal findings. No cerebellar signs elicited. Review of Relevant I have reviewed the following items robby (where applicable) has been applied. Labs Laboratory Tests Test 07/15/21 05:30 07/16/21 05:00 White Blood Count 9.6 x10^3/uL (4.0-11.0) 9.0 x10^3/uL (4.0-11.0) Red Blood Count 3.52 x10^6/uL (4.30-5.70) 3.47 x10^6/uL (4.30-5.70) Hemoglobin 11.5 g/dL (13.0-17.5) 11.4 g/dL (13.0-17.5) Hematocrit 33.6 % (39.0-53.0) 33.3 % (39.0-53.0) Mean Corpuscular Volume 96 fL (79-100) 96 fL (79-100) Mean Corpuscular Hemoglobin 33 pg (25-35) 33 pg (25-35) Mean Corpuscular Hemoglobin Concent 34 g/dL (31-37) 34 g/dL (31-37) Red Cell Distribution Width 16.1 % (11.5-14.5) 16.3 % (11.5-14.5) Platelet Count 93 x10^3/uL (140-400) 107 x10^3/uL (140-400) Neutrophils (%) (Auto) 71 % (31-73) 74 % (31-73) Lymphocytes (%) (Auto) 14 % (24-48) 14 % (24-48) Monocytes (%) (Auto) 13 % (0-9) 11 % (0-9) Eosinophils (%) (Auto) 1 % (0-3) 1 % (0-3) Basophils (%) (Auto) 1 % (0-3) 0 % (0-3) Neutrophils # (Auto) 6.8 x10^3/uL (1.8-7.7) 6.7 x10^3/uL (1.8-7.7) Lymphocytes # (Auto) 1.4 x10^3/uL (1.0-4.8) 1.3 x10^3/uL (1.0-4.8) Monocytes # (Auto) 1.2 x10^3/uL (0.0-1.1) 1.0 x10^3/uL (0.0-1.1) Eosinophils # (Auto) 0.1 x10^3/uL (0.0-0.7) 0.1 x10^3/uL (0.0-0.7) Basophils # (Auto) 0.1 x10^3/uL (0.0-0.2) 0.0 x10^3/uL (0.0-0.2) Sodium Level 131 mmol/L (136-145) 133 mmol/L (136-145) Potassium Level 3.3 mmol/L (3.5-5.1) 3.4 mmol/L (3.5-5.1) Chloride Level 99 mmol/L (98-107) 99 mmol/L (98-107) Carbon Dioxide Level 24 mmol/L (21-32) 27 mmol/L (21-32) Anion Gap 8 (6-14) 7 (6-14) Blood Urea Nitrogen 13 mg/dL (8-26) 10 mg/dL (8-26) Creatinine 0.9 mg/dL (0.7-1.3) 0.9 mg/dL (0.7-1.3) Estimated GFR (Cockcroft-Gault) 88.3 88.3 BUN/Creatinine Ratio 14 (6-20) 11 (6-20) Glucose Level 116 mg/dL (70-99) 125 mg/dL (70-99) Calcium Level 7.7 mg/dL (8.5-10.1) 7.9 mg/dL (8.5-10.1) Magnesium Level 1.5 mg/dL (1.8-2.4) 1.8 mg/dL (1.8-2.4) Total Bilirubin 1.9 mg/dL (0.2-1.0) 1.6 mg/dL (0.2-1.0) Aspartate Amino Transf (AST/SGOT) 77 U/L (15-37) 70 U/L (15-37) Alanine Aminotransferase (ALT/SGPT) 38 U/L (16-63) 37 U/L (16-63) Alkaline Phosphatase 160 U/L (46-116) 165 U/L (46-116) Total Protein 6.3 g/dL (6.4-8.2) 6.4 g/dL (6.4-8.2) Albumin 1.9 g/dL (3.4-5.0) 1.8 g/dL (3.4-5.0) Albumin/Globulin Ratio 0.4 (1.0-1.7) 0.4 (1.0-1.7) Laboratory Tests Test 07/16/21 05:00 White Blood Count 9.0 x10^3/uL (4.0-11.0) Red Blood Count 3.47 x10^6/uL (4.30-5.70) Hemoglobin 11.4 g/dL (13.0-17.5) Hematocrit 33.3 % (39.0-53.0) Mean Corpuscular Volume 96 fL (79-100) Mean Corpuscular Hemoglobin 33 pg (25-35) Mean Corpuscular Hemoglobin Concent 34 g/dL (31-37) Red Cell Distribution Width 16.3 % (11.5-14.5) Platelet Count 107 x10^3/uL (140-400) Neutrophils (%) (Auto) 74 % (31-73) Lymphocytes (%) (Auto) 14 % (24-48) Monocytes (%) (Auto) 11 % (0-9) Eosinophils (%) (Auto) 1 % (0-3) Basophils (%) (Auto) 0 % (0-3) Neutrophils # (Auto) 6.7 x10^3/uL (1.8-7.7) Lymphocytes # (Auto) 1.3 x10^3/uL (1.0-4.8) Monocytes # (Auto) 1.0 x10^3/uL (0.0-1.1) Eosinophils # (Auto) 0.1 x10^3/uL (0.0-0.7) Basophils # (Auto) 0.0 x10^3/uL (0.0-0.2) Sodium Level 133 mmol/L (136-145) Potassium Level 3.4 mmol/L (3.5-5.1) Chloride Level 99 mmol/L (98-107) Carbon Dioxide Level 27 mmol/L (21-32) Anion Gap 7 (6-14) Blood Urea Nitrogen 10 mg/dL (8-26) Creatinine 0.9 mg/dL (0.7-1.3) Estimated GFR (Cockcroft-Gault) 88.3 BUN/Creatinine Ratio 11 (6-20) Glucose Level 125 mg/dL (70-99) Calcium Level 7.9 mg/dL (8.5-10.1) Magnesium Level 1.8 mg/dL (1.8-2.4) Total Bilirubin 1.6 mg/dL (0.2-1.0) Aspartate Amino Transf (AST/SGOT) 70 U/L (15-37) Alanine Aminotransferase (ALT/SGPT) 37 U/L (16-63) Alkaline Phosphatase 165 U/L (46-116) Total Protein 6.4 g/dL (6.4-8.2) Albumin 1.8 g/dL (3.4-5.0) Albumin/Globulin Ratio 0.4 (1.0-1.7) Microbiology 07/10/21 Urine Culture - Final, Complete 07/10/21 Blood Culture - Preliminary, Resulted Medications Current Medications Sodium Chloride 1,000 ml @ 1,000 mls/hr 1X ONCE IV Last administered on 07/10/21at 13:38; Start 07/10/21 at 13:15; Stop 07/10/21 at 14:14; Status DC Naloxone HCl (NARCAN 2mg SYRINGE) 2 mg 1X ONCE IV ; Start 07/10/21 at 13:15; Stop 07/10/21 at 13:16; Status DC Ondansetron HCl (Zofran) 4 mg PRN Q8HRS PRN IVP NAUSEA/VOMITING; Start 07/10/21 at 15:15; Stop 07/11/21 at 10:32; Status DC Sodium Chloride 1,000 ml @ 100 mls/hr 1X ONCE IV Last administered on 07/10/21at 16:42; Start 07/10/21 at 15:15; Stop 07/11/21 at 01:14; Status DC Iohexol (Omnipaque 350 Mg/ml) 75 ml 1X ONCE IV Last administered on 07/10/21at 15:59; Start 07/10/21 at 15:45; Stop 07/10/21 at 15:46; Status DC Acetaminophen (Tylenol) 650 mg PRN Q6HRS PRN PO MILD PAIN / TEMP > 100.3'F Last administered on 07/14/21at 19:36; Start 07/10/21 at 15:45 Aspirin (Ecotrin) 325 mg DAILYWBKFT PO ; Start 07/11/21 at 08:00; Stop 07/10/21 at 16:52; Status DC Aspirin (Aspirin Rectal Supp) 300 mg PRN DAILY PRN KS IF UNABLE TO TAKE PO; Start 07/10/21 at 15:45 Tramadol HCl (Ultram) 50 mg Q6HRS PRN PO MODERATE PAIN, SEVERE PAIN; Start 07/10/21 at 16:00; Stop 07/10/21 at 21:39; Status DC Sodium Chloride 1,000 ml @ 1,000 mls/hr 1X ONCE IV Last administered on 07/10/21at 16:41; Start 07/10/21 at 16:00; Stop 07/10/21 at 16:59; Status DC Ondansetron HCl (Zofran) 4 mg PRN Q6HRS PRN IVP NAUSEA/VOMITING; Start 07/10/21 at 16:00 Calcium Carbonate/ Glycine (Tums) 500 mg PRN Q3HRS PRN PO UPSET STOMACH; Start 07/10/21 at 16:00 Info (Non-Icu Electrolyte Protocol) 1 ea PRN DAILY PRN MC SEE COMMENTS; Start 07/10/21 at 16:00 Acetaminophen (Tylenol) 650 mg PRN Q6HRS PRN PO Headaches, Temp > 101.5F; Start 07/10/21 at 16:00; Status Cancel Senna/Docusate Sodium (Senna Plus) 1 tab BID PO Last administered on 07/13/21at 08:23; Start 07/10/21 at 21:00 Aspirin (Ecotrin) 81 mg DAILYWBKFT PO Last administered on 07/12/21at 08:47; Start 07/11/21 at 08:00; Stop 07/12/21 at 19:05; Status DC Tramadol HCl (Ultram) 50 mg PRN Q6HRS PRN PO MODERATE PAIN, SEVERE PAIN Last administered on 07/16/21at 04:18; Start 07/10/21 at 21:45 Info (FLU VACCINE SCREEN per RX) 1 each 1X ONCE MC ; Start 07/11/21 at 09:00; Stop 07/11/21 at 09:01; Status UNV Influenza Virus Vaccine Quadrival (Flulaval Quad [id number] Syringe) 0.5 ml ONCE ONCE VAX IM Last administered on 07/11/21at 09:26; Start 07/11/21 at 09:00; Stop 07/11/21 at 09:01; Status DC Vancomycin HCl (Vanco Per Pharmacy) 1 each PRN DAILY PRN MC SEE COMMENTS Last administered on 07/14/21at 06:07; Start 07/11/21 at 08:15; Stop 07/14/21 at 13:18; Status DC Piperacillin Sod/ Tazobactam Sod (Zosyn Per Pharmacy) 1 each PRN DAILY PRN MC SEE COMMENTS; Start 07/11/21 at 08:15; Stop 07/14/21 at 13:18; Status DC Piperacillin Sod/ Tazobactam Sod 3.375 gm/Sodium Chloride 50 ml @ 100 mls/hr Q6HRS IV Last administered on 07/14/21at 05:00; Start 07/11/21 at 10:00; Stop 07/14/21 at 13:18; Status DC Vancomycin HCl 2 gm/Sodium Chloride 500 ml @ 250 mls/hr 1X ONCE IV Last administered on 07/11/21at 11:34; Start 07/11/21 at 09:00; Stop 07/11/21 at 10:59; Status DC Lorazepam (Ativan) 2 mg PRN Q6HRS PRN PO ANXIETY / AGITATION Last administered on 07/11/21at 23:38; Start 07/11/21 at 08:45 Vancomycin HCl 1.5 gm/Sodium Chloride 500 ml @ 250 mls/hr Q12H IV ; Start 07/11/21 at 23:00; Stop 07/12/21 at 15:52; Status DC Perflutren Protein Type A Microsphe (Optison) 0.66 mg STK-MED ONCE IV ; Start 07/11/21 at 13:06; Stop 07/11/21 at 13:07; Status DC Vancomycin HCl (Vancomycin Trough Level) 1 each 1X ONCE MC ; Start 07/12/21 at 22:30; Stop 07/12/21 at 22:31; Status Cancel Perflutren Protein Type A Microsphe (Optison) 0.66 mg 1X ONCE IV Last administered on 07/11/21at 13:15; Start 07/11/21 at 13:15; Stop 07/11/21 at 13:16; Status DC Carvedilol (Coreg) 12.5 mg BIDWMEALS PO Last administered on 07/16/21at 08:38; Start 07/11/21 at 17:00 Furosemide (Lasix) 20 mg TIDAC PO Last administered on 07/12/21at 08:47; Start 07/11/21 at 16:30; Stop 07/12/21 at 15:12; Status DC Lisinopril (Prinivil) 40 mg DAILY PO Last administered on 07/16/21at 08:41; Start 07/11/21 at 15:00 Meloxicam (Mobic) 15 mg DAILY PO Last administered on 07/16/21at 08:40; Start 07/11/21 at 15:00 Pantoprazole Sodium (Protonix) 40 mg DAILYAC PO Last administered on 07/16/21at 05:17; Start 07/11/21 at 16:30 Atorvastatin Calcium (Lipitor) 10 mg QHS PO Last administered on 07/11/21at 21:41; Start 07/11/21 at 21:00; Stop 07/12/21 at 19:05; Status DC Belladonna Alkaloids/Opium (B & O) 1 supp PRN Q8HRS PRN KS BLADDER SPASM Last administered on 07/12/21at 10:57; Start 07/12/21 at 07:30 Linezolid (Zyvox) 600 mg BID PO Last administered on 07/12/21at 08:47; Start 07/12/21 at 09:00; Stop 07/12/21 at 16:00; Status DC Lidocaine HCl (Buffered Lidocaine 1%) 3 ml STK-MED ONCE .ROUTE ; Start 07/12/21 at 09:49; Stop 07/12/21 at 09:50; Status DC Lactobacillus Rhamnosus (Culturelle) 1 cap BID PO Last administered on 07/16/21at 08:39; Start 07/12/21 at 21:00 Furosemide (Lasix) 40 mg DAILY PO Last administered on 07/16/21at 08:40; Start 07/13/21 at 09:00 Vancomycin HCl 2 gm/Sodium Chloride 500 ml @ 250 mls/hr Q12H IV Last administered on 07/13/21at 17:00; Start 07/12/21 at 17:00; Stop 07/14/21 at 05:59; Status DC Vancomycin HCl (Vancomycin Trough Level) 1 each 1X ONCE MC Last administered on 07/14/21at 04:30; Start 07/14/21 at 04:30; Stop 07/14/21 at 04:31; Status DC Vancomycin HCl 2 gm/Sodium Chloride 500 ml @ 250 mls/hr Q8HRS IV Last administered on 07/14/21at 06:08; Start 07/14/21 at 06:00; Stop 07/14/21 at 13:18; Status DC Vancomycin HCl (Vancomycin Trough Level) 1 each 1X ONCE MC ; Start 07/15/21 at 05:30; Stop 07/15/21 at 05:31; Status Cancel Potassium Chloride (Klor-Con) 20 meq 1X ONCE PO Last administered on 06/23 12/10at 13:20; Start 07/14/21 at 11:30; Stop 07/14/21 at 11:31; Status DC Ceftriaxone Sodium (Rocephin) 2 gm Q24H IVP Last administered on 07/15/21at 14:01; Start 07/14/21 at 14:00 Guaifenesin/ Codeine Phosphate (Robitussin Ac) 5 ml PRN Q4HRS PRN PO COUGH Last administered on 07/16/21at 04:18; Start 07/14/21 at 18:30 Potassium Chloride (Klor-Con) 20 meq 1X ONCE PO Last administered on 07/15/21at 12:12; Start 07/15/21 at 12:00; Stop 07/15/21 at 12:01; Status DC Magnesium Sulfate 50 ml @ 25 mls/hr 1X ONCE IV Last administered on 07/15/21at 12:12; Start 07/15/21 at 12:00; Stop 07/15/21 at 13:59; Status DC Active Scripts Active Reported Meloxicam 15 Mg Tablet 1 Tab PO DAILY 30 Days Omeprazole 20 Mg Capsule.dr 1 Cap PO DAILY Pravastatin Sodium 40 Mg Tablet 1 Tab PO QHS Carvedilol (Carvedilol) 12.5 Mg Tablet 12.5 Mg PO BIDWMEALS Lisinopril 40 Mg Tablet 1 Tab PO DAILY Klor-Con 10 (Potassium Chloride) 10 Meq Tablet.er 10 Meq PO DAILY Furosemide 20 Mg Tablet 20 Mg PO TIDAC Vitals/I & O Vital Sign - Last 24 Hours 07/15/21 07/15/21 07/15/21 07/15/21 11:00 15:00 18:06 19:00 Temp 98.9 98.2 98.1 98.9 98.2 98.1 Pulse 71 72 72 70 Resp 14 14 18 B/P (MAP) 123/50 (74) 133/53 (79) 133/53 127/46 (73) Pulse Ox 94 93 93 O2 Delivery Room Air Room Air Room Air 07/15/21 07/15/21 07/16/21/25/21 19:20 22:54 02:54 04:18 Temp 99.3 98.2 99.3 98.2 Pulse 79 74 Resp 18 18 18 B/P (MAP) 153/67 (95) 112/39 (63) Pulse Ox 94 91 O2 Delivery Room Air Room Air Room Air Room Air 07/16/21 07/16/21 07/16/21 07/16/21 04:48 07:46 08:38 08:41 Temp 99.4 99.4 Pulse 75 75 75 Resp 18 18 B/P (MAP) 134/54 (80) 134/54 134/54 Pulse Ox 91 92 O2 Delivery Room Air Room Air Intake and Output 07/15/21 07/15/21 07/16/21 15:00 23:00 07:00 Intake Total 650 ml 500 ml 1340 ml Output Total 1750 ml 1000 ml Balance -1100 ml 500 ml 340 ml Justicifation of Admission Dx: Justifications for Admission: Justification of Admission Dx: Yes Sepsis: Infection Angina: Symp at Rest TAHMINA RAMIREZ MD Jul 16, 2021 08:53
[2021-07-16 10:55] VITALS: BP 122/60
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
[2021-07-16] MEDS ORDERED: POTASSIUM CHLORIDE 20 MEQ TABLET.ER. PO ONE (12:30)
[2021-07-16] MEDS ORDERED: FURO40TA4 PO (12:32)
[2021-07-16] MEDS ORDERED: POTA20TA4 PO (12:32)
--- NOTE | 2021-07-16 12:34 | SNU/HH DC ---
DISCHARGE WITH HOME HEALTH DISCHARGE INFORMATION: Final Diagnosis: Problems Medical Problems: (1) Acute renal insufficiency Status: Acute (2) Elevated transaminase level Status: Acute (3) Elevated troponin level Status: Acute (4) Thrombocytopenia Status: Acute Condition on Discharge: Stable CODE STATUS: Code Status: Full HOME HEALTH: Face to Face: I certify this patient is under my care and that I, or a nurse practitioner or physician's assistant family teacher working with me, had a face to face encounter that meets the physician face to face encounter requirements with this patient on []. Medical Complications: CHF Detention For: Assess Cardiopulm Status RN For Eval/Treatment: Yes Physical Therapy For: Evalulation/Treatment Occupational Therapy For: Evaluation/Treatment Home Health Aide For: Self-care [employer] For: Community Resources Pt Meets Homebound Status: Poor coordination w/ amb. POST DISCHARGE ORDERS: Activity Instructions for Disc: Activity as tolerated Weight Bearing Status after Di: As tolerated DIET AFTER DISCHARGE: Cardiac Wound/Incision Care: No wound care needed CHECKS AFTER DISCHARGE: Checks after discharge: Check blood press - daily, Check blood sugar, ac/hs, Check your Temp as needed, Weigh Yourself Daily TREATMENT/EQUIPMENT ORDERS: Adaptive Equipment Issued: None CERTIFICATION STATEMENT: Certification Statement: Certification Statement: Based on the above finding, I certify that this patient is confined to the home and needs intermittent retirement care, physical therapy and/or speech therapy, or continues to need occupational therapy.~ This patient is under my care, and I have initiated the establishment of the plan of care.~ This patient will be followed by myself or a community physician who will periodically review the plan of care. Home Meds Reported Medications Meloxicam (MELOXICAM) 15 Mg Tablet, 1 TAB PO DAILY for pain for 30 Days, #30 TAB 0 Refills 07/11/21 Omeprazole (OMEPRAZOLE) 20 Mg Capsule.dr, 1 CAP PO DAILY for GI, #30 CAP 5 Refills 07/11/21 Pravastatin Sodium (PRAVASTATIN SODIUM) 40 Mg Tablet, 1 TAB PO QHS for high cholesterol, #90 TAB 1 Refill 05/01/20 Carvedilol (CARVEDILOL ) 12.5 Mg Tablet, 12.5 MG PO BIDWMEALS for CARDIAC, TAB 05/01/20 Lisinopril (LISINOPRIL) 40 Mg Tablet, 1 TAB PO DAILY for hypertension, #30 TAB 5 Refills 05/01/20 Potassium Chloride (KLOR-CON 10) 10 Meq Tablet.er, 10 MEQ PO DAILY for replacement, TAB 04/07/20 Furosemide (FUROSEMIDE) 20 Mg Tablet, 20 MG PO TIDAC for removes water, TAB 04/07/20 AYANNA ACOSTA III DO Jul 16, 2021 12:34
--- NOTE | 2021-07-16 12:51 | DS ---
DATE OF DISCHARGE: 07/16/2021 ADMITTING DIAGNOSES: Mental status change, metabolic encephalopathy, congestive heart failure, morbid obesity. DISCHARGE DIAGNOSES: Resolving congestive heart failure, resolving metabolic encephalopathy, resolving cellulitis, mild hidradenitis suppurativa, Gram-positive bacteremia, resolving acute renal insufficiency, resolving hypokalemia, resolving hypomagnesemia, history of old stroke, history of cirrhosis. CONSULTS: Cardiology, Neurology and Nephrology. PROCEDURES: None. HOSPITAL COURSE: The patient is a pleasant middle-aged male who is morbidly obese and has multiple comorbidities, basically presented with mental status changes, seemed to be in heart failure and somewhat encephalopathic. The above consults were obtained. We gave him IV antibiotics, gentle IV fluids. Monitor his labs, replace his magnesium and potassium. Did some physical therapy and occupational therapy. Today, when I saw and examined him, he is at his baseline, requesting to go home. He is more alert and doing well. I have stopped his IV antibiotics. I have given a script for Augmentin 875 p.o. b.i.d. and a home commode. We plan to discharge with home health. DISPOSITION: Home with home health. ACTIVITY: As tolerated. DIET: Low sodium. MEDICATIONS: Augmentin 875 p.o. b.i.d., Lasix 40 a day, potassium 40 a day, carvedilol 12.5 b.i.d., lisinopril 40 a day, meloxicam 15 a day, omeprazole 20 a day, pravastatin 40 a day. TOTAL TIME: 34 minutes. [facility] DR: Ernesto TID: [id number]
[2021-07-16] MEDS: cefTRIAXone IV Push 2 GM VIAL. IVP SCH (14:00)
--- NOTE | 2021-07-16 16:31 | NUR ---
Discharge Note: CALI JORDAN COX BRANSON Discharge instructions and discharge home medications reviewed with Patient and a copy given. All questions have been answered and understanding verbalized. Pt denied home health stating "my works with [employer] and can get me help". Pt discharged in stable condition via wheelchair.
== END 2021-07-16 14:10 | disposition home health service (06) | DRG 871 ==
LOC: ER 13:03 → ED HOLD 14:00 → 6 SOUTH 15:13
PROVIDERS: ADMIT Internal Medicine; ATTEND Internal Medicine
PROC: 02HV33Z Insertion of Infusion Device into Superior Vena Cava, Percutaneous Approach (ICD-10-PCS; principal; 2021-07-12)
DX: A41.89 Other specified sepsis (principal); G93.41 Metabolic encephalopathy; D68.9 Coagulation defect, unspecified; Z68.44 Body mass index [BMI] 60.0-69.9, adult; E87.1 Hypo-osmolality and hyponatremia; L03.90 Cellulitis, unspecified; N17.9 Acute kidney failure, unspecified; B96.89 Other specified bacterial agents as the cause of diseases classified elsewhere; D69.6 Thrombocytopenia, unspecified; E11.9 Type 2 diabetes mellitus without complications; E66.01 Morbid (severe) obesity due to excess calories; E78.5 Hyperlipidemia, unspecified; E83.42 Hypomagnesemia; E87.6 Hypokalemia; E88.09 Other disorders of plasma-protein metabolism, not elsewhere classified; I11.0 Hypertensive heart disease with heart failure; I50.9 Heart failure, unspecified; K74.60 Unspecified cirrhosis of liver; L73.2 Hidradenitis suppurativa; Z82.49 Family history of ischemic heart disease and other diseases of the circulatory system; Z86.73 Personal history of transient ischemic attack (TIA), and cerebral infarction without residual deficits; Z95.5 Presence of coronary angioplasty implant and graft; Z98.1 Arthrodesis status; G89.29 Other chronic pain; G47.30 Sleep apnea, unspecified; I25.10 Atherosclerotic heart disease of native coronary artery without angina pectoris; I25.2 Old myocardial infarction; Z86.14 Personal history of Methicillin resistant Staphylococcus aureus infection; Z20.822 Contact with and (suspected) exposure to COVID-19
CPT/HCPCS: 96360; 96361; 99285; C8929; 36415; 36569; 70450; 70496; 70498; 71045; 80053; 80061; 80202; 80307; 81001; 82140; 82550; 82565; 82962; 83036; 83605; 83735; 84439; 84443; 84484; 85007; 85025; 85610; 85730; 87040; 87077; 87086; 87186; 87205; 87426; 90471; 90686; 93005; G0480; J0696; J2543; J3370; J3475; J7030; J7040; Q9956; Q9967; U0003; U0005; 92610-GN; 97530-GP; G0378